=== PATIENT | female | born 1995 | race Caucasian/White ===

== ENCOUNTER 2022-06-01 14:53 | Outpatient (CLI) | payer MEDICAID, SELFPAY ==
--- OUTSIDE RECORDS SUMMARY | 2022-06-01 10:17 | XMS_ITS | Encounter Summary ---
:1995 Author Organization [facility] Address [address] [place] [address] Care Team Providers Name Role Phone Alina Morales M.D. Primary Care Provider [phone] Encounter Details Date Type Department Care Team Description 03/03/2020 Orders Only RST PCP [facility] MNT Alina Young M.D. [address] [place], [place] [phone] (Wo rk) Social History Tobacco Use Types Packs/Day Years Used Date Smoking Tobacco: Never Sex Assigned at Date Recorded Not on file documented as of this encounter Plan of Treatment Not on filedocumented as of this encounter Visit Diagnoses Not on filedocumented in this encounter Care Teams Pc Installation Engineer Relationship Specialty Start Date End Date Alina Morales M.D. PCP - General 03/31/17 11/26/20 [address] [place] [address] documented as of this encounter
--- OUTSIDE RECORDS SUMMARY | 2022-06-01 10:17 | XMS_ITS | Encounter Summary ---
:1995 Author Organization [facility] Address [address] [place] [address] Care Team Providers Name Role Phone Justin Taylor M.D. Primary Care Provider Encounter Details Date Type Department Care Team Description 06/02/2021 Orders Only [facility] Joan Bradford M.D. [address] [facility] [place] [phone] (Wo rk) Social History Tobacco Use Types Packs/Day Years Used Date Smoking Tobacco: Never Sex Assigned at Date Recorded Not on file documented as of this encounter Plan of Treatment Not on filedocumented as of this encounter Visit Diagnoses Not on filedocumented in this encounter Care Teams Asphalt Smoother Relationship Specialty Start Date End Date Justin Taylor M.D. PCP - General 11/27/20 [address] [facility] [place] [address] documented as of this encounter
--- OUTSIDE RECORDS SUMMARY | 2022-06-01 10:17 | XMS_ITS | Encounter Summary ---
:1995 Author Organization [facility] Address [address] [place] [address] Care Team Providers Name Role Phone Justin Taylor M.D. Primary Care Provider Encounter Details Date Type Department Care Team Description 02/03/2021 Orders Only [facility] Sa jenny James M.D. [address] [place], [place] [phone] (Wo rk) Social History Tobacco Use Types Packs/Day Years Used Date Smoking Tobacco: Never Sex Assigned at Date Recorded Not on file documented as of this encounter Plan of Treatment Not on filedocumented as of this encounter Visit Diagnoses Not on filedocumented in this encounter Care Teams Senior Business Consultant Relationship Specialty Start Date End Date Justin Taylor M.D. PCP - General 11/27/[address] [place], [place] [address] [phone] documented as of this encounter
--- OUTSIDE RECORDS SUMMARY | 2022-06-01 10:17 | XMS_ITS | Encounter Summary ---
:1995 Author Organization [facility] Address [address] [place] [address] Care Team Providers Name Role Phone Alina Morales M.D. Primary Care Provider [phone] Encounter Details Date Type Department Care Team Description 06/23/2017 Hospital Encounter HX [facility] Robert Medley, P.A.-CCat [address] [place], [place] [phone] (Wo rk) Social History Tobacco Use Types Packs/Day Years Used Date Smoking Tobacco: Never Sex Assigned at Date Recorded Not on file documented as of this encounter Last Filed Vital Signs Vital Sign Reading Time Taken Comments Blood Pressure 110/70 06/23/2017 10:24 AM CDT Pulse 68 06/23/2017 10:24 AM CDT Temperature - - Respiratory Rate 16 06/23/2017 10:24 AM CDT Oxygen Saturation - - Inhaled Oxygen Concentration - - Weight 76.1 kg (167 lb 12.3 oz) 06/23/2017 10:24 AM CDT Height 163 cm (5' 4.17) 06/23/2017 10:24 AM CDT Body Mass Index 28.64 06/23/2017 10:24 AM CDT documented in this encounter Progress Notes Andria Matias, P.A.-C. - 06/23/2017 10:11 AM CDT FM-LE CHEEIF COMPLAINT Rash, missed period HISTORY OF PRESENT ILLNESS Ishaan is a very pleasant 22-year-old female patient who presents to the clinic today for evaluationof patches of skin that have been present for approximately 2 months now. Patient states that the patches of skin are not bothersome to her. The first one actually started on her right trunk just underthe right axilla. That one is the biggest. It is slightly raised, red, and oblong with big borders. She then developed a couple more of the patches on the nape of her neck and just a couple scattered on the trunk. There may be 5 of them total today. Patient states she has pretty much tried everything on them. She has tried an antifungal cream, and she states that that just made them burn. She has tried an antibacterial. She has tried a certain salve that her grandfather gave her. She has not tried any steroids. She is not having any systemic symptoms. Patient does note that she has actually missed 2 periods now. However, she had her last period at the end of March or early April. And now it is a month later and she has just missed her second period. She states she and her boyfriend are living together and were not specifically trying to get but were not against getting , so this would be happy news if she did end up being . She is not having any vaginal bleeding or vaginal discharge. MEDICATIONS TriNessa oral tablet daily. ALLERGIES No known allergies. DIAGNOSTICS She has done 2 home tests, which have been negative. Physical exam Skin: approximately 1cm x2 cm slightly rasied erythematous patches over right axilla and left nape of neck IMPRESSION/REPORT/PLAN 1. Pityriasis rosea. I think patient's rash is most consistent with pityriasis rosea. I printed information for patient about this rash. Generally duration of rash is approximately 2 to 3 months. It has been about 2 months. I did prescribe triamcinolone cream for patient to use on the rash. 2. Amenorrhea. Beta HCG lab draw today as patient has had 2 negative tests. It could be her HCG was low positive as this could be early versus other, so we will repeat the beta HCG test in approximately 1 week. If it is elevated, we will send to OB. Andria Matias P.A.-C./ariella Electronically Signed By: ANDRIA MATIAS PA-C On: 07/06/2017 06:23 PM Modified by and Electronically Signed by: ANDRIA MATIAS PA-C On: 07/06/2017 06:23 PM Source: [facility] MHSDOLHERACLIOSYS Document Id: [id number] documented in this encounter Miscellaneous Notes Miscellaneous - Jaret Kyle L.P.N. - 06/27/2017 9:49 AM CDT set up OB appointments Document Contains Addenda Addendum by JENNIFER CAGE RN on June 27, 2017 10:40:06 CDT Spoke with Ishaan. States she is seeing a different provider for her . Addendum by JENNIFER CAGE RN on June 27, 2017 10:30:29 CDT Called Ishaan. No answer. Left message to call clinic back. From: JARET KYLE LPN ( Polly Nurse) To: FB Obstetrics/Gynecology Nurse; Sent: 06/27/2017 09:49:10 CDT Subject: set up OB appointments Patient was in to see Andria on 06/23. She had a blood drawn hCG that came back elevated. We need to set patient up for OB appointments. Source: [facility] POWERCHART Document Id: [id number] Miscellaneous - Andria Matias P.A.-C. - 06/23/2017 6:19 PM CDT Results Notification Document Contains Addenda Addendum by ANDRIA MATIAS PA-C on July 01, 2017 15:25:55 CDT noted. Addendum by JARET KYLE LPN on June 27, 2017 13:58:17 CDT Spoke with: ( X ) Patient ( _ ) Parent ( _ ) Spouse ( _ ) Child ( ) Other: _ Call back telephone number: [phone] Reason for Call: -lab results Chief Complaint: Patient informed of message below, transferred to schedule lab only appointment Patient/Caller response to Education/Information given: ( X ) Verbalizes understanding of instructions ( _ ) Provide intervention per provider instruction ( _ ) Reinforce information already given ( _ ) Reinforce Plan of Care ( _ ) Provide preprinted information by mail (if applicable) Source/Reference used (if applicable): Andria Matias OK to leave message on voice mail? DEWEY OK to send message via patient portal? _ Patient told to expect return call: ( _ ) today ( _ ) tomorrow ( _ ) next work day Callers preferred language for Healthcare discussion: czech Was an senior asic design engineer used for this call? no Other ( --_ ) Addendum by FREDDY VALLADARES on June 27, 2017 13:02:40 CDT Pt returning call to nurse, please call back [phone] Addendum by ANDRIA MATIAS PA-C on June 27, 2017 12:55:26 CDT From: ANDRIA MATIAS PA-C To: DARIO Matias Nurse; Sent: 06/27/2017 12:55:26 CDT Show up: 06/27/2017 12:34:00 CDT Subject: RE: Results Notification I tried to call her to explain to her that after looking further at her pregnany hormone result, it is a low positive so I have been informed that we should recheck the result in about a week to see ifit continues to rise before she sees OB. I am sorry to say that it is a possiblity that it is a false positive versus an early . So our first step is to recheck the blood test. then if the second blood test is elevated, we will send her to OB. left message asking her to call back. If she calls back looking for information you may let her known and help her schedule another blood test Addendum by JARET KYLE LPN on June 27, 2017 09:46:18 CDT From: JARET KYLE LPN ( Polly Nurse) To: ANDRIA MATIAS PA-C; Sent: 06/27/2017 09:46:18 CDT Show up: 06/27/2017 09:46:00 CDT Subject: RE: Results Notification In [place] we just need to send a message to the OB nurses and they will call the patient to set up her appointments. From: ANDRIA MATIAS PA-C To: DARIO Matias Nurse; Sent: 06/23/2017 18:19:00 CDT Show up: 06/23/2017 18:12:00 CDT Subject: Results Notification called patient to let her know that her hormone is elevated. Please find out the process for patient's for starting OB care here. I know regina acevedo, the patient's meet with Shanell Kaplan RN to get set up for OB cares and have appropriate testing. Is there an equivalent in [place] or do I just do an OB referral? Results: Date Result Name Ind Value Ref Range 06/23/2017 11:34 Beta hCG Qnt (H) 38.0 IU/L ( - <=4.9) Source: [facility] POWERCHART Document Id: [id number] Miscellaneous - Jaret Kyle L.P.NCat - 06/23/2017 10:28 AM CDT Health Assessment Health Assessment Entered On: 06/23/2017 10:29 CDT Performed On: 06/23/2017 10:28 CDT by JARET KYLE LPN Health Assessment Complete Health Assessment Complete or Modified : Annual Health Assessment Annual Health Assessment Completed : Yes JARET KYLE LPN - 06/23/2017 10:28 CDT Nutrition Nutrition Risk Factors by History Adult : None JARET KYLE LPN - 06/23/2017 10:28 CDT Functional Current Daily Living Assistance : None JARET KYLE LPN - 06/23/2017 10:28 CDT Dependent Habits Exposure to Tobacco Smoke : Lives with someone who smokes, Other: Never Smoking Status : Never smoker Tobacco 2A : No Tobacco Use/Currently Using : No Tobacco Use/Last 30 Days : No Tobacco Use/Last 12 months : No Alcohol Use : No JARET KYLE LPN - 06/23/2017 10:28 CDT Caffeine Use Grid Caffeine Use : Current Type : Chocolate, Coffee, Soft drinks Frequency : Daily Amount : 1 cup coffee JARET KYLE LPN - 06/23/2017 10:28 CDT Psychosocial Domestic Abuse Concerns : None Behavioral Health Screen/Safety Assmt : No Orthodox Preference : No qualifying data available. JARET KYLE LPN - 06/23/2017 10:28 CDT Advance Directive Advanced Directives : No Advance Directive Additional Information : No JARET KYLE LPN - 06/23/2017 10:28 CDT Educ Needs Learning Style Preference Adult Grid Patient : Demonstration Family : None JARET KYLE LPN - 06/23/2017 10:28 CDT [facility] Document Id: [id number] CDT!33 Miscellaneous - Jaret Kyle L.PCatNCat - 06/23/2017 10:24 AM CDT Adult Solutions Engineer Intake/History Adult Solutions Engineer Intake/History Entered On: 06/23/2017 10:28 CDT Performed On: 06/23/2017 10:24 CDT by JARET KYLE LPN Intake Chief Complaint : red patches on back of neck and under arms - 2 months, itches, trying to get - missed period last month, home tests negative Temperature Core : 37.2 DegC(Converted to: 99.0 DegF) Peripheral Pulse Rate : 68 /min Respiratory Rate : 16 /min Systolic Blood Pressure : 110 mmHg Diastolic Blood Pressure : 70 mmHg NIBP Mean : 83 mmHg BP Location : Left upper extremity Blood Pressure Cuff Size : Regular Height : 163 cm(Converted to: 5 ft 4 inch(es), 64 inch(es)) Actual Weight : 76.1 kg(Converted to: 167 lb 12 oz) Weight Source : Standing scale Dosing Weight Clinic : 76.1 kg Clinic BSA : 1.86 Body Mass Index : 28.64 kg/m2 JARET KYLE KATHIE - 06/23/2017 10:24 CDT General Info Information Given By : Patient Preferred Communication Mode : Verbal, Written Languages : Amharic Is Patient Female and 13-50 no hysterectomy : Yes Status : Patient denies Are you ? : No JARET KYLE KATHIE - 06/23/2017 10:24 CDT Subjective Pain Symptoms : No JARET KYLE KATHIE - 06/23/2017 10:24 CDT Dependent Habits Exposure to Tobacco Smoke : Lives with someone who smokes, Other: Never Smoking Status : Never smoker Tobacco 2A : No Tobacco Use/Currently Using : No Tobacco Use/Last 30 Days : No Tobacco Use/Last 12 months : No JARET KYLE KATHIE - 06/23/2017 10:24 CDT Caffeine Use Grid Caffeine Use : Current Type : Chocolate, Coffee, Soft drinks Frequency : Daily Amount : 1 cup coffee JARET KYLE Sharif SHEARER HELPER - 06/23/2017 10:24 CDT Source: [facility] PortafareCHART Document Id: [id number] CDT!39 documented in this encounter Plan of Treatment Not on filedocumented as of this encounter Procedures Procedure Name Priority Date/Time Associated Diagnosis Comme nts BHCG (BETA-HUMAN Routine 06/23/2017 11:34 AM Resu lts for this CHORIONIC CDT procedure are i n GONADOTROPIN), the results MILENA, S section. documented in this encounter Results (ABNORMAL) bHCG (Beta-Human Chorionic Gonadotropin), Quantitative (06/23/2017 11:34 AM CDT) P athologist Signature Beta-HCG, 38.0 (H) <=4.9 IUL POWERCHART Quantitative, S Comment: Tanisha- and postmenopausal females >40 yea rs of age may have detectable hCG concentrations (<14 IU/L) due to pituitary production of hCG. Biotin has been identified by the malka mcmillan as a potential interfering substance. Higher concentrations of biotin may be found in multivitamins, hair/nail supplements, and workout supplements. If the result does not match clinical observat ions, repeat testing after patient refrains from the use of supplements for at least 12 hours. Specimen (Source) Anatomical Collection Method Collection Time Re ceived Time Location / / Volume Laterality Blood 06/23/2017 11:34 AM CDT Andria Medley P.A.-C. LAB BLOOD ADD-ON Performing Organization Address City/State/ZIP Code Phon e Number POWERCHART POWERCHART NA documented in this encounter Visit Diagnoses Not on filedocumented in this encounter Care Teams Cobol Programmer Relationship Specialty Start Date End Date Alina Morales M.D. PCP - General 03/31/17 11/26/20 [address] [address] documented as of this encounter
--- OUTSIDE RECORDS SUMMARY | 2022-06-01 10:17 | XMS_ITS | Encounter Summary ---
:1995 Author Organization [facility] Address [address] [place] [address] Care Team Providers Name Role Phone Alina Morales M.D. Primary Care Provider [phone] Encounter Details Date Type Department Care Team Description 09/06/2018 Orders Only Department of [place], [address] [place] [address] [place] [address] [place] [address] Social History Tobacco Use Types Packs/Day Years Used Date Smoking Tobacco: Never Sex Assigned at Date Recorded Not on file documented as of this encounter Plan of Treatment Not on filedocumented as of this encounter Visit Diagnoses Not on filedocumented in this encounter Care Teams Slip Maker Relationship Specialty Start Date End Date Alina Morales M.D. PCP - General 03/31/17 11/26/20 [address] [place] [phone] documented as of this encounter
--- OUTSIDE RECORDS SUMMARY | 2022-06-01 10:17 | XMS_ITS | Clinical Summary ---
:1995 Author Organization [facility] Address [address] [place] [address] Care Team Providers Name Role Phone Justin Taylor M.D. Primary Care Provider Source Comments Patient records contain information from all sites at [facility]. For routine questions regarding patient records, call [phone] during business hours, M-F 8:00 AM - 5:00 PM Central Time. Record requests for emergency care only can be directed to [phone] at any time.[facility] Immunizations Name Administration Dates Next Due HepB, Unspecified 1995, 1995, 1995 MMR 01/28/2000 MMRV 08/16/1996 MPSV4 01/26/2007 Tdap 01/26/2007 Family History Medical History Relation Name Comments Hypothyroidism Mother Relation Name Status Comments Mother Social History Tobacco Use Types Packs/Day Years Used Date Smoking Tobacco: Never Sex Assigned at Date Recorded Not on file Last Filed Vital Signs Vital Sign Reading Time Taken Comments Blood Pressure 110/70 06/23/2017 10:24 AM CDT Pulse 68 06/23/2017 10:24 AM CDT Temperature - - Respiratory Rate 16 06/23/2017 10:24 AM CDT Oxygen Saturation - - Inhaled Oxygen Concentration - - Weight 76.1 kg (167 lb 12.3 oz) 06/23/2017 10:24 AM CDT Height 163 cm (5' 4.17) 06/28/2017 11:56 AM CDT Body Mass Index 28.64 06/23/2017 10:24 AM CDT Plan of Treatment Health Maintenance Due Date Last Done Comments HIV Screening 1995 Hepatitis C Screening 1995 COVID-19 Vaccine (#1) 1995 Depression Screening 10/17/2021 (Annual PHQ-2) Influenza Vaccine (#1) 2022 07/17/2019, 08/02/2011, 08/02/2011, Additional history exists Cervical Cancer Screening 02/28/2024 02/27/2021 DTaP,Tdap,and Td Vaccines 07/31/2031 07/31/2021, 01/06/2018 , (9 - Td or Tdap) 01/26/2007, Additional history exists Hepatitis B Vaccines Completed 1995, 1995, 1995, Additional history exists Pneumococcal vaccine (0-64 Aged Out No lo nger eligible years) based on patient 's age to complete this topic Insurance Payer Benefit Plan / Subscriber ID Effective Phone Address T ype Group Dates [facility] [id number] 2020-Pres [phone] [address] PPO OPEN ACCESS [facility] [place] [address] Care Teams Betting Agency Manager Relationship Specialty Start Date End Date Justin Taylor M.D. PCP - General 11/27/[address] [place] [address] [place] [phone]
--- OUTSIDE RECORDS SUMMARY | 2022-06-01 10:17 | XMS_ITS | Encounter Summary ---
:1995 Author Organization [facility] Address [address] [place] [address] Care Team Providers Name Role Phone Alina Morales M.D. Primary Care Provider [phone] Encounter Details Date Type Department Care Team Description 06/28/2017 Hospital Encounter HX [facility] Alina Wu M.D. [address] [place], [place] [phone] (Wo rk) Social History Tobacco Use Types Packs/Day Years Used Date Smoking Tobacco: Never Sex Assigned at Date Recorded Not on file documented as of this encounter Last Filed Vital Signs Vital Sign Reading Time Taken Comments Blood Pressure - - Pulse - - Temperature - - Respiratory Rate - - Oxygen Saturation - - Inhaled Oxygen Concentration - - Weight - - Height 163 cm (5' 4.17) 06/28/2017 11:56 AM CDT Body Mass Index - - documented in this encounter Miscellaneous Notes Miscellaneous - Andria Matias P.A.-C. - 06/29/2017 1:32 PM CDT Addendum by ANDRIA MATIAS PA-C on July 01, 2017 16:47:40 CDT noted. Addendum by JENNIFER CAGE RN on June 30, 2017 13:09:52 CDT From: JENNIFER CAGE RN (FB Obstetrics/Gynecology RN) To: ANDRIA MATIAS PA-C; ISHAAN SULLIVAN Sent: 06/30/2017 13:09:52 CDT Subject: RE: Spoke with this patient yesterday. She has chosen a different provider for her . From: ANDRIA MATIAS PA-C To: ISHAAN SULLIVAN Cc: FB Obstetrics/Gynecology RN; Sent: 06/29/2017 13:32:08 CDT Ishaan, Your Beta HCG is much higher than it was last week meaning that is much more probable. Last week the was at 38; now it is at 568. Congratulations! It seems that it is still very early pregnacny and would have been to early to see anything on the urine tests. You will have to make an appointment in the traffic clerk department so I will send a message to them and you should be able to schedule to get things started. Sincerely, Andria Matias PA-C OB nursing, will you please help this patient get set up for OB care? Results: Date Result Name Ind Value Ref Range 06/28/2017 12:01 Beta hCG Qnt (H) 568.8 IU/L ( - <=4.9) Source: [facility] POWERCHART Document Id: [id number] documented in this encounter Plan of Treatment Not on filedocumented as of this encounter Procedures Procedure Name Priority Date/Time Associated Diagnosis Comme nts BHCG (BETA-HUMAN Routine 06/28/2017 12:01 PM Resu lts for this CHORIONIC CDT procedure are i n GONADOTROPIN), the results MILENA, S section. documented in this encounter Results (ABNORMAL) bHCG (Beta-Human Chorionic Gonadotropin), Quantitative (06/28/2017 12:01 PM CDT) Analysis Performed At Patho logist Time Signature Beta-HCG, 568.8 (H) <=4.9 IUL POWERCHART Quantitative, S Comment: Tanisha- and postmenopausal females >40 yea rs of age may have detectable hCG concentrations (<14 IU/L) due to pituitary production of hCG. Biotin has been identified by the [facility] as a potential interfering substance. Higher concentrations of biotin may be found in multivitamins, hair/nail supplements, and workout supplements. If the result does not match clinical observat ions, repeat testing after patient refrains from the use of supplements for at least 12 hours. Specimen (Source) Anatomical Collection Method Collection Time Re ceived Time Location / / Volume Laterality Blood 06/28/2017 12:01 PM CDT Andria Medley P.A.-C. LAB BLOOD ADD-ON Performing Organization Address City/State/ZIP Code Phon e Number POWERCHART POWERCHART NA documented in this encounter Visit Diagnoses Not on filedocumented in this encounter Care Teams Recep Relationship Specialty Start Date End Date Alina Morales M.D. PCP - General 03/31/17 11/26/[address], [place] [address] documented as of this encounter
--- OUTSIDE RECORDS SUMMARY | 2022-06-01 10:17 | XMS_ITS | Encounter Summary ---
:1995 Author Organization [facility] Address [address] [place] [address] Care Team Providers Name Role Phone Unavailable Primary Care Provider Unavailable Encounter Details Date Type Department Care Team Description 04/02/2015 Hospital Encounter HX [facility] Bo Cameron, P.A. -C. [address] [place] [address] (Wo rk) Social History Tobacco Use Types Packs/Day Years Used Date Smoking Tobacco: Never Assessed Sex Assigned at Date Recorded Not on file documented as of this encounter Last Filed Vital Signs Vital Sign Reading Time Taken Comments Blood Pressure - - Pulse - - Temperature - - Respiratory Rate - - Oxygen Saturation - - Inhaled Oxygen Concentration - - Weight - - Height 163 cm (5' 4.17) 04/02/2015 8:22 AM CDT Body Mass Index - - documented in this encounter Miscellaneous Notes Miscellaneous - Migdalia Miller, R.N. - 04/02/2015 8:23 AM CDT PPD Screen PPD Screen Entered On: 04/02/2015 8:24 CDT Performed On: 04/02/2015 8:23 CDT by MIGDALIA MILLER PPD Screening Bloody Sputum : No Fatigue : No Fever : No Loss of Appetite : No Night Sweats : No Persistent Cough Greater Than 3 Weeks : No Weight Loss : No MIGDALIA MILLER - 04/02/2015 8:23 CDT TB Symptoms Grid Alcohol and Drug Use : No Employee of Institutional Living Environment : No Health Care Employee : Yes History of Exposure to TB : No History of Positive Chest X-Ray for TB : No History of Positive TB Skin Test : No Homeless : No Known Immunosuppression : No Recent Immigrant : No Resident of Institutional Living Environment : No MIGDALIA MILLER - 04/02/2015 8:23 CDT PPD Screening Grid Severe reaction to previous TST (necrosis, blistering, anaphylactic shock, or ulcerations) : No Smallpox vaccine within last 4 - 6 weeks : No Yellow Fever vaccine in last 4 - 6 weeks : No Varicella vaccine within last 4 - 6 weeks : No Measles vaccine within last 4 - 6 weeks : No Any live virus vaccine within last 4 - 6 weeks : No MIGDALIA MILLER - 04/02/2015 8:23 CDT Source: [employer] Document Id: [id number] CDT!28 documented in this encounter Plan of Treatment Not on filedocumented as of this encounter Visit Diagnoses Not on filedocumented in this encounter
--- OUTSIDE RECORDS SUMMARY | 2022-06-01 10:17 | XMS_ITS | Encounter Summary ---
:1995 Author Organization [facility] Address [address] [place] [address] Care Team Providers Name Role Phone Unavailable Primary Care Provider Unavailable Encounter Details Date Type Department Care Team Description 04/04/2015 Hospital Encounter HX [facility] Provider, Cody rodriguez Social History Tobacco Use Types Packs/Day Years [...] - - Height 163 cm (5' 4.17) 04/04/2015 8:33 AM CDT Body Mass Index - - documented in this encounter Procedure Notes Halima Malhotra, L.P.N. - 04/04/2015 8:41 AM CDT PPD Reading PPD Reading Entered On: 04/04/2015 8:41 CDT Performed On: 04/04/2015 8:41 CDT by HALIMA MALHOTRA PPD Reading MM of Induration : 0 mm PPD Interpretation : Negative PPD Placed On : Right inner forearm PPD Date/Time Administered : 04/02/2015 8:36 CDT HALIMA MALHOTRA - 04/04/2015 8:41 CDT Source: [facility] POWERCHART Document Id: [id number] CDT!6 documented in this encounter Plan of Treatment Not on filedocumented as of this encounter Procedures Procedure Name Priority Date/Time Associated Diagnosis Comme nts HX TB SKIN TEST-LAB Routine 04/04/2015 8:41 AM Re sults for this CDT procedure are i n the results section. documented in this encounter Results HX TB SKIN TEST-LAB (04/04/2015 8:41 AM CDT) P athologist Signature TB Skin Test 0 MM POWERCHART TB Skin Test Negative POWERCHART Specimen (Source) Anatomical Collection Method Collection Time Re ceived Time Location / / Volume Laterality 04/04/2015 8:41 AM CDT Alina Morales M.D. LAB HISTORICAL ORDERS Performing Organization Address City/State/ZIP Code Phon e Number POWERCHART documented in this encounter Visit Diagnoses Not on filedocumented in this encounter
--- OUTSIDE RECORDS SUMMARY | 2022-06-01 10:17 | XMS_ITS | Encounter Summary ---
:1995 Author Organization [facility] Address [address] [place] [address] Care Team Providers Name Role Phone Unavailable Primary Care Provider Unavailable Encounter Details Date Type Department Care Team Description 09/22/2015 Hospital Encounter HX [facility] FAMILYPRA Andra Jimenez APRN, C.N.P. [address] [place] [address] (Wo rk) Social History Tobacco Use Types Packs/Day Years Used Date Smoking Tobacco: Never Assessed Sex Assigned at Date Recorded Not on file documented as of this encounter Last Filed Vital Signs Vital Sign Reading Time Taken Comments Blood Pressure 110/64 09/22/2015 2:49 PM LABEL PINKER Pulse 72 09/22/2015 2:49 PM LABEL PINKER Temperature - - Respiratory Rate 20 09/22/2015 2:49 PM LABEL PINKER Oxygen Saturation - - Inhaled Oxygen Concentration - - Weight 74.5 kg (164 lb 3.9 oz) 09/22/2015 2:49 PM LABEL PINKER Height 163 cm (5' 4.17) 09/22/2015 2:49 PM LABEL PINKER Body Mass Index 28.04 09/22/2015 2:49 PM LABEL PINKER documented in this encounter Progress Notes Gilson Jimenez, TACO, C.N.P. - 09/22/2015 4:27 PM CST Clinic Full Note CHIEF COMPLAINT/REASON FOR VISIT Stomach pain that started 4 days ago. Pain is constant. Not sleeping well. Ears ringing. HISTORY OF PRESENT ILLNESS Ishaan states she has had LLQ discomfort and increased gas for the past 4 days. She has felt nauseated, no emesis. No fever. She has not had a bowel movement for 4 days. 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 Flu shot declined. SYSTEMS REVIEW Positive for that mentioned in the History of Present Illness and Past Medical History. All other systems were reviewed and were negative. VITAL SIGNS T: 36.8 ??C (Core) HR: 72 RR: 20 BP: 110 / 64 HT: 163 cm WT: 74.5 kg BMI: 28.04 PHYSICAL EXAMINATION GENERAL: Well-developed, well-nourished, in no acute distress. SKIN: Warm and dry. HEENT: TMs clear. Throat clear. NECK: Supple. No lymphadenopathy or thyromegaly. HEART: Regular rate and rhythm. S1, S2. No murmur. LUNGS: Clear to auscultation. No wheezes or rales. ABDOMEN: Soft, LLQ tenderness. No distention, no focal mass. No hepatosplenomegaly. EXTREMITIES: Warm, dry. No peripheral edema. LAB RESULTS Urine culture and chlamydia screen pending. UA Color Yellow 09/22/2015 15:21 LABEL PINKER UA Clarity Clear 09/22/2015 15:21 LABEL PINKER UA Spec Grav 1.025 09/22/2015 15:21 LABEL PINKER UA pH 5.0 09/22/2015 15:21 LABEL PINKER UA Protein Negativ 09/22/2015 15:21 LABEL PINKER UA Glucose Negativ 09/22/2015 15:21 LABEL PINKER UA Ketones Negativ 09/22/2015 15:21 LABEL PINKER UA Bili Negativ 09/22/2015 15:21 LABEL PINKER UA Urobilinogen 0.2 09/22/2015 15:21 LABEL PINKER UA Blood Trace. 09/22/2015 15:21 LABEL PINKER (Abnormal) UA Nitrite Negativ 09/22/2015 15:21 LABEL PINKER UA Leuk Est Smal 09/22/2015 15:21 LABEL PINKER (Abnormal) UR WBC 4-10 09/22/2015 15:21 LABEL PINKER UR RBC Occ-2 09/22/2015 15:21 LABEL PINKER UR Bacteria Present 09/22/2015 15:21 LABEL PINKER (Abnormal) DIAGNOSTIC RESULTS X-ray abdomen shows fecal retention. IMPRESSION/REPORT/PLAN Constipation NOS Miralax as directed. Increase fiber in the diet. Drink plenty of fluids. Total time spent with the patient 25 minutes. 20 minutes of it counseling and coordinating care including discussing treatment and prevention of constipation. Ordered: OV Est Pt Level 4 - 54957 - 25 min Nausea NOS Ordered: OV Est Pt Level 4 - 65089 - 25 min Pain L Lower Quadrant (LLQ) Ordered: Culture Urine OV Est Pt Level 4 - 09120 - 25 min Orders: Chlamydia by Nucleic Acid Amp Electronically Signed By: GILSON JIMENEZ CNP On: 09/22/2015 04:34 PM Source: [employer] POWERCHART Document Id: [id number] L PINKER documented in this encounter Nursing Notes Gilson Jimenez APRN, C.N.P. - 09/22/2015 4:10 PM CST Ambulatory Patient Education The following Patient Education Materials have been given to the patient: Patient Education Materials: ED/Trauma Treating Constipation ED/Trauma Treating Constipation Constipation is a common and often uncomfortable problem. Constipation means you have bowel movements fewer than three times per week, or strain to pass hard, dry stool. It can last a short time. Or itcan be a problem that never seems to go away. The good news is that it can often be treated and controlled. Eat More Fiber One of the best ways to help treat constipation is to increase your fiber intake. You can do this either through diet or by using fiber supplements. Fiber (in whole grains, fruits, and vegetables) addsbulk and absorbs water to soften the stool. This helps the stool pass through the colon more easily.When you increase your fiber intake, do it slowly to avoid side effects such as bloating. Also increa se the amount of water that you drink, too. Eating more of the following foods can add fiber to your diet. ?? High-fiber cereals ?? Whole grains, bran, and brown rice ?? Vegetables such as carrots, broccoli, and greens ?? Fresh fruits (especially apples, pears, and dried fruits like raisins and apricots) ?? Nuts and legumes (especially beans such as lentils, kidney beans, and garg beans) Get Physically Active Exercise helps improve the working of your colon. This helps ease constipation. Try to get some activity every day. If you havent been active for a while, talk to your health care provider before starting again. Avoid Overuse of Laxatives Some laxatives stimulate the colon to work more quickly. However, using laxatives too often can leadto dependency If you use laxatives often, talk to the doctor. He or she can help you ease off of them. And dont use stimulant laxatives without talking to your health care provider first. Note: Your health care provider may suggest an cynk-ywy-lnzjeiv product to help ease your constipation. If so, follow directions carefully when using it. ?? [id number] [facility], [address] [place] [address]. All rights reserved. This information is not intended as a substitute for professional medical care. Always follow your healthcare professional's instructions. This document has images extracted. Please consider using [employer]ok for all your patient education needs. Source: [facility] POWERCHART Document Id: [id number] L PINKER documented in this encounter Miscellaneous Notes Miscellaneous - Gilson Jimenez APRN, C.N.P. - 09/24/2015 11:54 AM LABEL PINKER Normal Results Letter 24 September 2015 ISHAAN SULLIVAN [address] [place] [id number] Dear ISHAAN SULLIVAN, I am pleased to report that your results from the following diagnostic test(s) are normal. Please follow up with us as we discussed during your visit or sooner if you have any concerns. If you have questions or concerns, please do not hesitate to call our office. Result Name Current Result Chlamydia DNA Probe Review 09/22/2015 Sincerely, GILSON JIMENEZ [address] [place] [address] Electronic Signature Electronically Signed By: GILSON JIMENEZ CNP On: 24 September 2015 This document has images extracted. Source: [facility] POWERCHART Document Id: [id number] Miscellaneous - Gilson Jimenez, TACO, C.N.P. - 09/22/2015 4:10 PM CST Ambulatory Patient Summary [place] [id number] [place] [id number] Visit Information Name: ISHAAN SULLIVAN [facility] Number: [id number] Current Date: 09/22/2015 16:10:12 Physicians Attending Provider: GILSON JIMENEZ CNP Primary Care Provider: SHERLYN SOLIS MD ISHAAN SULLIVAN has been given the following list of follow-up instructions, medication list, and patient education materials: Follow-up Instructions Your Medications Here is a list of your medications. It is important to take your medications as directed. Use a pillbox or chart to help remind you to take your medications. Please let your doctor or nurse know if you have problems taking your medications. Medication/Strength How to Take Indications/Special Instructions/Comments/Notes for Patient Medication Changes/Routing polyethylene glycol 3350 (MiraLax oral powder for reconstitution) 17 gm, Oral, once a day as needed for Constipation 17gm(about one heaping tablespoon) dissolved in 8oz of water or juice Stop Taking the Following Medications: Medication list as of 09-22-15 16:10 Attention: If you have any medications at home that are not on this list, DO NOT take them until youcontact your provider for clarification. Give a copy of your medication list to your primary care provider. Update your medication list any time medications or doses are changed and carry your medication list at all times in case of emergency. Electronically Signed By: GILSON JIMENEZ CNP Signed On:22-SEP-2015 16:09:48 Your Allergies & Intolerances Substance Reaction Symptoms Category Comments No Known Allergies Drug Your Problem List Problem Status Onset Comments No Chronic Problems Active Your Upcoming Appointments Date Time Location Provider No Appointments found Attention: Contact your local Clinic if further appointment detail needed. Treating Constipation Constipation is a common and often uncomfortable problem. Constipation means you have bowel movements fewer than three times per week, or strain to pass hard, dry stool. It can last a short time. Or itcan be a problem that never seems to go away. The good news is that it can often be treated and controlled. Eat More Fiber One of the best ways to help treat constipation is to increase your fiber intake. You can do this either through diet or by using fiber supplements. Fiber (in whole grains, fruits, and vegetables) addsbulk and absorbs water to soften the stool. This helps the stool pass through the colon more easily.When you increase your fiber intake, do it slowly to avoid side effects such as bloating. Also increase the amount of water that you drink, too. Eating more of the following foods can add fiber to yourdiet. ?? High-fiber cereals ?? Whole grains, bran, and brown rice ?? Vegetables such as carrots, broccoli, and greens ?? Fresh fruits (especially apples, pears, and dried fruits like raisins and apricots) ?? Nuts and legumes (especially beans such as lentils, kidney beans, and garg beans) Get Physically Active Exercise helps improve the working of your colon. This helps ease constipation. Try to get some activity every day. If you havent been active for a while, talk to your health care provider before starting again. Avoid Overuse of Laxatives Some laxatives stimulate the colon to work more quickly. However, using laxatives too often can leadto dependency If you use laxatives often, talk to the doctor. He or she can help you ease off of them. And dont use stimulant laxatives without talking to your health care provider first. Note: Your health care provider may suggest an rhbk-nyq-uzeldij product to help ease your constipation. If so, follow directions carefully when using it. ?? [phone] [facility], [address] [place] [address], [place] [address]. All rights reserved. This information is not intended as a substitute for professional medical care. Always follow your healthcare professional's instructions. Consider Using Patient Online Services Patient Online Services is a secure online and Mobile application that lets you: ?? View lab and test results ?? View portions of your medical record including clinical notes, immunizations and discharge summaries ?? Request an appointment or medication refill ?? Review your appointment schedule ?? Send secure messages to your care team Its easy to create an account if you dont have one. Go to [email or web address] and click on Create Your Account. Then, follow the directions to complete the online form. Youll be asked for your [facility] number which you can find at the top of this document. Your Goals/Additional instructions: This document has images extracted. Please consider using [employer]ok for all your patient education needs. Source: [facility] POWERCHART Document Id: [id number] L PINKER Miscellaneous - Gilson Jimenez APRN, C.N.P. - 09/22/2015 4:10 PM CST Ambulatory Discharge Medication List [address] [id number] Visit Information Name: ISHAAN SULLIVAN [facility] Number: [id number] Visit Date: 09/22/2015 16:10:12 Attending Provider: GILSON JIMENEZ CNP Primary Care Provider: SHERLYN SOLIS MD BABATUNDE ISHAAN has been given the following list of medications: Your Medications It is important to take your medications as directed. Use a pill box or chart to help remind you to take your medications. Please let your doctor or nurse know if you have problems taking your medications. Medication/Strength How to Take Indications/Special Instructions/Comments/Notes for Patient Medication Changes/Routing polyethylene glycol 3350 (MiraLax oral powder for reconstitution) 17 gm, Oral, once a day as needed for Constipation 17gm(about one heaping tablespoon) dissolved in 8oz of water or juice Stop Taking the Following Medications: Medication list as of 09-22-15 16:10 Attention: If you have any medications at home that are not on this list, DO NOT take them until youcontact your provider for clarification. Give a copy of your medication list to your primary care provider. Update your medication list any time medications or doses are changed and carry your medication list at all times in case of emergency. Electronically Signed By: GILSON JIMENEZ PAYMENT REP Signed On:22-SEP-2015 16:09:48 Additional Information: Source: [facility] POWERCHART Document Id: [id number] L PINKER Miscellaneous - Hoa Mir L.P.N. 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 Pain is constant. Not sleeping well. Ears ringing. Temperature Core : 36.8 DegC(Converted to: 98.2 DegF) Peripheral Pulse Rate : 72 /min Respiratory Rate : 20 /min Heart Rhythm : Regular Systolic Blood Pressure : 110 mmHg Diastolic Blood Pressure : 64 mmHg NIBP Mean : 79 mmHg BP Location : Right upper extremity Blood Pressure Cuff Size : Regular Height : 163 cm(Converted to: 5 ft 4 inch(es), 64 inch(es)) Actual Weight : 74.5 kg(Converted to: 164 lb 4 oz) Weight Source : Standing scale Dosing Weight Clinic : 74.5 kg Clinic BSA : 1.84 Body Mass Index : 28.04 kg/m2 HOA MIR LPN - 09/22/2015 14:49 LABEL PINKER General Info Information Given By : Patient Preferred Communication Mode : Verbal Languages : [place] Is Patient Female and 13-50 no hysterectomy : Yes Status : Patient denies Are you ? : No HOA MIR LPN - 09/22/2015 14:49 LABEL PINKER Subjective Pain Symptoms : Yes HOA MIR LPN - 09/22/2015 14:49 LABEL PINKER Pain Scale Pain Scale Verbal 0-10 : Open HOA MIR LPN - 09/22/2015 14:49 LABEL PINKER Pain Pain Assessment Grid Pain 1 Location : Abdomen Intensity : 5 Time Pattern : Constant HOA MIR KATHIE - 09/22/2015 14:49 LABEL PINKER Dependent Habits Exposure to Tobacco Smoke : Lives with someone who smokes, Other: Never Smoking Status : Never smoker Tobacco 2A : No HOA MIR KATHIE - 09/22/2015 14:49 LABEL PINKER Caffeine Use Grid Caffeine Use : Current Type : Chocolate, Coffee, Soft drinks Frequency : Daily Amount : 1 cup coffee HOA MIR KATHIE - 09/22/2015 14:49 LABEL PINKER Source: [facility] POWERCHART Document Id: [id number] LABEL PINKER!45 L PINKER documented in this encounter Plan of Treatment Not on filedocumented as of this encounter Procedures Procedure Name Priority Date/Time Associated Comments Diagnosis BACTERIAL CULTURE, Routine 09/22/2015 4:20 PM Res ults for this AEROBIC, URINE LABEL PINKER procedure are in the results section. CHLAMYDIA TRACHOMATIS Routine 09/22/2015 3:21 PM Results for this AMPLIFIED RNA LABEL PINKER procedure are in the results section. URINALYSIS, ROUTINE Routine 09/22/2015 3:21 PM Re sults for this LABEL PINKER procedure are i n the results section. URINE MICROSCOPIC Routine 09/22/2015 3:21 PM Resu lts for this LABEL PINKER procedure are i n the results section. DX ABDOMEN SUPINE Routine 09/22/2015 3:13 PM Resu lts for this WITH UPRIGHT OR LABEL PINKER procedure ar e in DECUBITUS 2 VIEWS the result s section. documented in this encounter Results Bacterial Culture, Aerobic, Urine (09/22/2015 4:20 PM LABEL PINKER) [facility] gist Method Time Signature Bacterial POWERCHART Culture, Aerobic, Urine [facility] Mixed sahra. No POWERCHART further studies unless notified. [facility] POWERCHART Microbiology laboratory [phone]. Specimen (Source) Anatomical Collection Method Collection Time Re ceived Time Location / / Volume Laterality Urine, First 09/22/2015 4:20 PM Voided LABEL PINKER Gilson Jimenez APRN, C.N.P. LAB MICROBIOLOGY - GENERAL ORDERABLES Performing Organization Address City/State/ZIP Code Phon e Number POWERCHART Chlamydia Trachomatis Amplified RNA (09/22/2015 3:21 PM LABEL PINKER) Component Value Ref Test Analysis Performed At [facility] Method Time Signature HXChlamydia by POWERCHART Nucleic Acid Amplification HXFinal Negative for POWERCHART Chlamydia trachomatis by RNA amplification. HXFinal Reference: POWERCHART Negative HXFinal If you POWERCHART submitted a female urine sample, please note it is a Laboratory Developed Test. Specimen (Source) Anatomical Collection Method Collection Time Re ceived Time Location / / Volume Laterality Urine 09/22/2015 3:21 PM LABEL PINKER Gilson Jimenez APRN, C.N.P. LAB MICROBIOLOGY - GENERAL ORDERABLES Performing Organization Address City/State/ZIP Code Phon e Number POWERCHART (ABNORMAL) Urine Microscopic (09/22/2015 3:21 PM LABEL PINKER) [facility] Method Time Signature HXUR WBC. 4-10 None Seen POWERCHART HPF HXUR RBC. Occ-2 None Seen POWERCHART HPF HXUR Bacteria, Present (A) None Seen POWERCHART Specimen Anatomical Collection Method Collection Time Receive d Time (Source) Location / / Volume Laterality Urine, First 09/22/2015 3:21 PM 5 3:21 Voided LABEL PINKER PM LABEL PINKER Gilson Jimenez APRN, C.N.P. LAB URINE ORDERABLES Performing Organization Address City/[facility]/ZIP Code Phon e Number POWERCHART (ABNORMAL) Urinalysis, Routine (09/22/2015 3:21 PM LABEL PINKER) [facility] Method Time Signature Clarity Clear Clear POWERCHART HXUr Color Yellow Colorless POWERCHART Specific 1.025 POWERCHART [place], POCT, U pH, POCT, Urine 5.0 <5.0 POWERCHART Protein, Ur, Dip Negative Negative POWERCHART MGDL Glucose Negative Negative POWERCHART MGDL Ketones, QL(U) Negative Negative POWERCHART MGDL HXBILIRUBIN Negative Negative POWERCHART HXBLOOD Trace (A) Negative POWERCHART Leukocyte Small (A) Negative POWERCHART Esterase HXNITRITE Negative Negative POWERCHART Urobilinogen 0.2 0.2 MGDL POWERCHART Specimen (Source) Anatomical Collection Method Collection Time Re ceived Time Location / / Volume Laterality Urine, First 09/22/2015 3:21 PM Voided LABEL PINKER Gilson Jimenez APRN, C.N.P. LAB URINE ORDERABLES Performing Organization Address City/State/ZIP Code Phon e Number POWERCHART DX Abdomen Supine with Upright or Decubitus 2 Views (09/22/2015 3:13 PM LABEL PINKER) Anatomical Region Laterality Modality Abdomen Right Radiographic Imaging Specimen (Source) Anatomical Collection Method Collection Time Re ceived Time Location / / Volume Laterality 09/22/2015 3:13 PM LABEL PINKER Addenda Addendum by Provider, Kaylene Macedo 09/22/2015 3:13 PM LABEL PINKER RAD^^^OW XR Abdomen 2 Views 09/22/2015 15:13:50 Impressions 09/22/2015 3:41 PM LABEL PINKER Fecal retention. Narrative 09/22/2015 3:41 PM LABEL PINKER EXAM: XR Abdomen 2 Views INDICATION: LLQ pain AGE: 20 years-old COMPARISON: None. FINDINGS: No obstruction or ileus. No fr ee air. There is large amount of diffuse colonic fecal retention. Procedure Note David Sharma M.D. / Provider, Kaylene Macedo - 02/24/2017 EXAM: XR Abdomen 2 Views INDICATION: LLQ pain AGE: 20 years-old COMPARISON: None. FINDINGS: No obstruction or ileus. No fr ee air. There is large amount of diffuse colonic fecal retention. IMPRESSION: Fecal retention. Lindsay Garcia(R)(CT), RNkiita(R) IMG DIAGNOSTIC IMAG ING PROCEDURES documented in this encounter Visit Diagnoses Not on filedocumented in this encounter
--- OUTSIDE RECORDS SUMMARY | 2022-06-01 10:17 | XMS_ITS | Encounter Summary ---
:1995 Author Organization [facility] Address [address] [place] [address] Care Team Providers Name Role Phone Alina Morales M.D. Primary Care Provider [phone] Encounter Details Date Type Department Care Team Description 02/27/2018 Orders Only Department of [place] [facility], [address] [place] [address] [place] [address] [place] [address] Social History Tobacco Use Types Packs/Day Years Used Date Smoking Tobacco: Never Sex Assigned at Date Recorded Not on file documented as of this encounter Plan of Treatment Not on filedocumented as of this encounter Visit Diagnoses Not on filedocumented in this encounter Care Teams Tire Service Supervisor Relationship Specialty Start Date End Date Alina Morales M.D. PCP - General 03/31/17 11/26/20 [address] [place] [phone] documented as of this encounter
--- OUTSIDE RECORDS SUMMARY | 2022-06-01 10:17 | XMS_ITS | Encounter Summary ---
:1995 Author Organization [facility] Address [address] [place] [address] Care Team Providers Name Role Phone Unavailable Primary Care Provider Unavailable Encounter Details Date Type Department Care Team Description 09/22/2015 Hospital Encounter HX NO MAPPING Mala Islas, WIGS SALESPERSON, C.N.P. [address] [place], [place] [address] (Wo rk) Social History Tobacco Use Types Packs/Day Years Used Date Smoking Tobacco: Never Assessed Sex Assigned at Date Recorded Not on file documented as of this encounter Miscellaneous Notes Miscellaneous - Conversion, Historical Provider Ser - 09/22/2015 11:59 PM ACCOUNTS RECEIVABLE ACCOUNTANT Coding Summary-Paper Based CODING DATE: 10/15/2015 FINAL [facility] STATUS: * Discharged to Home or Self Care PAYOR: [employer] ADMIT DX: REASON FOR VISIT DX: FINAL DX: PRINCIPAL: R10.32 Left lower quadrant pain SECONDARY: Z11.3 Encounter for screening for infections with a predominantly sexual mode of transmission PROCEDURES DOCTOR NAME DATE NOTE: The code number assigned matches the documented diagnosis and / or procedure in the patient's chart. However, the narrative phrase printed from the coding software may appear abbreviated, or result in slightly different terminology. Coded By: BERNABE CONNOLLY Date Saved: 10/15/2015 02:13 pm Source: [facility] [employer] Document Id: [id number] documented in this encounter Plan of Treatment Not on filedocumented as of this encounter Visit Diagnoses Not on filedocumented in this encounter
--- OUTSIDE RECORDS SUMMARY | 2022-06-01 10:17 | XMS_ITS | Encounter Summary ---
:1995 Author Organization [facility] Address [address] [place] [address] Care Team Providers Name Role Phone Alina Morales M.D. Primary Care Provider [phone] Reason for Visit Reason Onset Date Comments Outpatient COVID-19 Testing 08/24/2020 Encounter Details Date Type Department Care Team Description 08/24/2020 External Outreach Department of Price Rebolledo Infect ion Upper Internal Medicine in J, D.O. Respiratory (Primary [place], [place] [address] Dx) [address] [place] [phone] Social History Tobacco Use Types Packs/Day Years Used Date Smoking Tobacco: Never Sex Assigned at Date Recorded Not on file documented as of this encounter Progress Notes Paloma Marques R.N. - 08/24/2020 8:18 AM CST Encounter created for the drive-through COVID-19 testing. CH BREAKER documented in this encounter Plan of Treatment Not on filedocumented as of this encounter Procedures Procedure Name Priority Date/Time Associated Diagnosis Comme nts SARS CORONAVIRUS-2 Routine 08/24/2020 9:34 AM Infection Upper Results for this RNA, V CROTCH BREAKER Respiratory procedure are i n the results section. documented in this encounter Results SARS Coronavirus-2 RNA, V Symptomatic (08/24/2020 9:34 AM CROTCH BREAKER) [facility] Method Time Signature SARS-CoV-2 Swab, 08/25/2020 MKTO Specimen Nasopharynx 12:31 AM Source CROTCH BREAKER SARS CoV-2 Undetected Undetected 08/25/2020 MKTO RNA, TMA 12:31 AM CROTCH BREAKER Comment: SARS-CoV-2 RNA absent. This result does not rule out COVID-19 in the patient, as the sensitivity of the test depends o n the timing of the specimen collection and the quality of the specim en. Result should be correlated with patient's history and clinical presentat ion. ----ADDITIONAL INFORMATION---- This test is performed using the Aptima SARS-CoV-2 assay ([employer] which has received Emergency Use Authori zation (EUA) by the U.S. Food and Drug Administration. Fact sheets for this Emergency Use Autho rization (EUA) assay can be found at the following links: For Healthcare Providers: https://www.Luxoft a.gov/media/083411/download For Patients: https://www.fda.gov/media/ 312113/download Specimen Anatomical Collection Method Collection Time Receive d Time (Source) Location / / Volume Laterality Varies 08/24/2020 9:34 AM 0 5:05 (Nasopharynx) CROTCH BREAKER PM CROTCH BREAKER Pirce Rebolledo D.O. LAB MICROBIOLOGY - GENERAL O RDERABLES Performing Organization Address City/State/ZIP [facility] [place] Phon [place] Number [facility]- [address] [place] [phone] [place] [address] [place] [address] documented in this encounter Visit Diagnoses Diagnosis Infection Upper Respiratory - Primary documented in this encounter Additional Health Concerns Infection Onset Date Last Indicated Resolved Time COVID19 Pending 08/24/2020 08/24/2020 08/25/2020 12:31 AM CROTCH BREAKER documented as of this encounter Care Teams Accounts Payable Coordinator Relationship Specialty Start Date End Date Alina Morales M.D. PCP - General 03/31/17 11/26/[address] [place] [phone] documented as of this encounter
--- OUTSIDE RECORDS SUMMARY | 2022-06-01 10:17 | XMS_ITS | Encounter Summary ---
:1995 Author Organization [facility] Address [address] [place] [address] Care Team Providers Name Role Phone Alina Morales M.D. Primary Care Provider [phone] Encounter Details Date Type Department Care Team Description 08/16/2017 Orders Only Department of Family [facility] eening Examination Medicine in [place] Judy, Diabe misty [place] Kaylene [address] [place] [address] [place], [place] [phone] Social History Tobacco Use Types Packs/Day Years Used Date Smoking Tobacco: Never Sex Assigned at Date Recorded Not on file documented as of this encounter Plan of Treatment Not on filedocumented as of this encounter Visit Diagnoses Diagnosis Screening Examination Diabetes Mellitus documented in this encounter Care Teams Parts Product Analyst Relationship Specialty Start Date End Date Alina Morales M.D. PCP - General 03/31/17 [address] [place] [phone] documented as of this encounter
--- OUTSIDE RECORDS SUMMARY | 2022-06-01 10:17 | XMS_ITS | Encounter Summary ---
:1995 Author Organization [facility] Address [address] [place] [address] Care Team Providers Name Role Phone Alina Morales M.D. Primary Care Provider Encounter Details Date Type Department Care Team Description 08/24/2020 Admin Visit Department of Family Medicine, [address] [phone] [facility] [phone] Social History Tobacco Use Types Packs/Day Years Used Date Smoking Tobacco: Never Sex Assigned at Date Recorded Not on file documented as of this encounter Plan of Treatment Not on filedocumented as of this encounter Visit Diagnoses Not on filedocumented in this encounter Additional Health Concerns Infection Onset Date Last Indicated Resolved Time COVID19 Pending 08/24/2020 08/24/2020 08/25/2020 12:31 AM SBA BUSINESS DEVELOPMENT OFFICER documented as of this encounter Care Teams Director Sanitation Bureau Relationship Specialty Start Date End Date Alina Morales M.D. PCP - General 03/31/17 11/26/[address], [place] [phone] documented as of this encounter
--- OUTSIDE RECORDS SUMMARY | 2022-06-01 10:18 | XMS_ITS | Encounter Summary ---
:1995 Author Organization [facility] Address [address] [place] [address] Care Team Providers Name Role Phone Unavailable Primary Care Provider Unavailable Encounter Details Date Type Department Care Team Description 06/12/2010 Hospital Encounter HX [facility] FB FAMILYPRA Sherlyn Eaton i, M.D. [address] [place] [phone] (Wo rk) Social History Tobacco Use Types Packs/Day Years Used Date Smoking Tobacco: Never Assessed Sex Assigned at Date Recorded Not on file documented as of this encounter Progress Notes Sherlyn Martinez M.D. - 06/12/2010 12:00 AM CDT [id number] IMPRESSION/REPORT/PLAN She has underlying eczema. This will be treated with betamethasone cream. This may be used until clear and then b.i.d. p.r.n. Some of these areas have become impetiginized. She will use Bactroban cream to the crusty, drainy areas b.i.d. until clear. CHIEF COMPLAINT/REASON FOR VISIT Skin rash. HISTORY OF PRESENT ILLNESS Over the past week, Ishaan has developed some patchy areas of itching and crusting on her right leg and face. She doesn't recall having had these difficulties in the past. They are not painful, but are mildly itchy. CURRENT MEDICATIONS Post-visit Medication Reconciliation 1. Bactroban topical cream twice daily. 2. Diprolene cream twice daily. VITAL SIGNS DATE/TIME 06/12/2010 HEIGHT 163 cm WEIGHT 65 kg TEMPERATURE 36.2 degreesC PULSE 68 SYSTOLIC 110 DIASTOLIC 70 PHYSICAL EXAM AREA EXAM TEXT GENERAL She appears well. SKIN She has a somewhat flakey macular area on the right upper leg without crusting or excoriations. She has a couple of smaller areas scattered on her face with some crusting and yellowish discharge. JLF/glt Signed Sherlyn Gonzalez M.D. Family Medicine Electronically Signed By:SHERLYN GONZALEZ MD On 07/09/2010 05:49 PM Source: [facility] MHSDOLBEYNONRADSYS Document Id: [id number] documented in this encounter Miscellaneous Notes Miscellaneous - Conversion, Historical Provider Ser - 06/12/2010 12:30 PM CDT Adult Collection Card Clerk Intake/History Adult Collection Card Clerk Intake/History Entered On: 06/12/2010 12:31 CDT Performed On: 06/12/2010 12:30 CDT by ANDERSON GARDUNO LPN Intake Chief Complaint: spots on right leg and face x 1 week Temperature Core: 36.2DegC(Converted to: 97.2DegF) (LOW) Peripheral Pulse Rate: 68bpm Systolic Blood Pressure: 110mmHg Diastolic Blood Pressure: 70mmHg NIBP Mean: 83mmHg BP Location: Left upper extremity Height: 163.00cm(Converted to: 5ft 4in, 5.35ft, 64.17in) Clinic BSA: 1.72 Actual Weight: 65.500kg(Converted to: 144.403lb) Body Mass Index: 25kg/m2 Dosing Weight Clinic: 65.50kg ANDERSON GARDUNO LPN - 06/12/2010 12:30 CDT Subjective Pain Symptoms: No ANDERSON GARDUNO LPN - 06/12/2010 12:30 CDT Dependent Habits Tobacco Use/Currently Using: No ANDERSON GARDUNO LPN - 06/12/2010 12:30 CDT Allergies Source: [facility] POWERCHART Document Id: [id number] documented in this encounter Plan of Treatment Not on filedocumented as of this encounter Visit Diagnoses Not on filedocumented in this encounter
--- OUTSIDE RECORDS SUMMARY | 2022-06-01 10:18 | XMS_ITS | Encounter Summary ---
:1995 Author Organization [facility] Address [address] [place] [address] Care Team Providers Name Role Phone Unavailable Primary Care Provider Unavailable Encounter Details Date Type Department Care Team Description 05/10/2012 Hospital Encounter HX [facility] FB FAMILYPRA Alina Eaton i, M.D. [address] [place] [phone] (Wo rk) Social History Tobacco Use Types Packs/Day Years Used Date Smoking Tobacco: Never Assessed Sex Assigned at Date Recorded Not on file documented as of this encounter Last Filed Vital Signs Vital Sign Reading Time Taken Comments Blood Pressure 100/60 05/10/2012 9:55 AM CDT Pulse 72 05/10/2012 9:55 AM CDT Temperature - - Respiratory Rate 16 05/10/2012 9:55 AM CDT Oxygen Saturation - - Inhaled Oxygen Concentration - - Weight 61 kg (134 lb 7.7 oz) 05/10/2012 9:55 AM CDT Height 163 cm (5' 4.17) 05/10/2012 9:55 AM CDT Body Mass Index 22.96 05/10/2012 9:55 AM CDT Body Mass Index Percentile 71.54 % 05/10/2012 9:55 AM CD T Growth Chart: CDC (Girls, 2-20 Years) documented in this encounter Progress Notes Alina Martinez M.D. - 05/10/2012 9:30 AM CDT [id number] CHIEF COMPLAINT/REASON FOR VISIT Ear pain. HISTORY OF PRESENT ILLNESS Ishaan is 17 years old. Over the past couple of days she has had pain in both of her ears, especially the left. About 2 weeks ago she had cold-like symptoms with a sore throat and stuffy nose. She has developed ear pain, especially the left which has worsened over the past couple of days. Her ear hurts when she swallows. She has not noticed any drainage. It is unclear whether her hearing is muffled. CURRENT MEDICATIONS Medications are reviewed and are as outlined in the EMR, including the addition of Augmentin and Cipro HC. VITAL SIGNS HEIGHT: 163 cm WEIGHT: 61 kg TEMPERATURE: 36.5 RESPIRATIONS: 16 PULSE: 72 BLOOD PRESSURE: 100/60 PHYSICAL EXAM ENT: The right tympanic membrane appears normal. The left is obscured by some debris in the ear canal. She has quite a bit of tenderness upon insertion of the ear speculum and does have some tragal tenderness. There is no preauricular adenopathy. LYMPH NODES: No cervical adenopathy. LUNGS: Lungs are clear. HEART: Heart is regular rate and rhythm. IMPRESSION/REPORT/PLAN 1. Left ear pain. It is unclear whether she has otitis media or simply otitis externa, but I will treat for both with Augmentin orally and Cipro HC Otic as outlined in the EMR. 2. She wishes refill of her oral contraceptive and this is provided for her. She has not been sexually active. Alina Gonzalez M.D./nav Electronically Signed By: ALINA GONZALEZ MD On: 06/06/2012 09:28 AM Source: [facility] MHSDOLBEYNONRADSYS Document Id: [id number] documented in this encounter Miscellaneous Notes Miscellaneous - Nitin Avendano RCatNCat - 09/05/2015 4:18 PM CST Med Management Document Contains Addenda Addendum by ALINA MARTINEZ MD on 05 September 2015 16:22:57 FERRIS WHEEL ATTENDANT From: ALINA MARTINEZ MD To: DARIO [place] Medication Refill; Sent: 09/05/2015 16:22:57 FERRIS WHEEL ATTENDANT Subject: RE: Med Management done From: NITIN AVENDANO RN ( [place] Medication Refill) To: ALINA MARTINEZ MD; Sent: 09/05/2015 16:18:06 FERRIS WHEEL ATTENDANT Subject: Med Management On hold pending signature Order:norgestimate-ethinyl estradiol (TriNessa oral tablet) 1 tab(s) PO Daily Qty: 28 tab(s) Refills: 1 Route To [facility] [place] Caller is: ( ) Patient ( ) Mother ( ) Father ( ) Spouse ( ) Daughter ( ) Son ( ) Pharmacy ( ) Other: Provider: Pharmacy: Name of Medications Needing Refill: Last Refill Date: Additional Information: Last / Future Appointment:last saw patient 11-08-14 for left sided facial and left hand numbness Disposition: ( ) Send to Pharmacy ( ) Call to Pharmacy ( ) 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 Script ( ) Mail Rx to Patient Source: [facility] POWERCHART Document Id: [id number] Electronically signed by Gonzalo, [facility] Freight Dispatcher [id number] at 03/19/2017 8:28 PM CDT Telephone Encounter - Conversion, Historical Provider Ser - 09/14/2013 11:06 AM CST Phone Message Document Contains Addenda Addendum by ANDERSON GARDUNO LPN on 14 September 2013 11:46:05 FERRIS WHEEL ATTENDANT notified Addendum by ALINA GONZALEZ MD on 14 September 2013 11:15:09 FERRIS WHEEL ATTENDANT From: ALINA GONZALEZ MD To: ANDERSON GARDUNO LPN; Sent: 09/14/2013 11:15:09 FERRIS WHEEL ATTENDANT Subject: RE: Phone Message needs appt. Have her come in this afternoon. From: ANDERSON GARDUNO LPN To: ALINA GONZALEZ MD; ANDERSON GARDUNO LPN; Sent: 09/14/2013 11:06:59 FERRIS WHEEL ATTENDANT Subject: Phone Message Caller is: ( ) Patient ( ) Mother ( ) Father ( ) Spouse ( ) Daughter ( ) Son ( ) Pharmacy ( ) Other: Physician: Patient MRN #: Reason for Call: phone call from pt having vaginal irritation and whitish vaginal discharge. does not really have any vaginal itching. would like to be teated for vaginitis, rx to [facility] Message: Advice/Action: Source used: ( ) Verbalizes understanding of instructions ( ) Instructed to call back if symptoms worsen or do not resolve ( ) Refused to see provider ( ) Appointment Scheduled ( ) OK to leave message on voice mail ( ) Patient told to expect return call: ( ) today ( ) tomorrow ( ) next work day ( ) Patient's email ( ) Patient told physician out of office, will call upon return call on ( ) ( ) Patient told physician out of office, routed to other physician ( ) Other ( ) Call back telephone number ( ) Call back cell phone number ( ) Source: [facility] POWERCHART Document Id: [id number] Miscellaneous - Conversion, Historical Provider Ser - 05/21/2013 8:39 AM CDT Medication Refill Msg Document Contains Addenda Addendum by ANDERSON GARDUNO LPN on 21 May 2013 09:39:30 CDT notified Addendum by ALINA GONZALEZ MD on 21 May 2013 08:52:16 CDT From: ALINA GONZALEZ MD To: ANDERSON GARDUNO LPN; Sent: 05/21/2013 08:52:16 CDT Subject: RE: Medication Refill Msg done From: ANDERSON GARDUNO LPN To: ALINA GONZALEZ MD; ANDERSON GARDUNO LPN; Sent: 05/21/2013 08:39:06 CDT Subject: Medication Refill Msg Caller is: ( ) Patient ( ) Mother ( ) Father ( ) Spouse ( ) Daughter ( ) Son ( ) Pharmacy ( ) Other: Provider: Pharmacy: [facility] Name of Medications Needing Refill: needs refill of trinesssa Last Refill Date: Additional Information: is out Last / Future Appointment: Disposition: ( ) Send to Pharmacy ( ) Call to Pharmacy ( ) 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 - 05/10/2012 5:57 PM CDT Ambulatory Depart Summary [address] [address] Visit Information Name: ISHAAN SULLIVAN Visit Date: 05/10/2012 17:57:58 Attending Provider: ALINA GONZALEZ MD Primary Care Provider: ALINA GONZALEZ MD ISHAAN SULLIVAN has been given the following list of medications: Your Medications It is important to take your medications as directed. Use a pill box or chart to help remind you to take your medications. Please let your doctor or nurse know if you have problems taking your medications. Medication/Strength Dose Route Frequency Indications/Special Instructions/Comments amoxicillin-clavulanate (Augmentin 500 mg oral tablet) 1 tab(s) Oral three times a day for 7 Days ciprofloxacin-hydrocortisone otic (Cipro HC 0.2%-1% otic suspension) 3 drop(s) Ears (Both) two timesa day for 7 Days norgestimate-ethinyl estradiol (TriNessa oral tablet) 1 tab(s) Oral once a day Attention: If you have any medications at home that are not on this list, DO NOT take them until youcontact your provider for clarification. Additional Information: Source: [facility] elastic.[email or web address] Document Id: [id number] Miscellaneous - Alina Martinez M.D. - 05/10/2012 5:57 PM CDT Ambulatory Patient Summary [address] [address] Visit Information Name: ISHAAN SULLIVAN Current Date: 05/10/2012 17:57:58 Physicians Attending Provider: ALINA GONZALEZ MD Primary Care Provider: ALINA GONZALEZ MD Your Medications Here is a list of your medications. It is important to take your medications as directed. Use a pillbox or chart to help remind you to take your medications. Please let your doctor or nurse know if you have problems taking your medications. Medication/Strength Dose Route Frequency Indications/Special Instructions/Comments amoxicillin-clavulanate (Augmentin 500 mg oral tablet) 1 tab(s) Oral three times a day for 7 Days ciprofloxacin-hydrocortisone otic (Cipro HC 0.2%-1% otic suspension) 3 drop(s) Ears (Both) two timesa day for 7 Days norgestimate-ethinyl estradiol (TriNessa oral tablet) 1 tab(s) Oral once a day Attention: If you have any medications at home that are not on this list, DO NOT take them until youcontact your provider for clarification. Your Allergies & Intolerances Substance Reaction Symptoms Category Comments No Known Allergies Drug Your Problem List Problem Status Onset Comments No current problems or disability Active Your Upcoming Appointments Date Time Location Reason Provider No Appointments found Your Goals/Additional instructions: Source: [facility] POWERCHART Document Id: [id number] Miscellaneous - Conversion, Historical Provider Ser - 05/10/2012 9:55 AM CDT Pediatric Bleach Supervisor Intake/History Pediatric Bleach Supervisor Intake/History Entered On: 05/10/2012 9:59 CDT Performed On: 05/10/2012 9:55 CDT by ANDERSON GARDUNO LPN Intake Chief Complaint : bilateral ear ache Temperature Core : 36.5C(Converted to: 97.7DegF) Peripheral Pulse Rate : 72/min Respiratory Rate : 16/min Systolic Blood Pressure : 100mmHg Diastolic Blood Pressure : 60mmHg NIBP Mean : 73mmHg BP Location : Left upper extremity Blood Pressure Cuff Size : Regular Height : 163cm(Converted to: 5ft 4inch(es), 64.17inch(es)) Actual Weight : 61kg(Converted to: 134lb 8oz) Dosing Weight Clinic : 61.00kg Clinic BSA : 1.66 Body Mass Index : 22.96kg/m2 ANDERSON GARDUNO LPN - 05/10/2012 9:55 CDT Subjective Pain Symptoms : Yes ANDERSON GARDUNO LPN - 05/10/2012 9:55 CDT Pain Pain Assessment Grid Pain 1 Location : Ear Laterality : Bilateral ANDERSON GARDUNO LPN - 05/10/2012 9:55 CDT Dependent Habits Tobacco Use/Currently Using : No Exposure to Tobacco Smoke : Lives with someone who smokes Smoking Status : Never smoker ANDERSON GARDUNO LPN - 05/10/2012 9:55 CDT Tobacco Use Grid Other Tobacco Frequency : non ANDERSON GARDUNO LPN - 05/10/2012 9:55 CDT Caffeine Use Grid Caffeine Use : Current Type : Chocolate, Coffee, Soft drinks Frequency : Daily Amount : 1 cup coffee ANDERSON GARDUNO LPN - 05/10/2012 9:55 CDT Allergy Allergies (Active) NKA Estimated Onset Date: Unspecified ; Created By: ANDERSON GARDUNO LPN; Reaction Status: Active ; Category: Drug ; Substance: NKA ; Type: Allergy ; Updated By: ANDERSON GARDUNO LPN;Reviewed Date: 05/10/2012 9:53 CDT [facility] Document Id: [id number] documented in this encounter Plan of Treatment Not on filedocumented as of this encounter Visit Diagnoses Not on filedocumented in this encounter
--- OUTSIDE RECORDS SUMMARY | 2022-06-01 10:18 | XMS_ITS | Encounter Summary ---
:1995 [address] Organization [facility] Address [address] [place] [address] Care Team Providers Name Role Phone Unavailable Primary Care Provider Unavailable Encounter Details Date Type Department Care Team Description 01/18/2012 Hospital Encounter HX [facility] FAMILYPRA Sherlyn Eaton i, M.D. [address] [place] [address] (Wo rk) Social History Tobacco Use Types Packs/Day Years Used Date Smoking Tobacco: Never Assessed Sex Assigned at Date Recorded Not on file documented as of this encounter Last Filed Vital Signs Vital Sign Reading Time Taken Comments Blood Pressure 108/68 01/18/2012 9:11 AM CDT Pulse 78 01/18/2012 9:11 AM CDT Temperature - - Respiratory Rate 16 01/18/2012 9:11 AM CDT Oxygen Saturation - - Inhaled Oxygen Concentration - - Weight 60.5 kg (133 lb 6.1 oz) 01/18/2012 9:11 AM CDT Height 163 cm (5' 4.17) 01/18/2012 9:11 AM CDT Body Mass Index 22.77 01/18/2012 9:11 AM CDT Body Mass Index Percentile 71.14 % 01/18/2012 9:11 AM CD T Growth Chart: CDC (Girls, 2-20 Years) documented in this encounter Progress Notes Sherlyn Martinez M.D. - 01/18/2012 12:00 AM CDT Addendum Document Contains Addenda REVISION HISTORY 02/22/2012 at 11:04 a.m. - Modification to Physical Exam, SKIN, by Teresa Nicholas. CHIEF COMPLAINT/ REASON FOR VISIT Moles HISTORY OF PRESENT ILLNESS Ishaan is 16 years old. She is seen today with her mother. They are both concerned about two raised moles on her back and flank which have been enlarging. They are irritated by clothing and sometimes become sore. She would like to have them removed to aid in her comfort and make sure there is nothing worrisome about them. CURRENT MEDICATIONS Medications are reviewed and are as outlined in the EMR. VITAL SIGNS HEIGHT: 163 cm WEIGHT: 60.5 kg TEMPERATURE: 36.6 RESPIRATIONS: 16 PULSE: 78 BLOOD PRESSURE: 108/68 PHYSICAL EXAM GENERAL: She is a well-appearing young woman. SKIN: Just above the bra line and immediately to the right of the midline in the mid back is a raised, brown colored nevus approximately 4 mm in diameter. There is a similar appearing nevus approximately 4 millimeters in diameter on the right flank. PROCEDURE After reviewing risks and benefits with patient and mother and obtaining informed consent, the areas are anesthetized with 2% lidocaine with epinephrine. A shave biopsy is performed and Drysol is used for hemostasis at the base. The areas are covered with antibiotic ointment and gauze. IMPRESSION/REPORT/PLAN Two enlarging and irritating skin lesions. These have been removed via shave biopsy and are submitted for pathologic examination. We will follow up per pathology results. Wound instructions are given. She will follow up with any new or worsening difficulties. Jose Signed Sherlyn Gonzalez M.D. Family Medicine Electronically Signed By: SHERLYN GONZALEZ MD On: 02/02/2012 09:16 AM Jose Signed Sherlyn Gonzalez M.D. Family Medicine Electronically Signed By: SHERLYN GONZALEZ MD On: 02/02/2012 09:16 AM Co-Signed By: SHERLYN GONZALEZ MD On: 03/10/2012 01:33 PM Source: [facility] MHSDOLBEYNONRADSYS Document Id: [id number] documented in this encounter Miscellaneous Notes Telephone Encounter - Conversion, Historical Provider Ser - 09/27/2012 1:15 PM CST Phone Message Document Contains Addenda Addendum by LILIANA ESTRADA on 27 September 2012 15:18:53 ETCHER ENAMELING Left message for mom. Addendum by SHERLYN GONZALEZ MD on 27 September 2012 13:59:07 ETCHER ENAMELING From: SHERLYN GONZALEZ MD To: LILIANA ESTRADA; Sent: 09/27/2012 13:59:07 ETCHER ENAMELING Subject: RE: Phone Message It's not unusual to have some spotting ( of dark blood ) the week or so before the period is due. Stress is a possible contributor. I would not be concerned but if it happens again over the nexr coupleof months, I''l see her and we can figure out another plan. From: LILIANA ESTRADA To: SHERLYN GONZALEZ MD; ANDERSON GARDUNO LPN; Sent: 09/27/2012 13:15:02 ETCHER ENAMELING Subject: Phone Message Caller is: ( ) Patient ( Francine ) Mother ( ) Father ( ) Spouse ( ) Daughter ( ) Son ( ) Pharmacy ( ) Other: Physician: Patient MRN #: Reason for Call: Message: Mom called th say that Ishaan is on control and last week she has had some dark blackdischarge. She said it hurts a little bit. Her period is n't supposed to be till next week. What do you recommend, what could it be and should we be worried? Advice/Action: Source used: ( ) Verbalizes understanding [...] back cell phone number ( ) Source: [facility] [employer]oMetabolic SolutionsCHART Document Id: [id number] Nancycellamy - Sherlyn Martinez M.D. - 01/23/2012 4:58 PM CDT Results Notification Document Contains Addenda Addendum by BOB BISWAS on 24 January 2012 09:01:59 CDT Pt. notified. RHONA From: SHERLNY GONZALEZ MD To: ANDERSON GARDUNO LPN Sent: 01/23/2012 16:58:52 CDT ! Show up: 01/23/2012 21:58:52 [facility] Subject: Results Notification Actions: Notify patient of results Source: [facility] [employer]end Document Id: [id number] Andrey - Sherlyn Martinez M.D. - 01/18/2012 9:24 PM CDT Ambulatory Patient Summary [address] [address] Visit Information Name: ISHAAN SULLIVAN Current Date: 01/18/2012 21:24:13 Physicians Attending Provider: SHERLYN GONZALEZ MD Primary Care Provider: SHERLYN GONZALEZ MD Your Medications Here is a list of your medications. It is important to take your medications as directed. Use a pillbox or chart to help remind you to take your medications. Please let your doctor or nurse know if you have problems taking your medications. Medication/Strength Dose Route Frequency Indications/Special Instructions/Comments norgestimate-ethinyl estradiol (TriNessa oral tablet) 1 tab(s) [...] No Appointments found Your Goals/Additional instructions: Source: Lynk Document Id: [id number] Miscellaneous - Sherlyn Martinez M.D. - 01/18/2012 9:24 PM CDT Ambulatory Depart Summary [address] [address] Visit Information Name: ISHAAN SULLIVAN Visit Date: 01/18/2012 21:24:12 Attending Provider: SHERLYN GONZALEZ MD Primary Care Provider: SHERLYN GONZALEZ MD ISHAAN SULLIVAN has been given the following list of medications: Your Medications It is important to take your medications as directed. Use a pill box or chart to help remind you to take your medications. Please let your doctor or nurse know if you have problems taking your medications. Medication/Strength Dose Route Frequency Indications/Special Instructions/Comments norgestimate-ethinyl estradiol (TriNessa oral tablet) 1 tab(s) Oral once a day Attention: If you have any medications at home that are not on this list, DO NOT take them until youcontact your provider for clarification. Additional Information: Source: [facility] Document Id: [id number] Miscellaneous - Neymar Beebe, L.P.N. - 01/18/2012 9:11 AM CDT Pediatric Adult Education Teacher Intake/History Pediatric Adult Education Teacher Intake/History Entered On: 01/18/2012 9:16 CDT Performed On: 01/18/2012 9:11 CDT by NEYMAR BEEBE Intake Chief Complaint : mole removal- 2 Temperature Core : 36.6C(Converted to: 97.9DegF) Peripheral Pulse Rate : 78/min Respiratory Rate : 16/min Heart Rhythm : Regular Systolic Blood Pressure : 108mmHg Diastolic Blood Pressure : 68mmHg NIBP Mean : 81mmHg BP Location : Right upper extremity Blood Pressure Cuff Size : Regular Height : 163cm(Converted to: 5ft 4inch(es), 64.17inch(es)) Actual Weight : 60.5kg(Converted to: 133lb 6oz) Weight Source : Standing scale Dosing Weight Clinic : 60.50kg Clinic BSA : 1.66 Body Mass Index : 22.77kg/m2 NEYMAR BEEBE - 01/18/2012 9:11 CDT Subjective Pain Symptoms : No NEYMAR BEEBE - 01/18/2012 9:11 CDT Dependent Habits Tobacco Use/Currently Using : No Exposure to Tobacco Smoke : Lives with someone who smokes Smoking Status : Never smoker NEYMAR BEEBE - 01/18/2012 9:11 CDT Tobacco Use Grid Other Tobacco Frequency : non NEYMAR BEEBE - 01/18/2012 9:11 CDT Caffeine Use Grid Caffeine Use : Current Type : Chocolate, Coffee, Soft drinks Frequency : Daily Amount : 1 cup coffee NEYMAR BEEBE - 01/18/2012 9:11 CDT Allergy Allergies (Active) NKA Estimated Onset Date: Unspecified ; Created By: ANDERSON GARDUNO LPN; Reaction Status: Active ; Category: Drug ; Substance: NKA ; Type: Allergy ; Updated By: ANDERSON GARDUNO LPN;Reviewed Date: 01/18/2012 9:10 CDT Source: [email or web address] POWERCHART Document Id: [id number] CDT!33 documented in this encounter Plan of Treatment Not on filedocumented as of this encounter Procedures Procedure Name Priority Date/Time Associated Comments Diagnosis DERMATOPATHOLOGY CONSULT Routine 01/18/2012 1:20 Results for this PM CDT procedure are i n the results section. LAB SURG PATH,LEVEL IV Routine 01/18/2012 1:20 Re sults for this PRO AND TECH PM CDT procedure are i n the results section. documented in this encounter Results LAB SURG PATH,LEVEL IV PRO AND TECH (01/18/2012 1:20 PM CDT) Analysis Performed At Patho logist Time Signature HXLvl IV Surg Performed POWERCHART [facility] Comment: Test Performed by: [facility] Dpt of Lab Med and Pathology [address] [place] [address] Roentgenology Teacher: Josemanuel foote III, M.D. Specimen Anatomical Collection Method Collection Time Receive d Time (Source) Location / / Volume Laterality Tissue 01/18/2012 1:20 PM 2 6:42 CDT AM CDT Historical Provider CHG LABORATORY Performing Organization Address City/State/ZIP Code Phon e Number POWERCHART PATHOLOGY DERMPATH CONSULT, WET TISSUE (01/18/2012 1:20 PM CDT) [facility] Time Signature HXDrm Exam [id number] POWERCHART [facility] HXDrm Exam See Comment POWERCHART [facility] Comment: RESULT: Sherlyn Gonzalez M.D. HXDrm Exam Addr-[place] See Comment POWERCH ART Comment: [facility] [place] [address] [place] [address] Fax HXDrm Exam Site-[place] See Comment POWERCH ART Comment: A. ?? Received in formalin, labeled with the patient's name and and lab eled as right flank is a 0.4 x 0.4 x 0.2 cm skin shave biopsy. ?? There is a brown raised verrucoid lesion encompassing the entire skin surface. ??The specimen is bisected and submitted entirely in ca ssette A1. B. ?? Received in formalin, labeled with the patient's name and and lab eled as mid back is a 0.6 x 0.4 x 0.3 cm skin shave biopsy. ??Invo lving the entire skin surface is a raised pale smith-brown polypoid lesi on. ??The specimen is bisected and submitted entirely in casse tte B1. HXDrm Exam [facility] See Comment POWERCH ART Comment: A. ??Right flank mole, Skin: ??Compound nevus with congenital features B. ??Mid back, Skin: ??Compound nevus HXDrm Exam Sign-[place] See Comment POWERCH ART Comment: RESULT: 01/21/2012 12:35 ??Interpreted by: Shantel Rose M.D Report electronically signed by Shantel Rose M.D. Transcribed by: [email or web address] 01/21/2012 11:23:08 Test Performed by: [facility] Dpt of Lab Med and Pathology [address] [place] [address] Roentgenology Teacher: Josemanuel foote III, M.D. Specimen (Source) Anatomical Collection Method Collection Time Re ceived Time Location / / Volume Laterality Tissue 01/18/2012 1:20 PM CDT Sherlyn Morales M.D. LAB PATH DERM ORDERABL ES Performing Organization Address City/State/ZIP Code Phon e Number POWERCHART documented in this encounter Visit Diagnoses Not on filedocumented in this encounter
--- OUTSIDE RECORDS SUMMARY | 2022-06-01 10:18 | XMS_ITS | Encounter Summary ---
:1995 Author Organization [facility] Address [address] [place] [address] Care Team Providers Name Role Phone Unavailable Primary Care Provider Unavailable Encounter Details Date Type Department Care Team Description 11/08/[address] [facility] FB FAMILYPRA Alina Eaton i, M.D. [address] [place] [address] (Wo rk) Social History Tobacco Use Types Packs/Day Years Used Date Smoking Tobacco: Never Assessed Sex Assigned at Date Recorded Not on file documented as of this encounter Last Filed Vital Signs Vital Sign Reading Time Taken Comments Blood Pressure 120/70 11/08/2014 2:24 PM MOBILE APPLICATION ENGINEER Pulse 84 11/08/2014 2:24 PM MOBILE APPLICATION ENGINEER Temperature - - Respiratory Rate 16 11/08/2014 2:24 PM MOBILE APPLICATION ENGINEER Oxygen Saturation - - Inhaled Oxygen Concentration - - Weight 72 kg (158 lb 11.7 oz) 11/08/2014 2:24 PM MOBILE APPLICATION ENGINEER Height 163 cm (5' 4.17) 11/08/2014 2:24 PM MOBILE APPLICATION ENGINEER Body Mass Index 27.1 11/08/2014 2:24 PM MOBILE APPLICATION ENGINEER documented in this encounter Progress Notes Alina Martinez M.D. - 11/08/2014 2:01 PM CST [id number] CHIEF COMPLAINT/ REASON FOR VISIT Left-sided facial and left hand numbness. HISTORY OF PRESENT ILLNESS Ishaan is a 19 year old female who presents to the clinic today for numbness on the left side of herface and left hand. Ishaan has been having infrequent episodes of numbness in her left hand and the left side of her face over the past month. During these episodes she is able to move her hand but cannot feel her hand. While experiencing the numbness, a migraine sets in with a pounding sensation. As the numbness fades the migraine fades with it. After the numbness and headache Ishaan reports having a hot flash. She has been waking up with headaches. She denies a history of migraines and head injury. Her father has a history of having problems with his thyroid so she would like to have her thyroid checked today. Ishaan mother has a history of migraines. The patient denies any additional questions or concerns at this time. MEDICATIONS Post-visit Medication Reconciliation Reviewed and are as outlined in the EMR dated 11/10/2014. ALLERGIES No known drug allergies. SYSTEMS REVIEW See HPI. PAST MEDICAL/SURGICAL HISTORY 1. None. PREVENTIVE SERVICES Tobacco use: none. VITAL SIGNS HEIGHT: 163 cm. WEIGHT: 72 kg. BMI: 27.1 kg/m2. TEMP: 36.8 Deg C. PULSE: 84 /min. RESP: 16 /min. SYSTOLIC: 120 mmHg. DIASTOLIC: 70 mmHg. PHYSICAL EXAMINATION GENERAL: Patient is alert and oriented times three, in no acute distress, good hygiene and is dressed appropriately. ENT: Tympanic membranes are normal bilaterally. Oropharynx is without erythema or exudate. Nasal mucosa is without injection. Neck is without adenopathy. EYES: LYMPH NODES: Not palpably enlarged and no nodules are palpated. HEART: Regular rate and rhythm without murmur. LUNGS: Clear to auscultation. ABDOMEN: Soft and nontender with no masses. EXTREMITIES: Within normal limits. IMPRESSION/REPORT/PLAN 1. Episode of paraesthesia associated with headache likely migraine with aura. A CBC with diff, thyroid screening, and a BMP were ordered today. Patient will be notified of the results. 2. Follow up: The patient will contact the clinic with any new or worsening symptoms. This document serves as a record of services personally performed by Alina Becker MD. It was created on their behalf by Meghana Mtz, a trained biomedical equipment specialist. The creation of this record is based on the scribe's personal observations and the provider's statements to them. This document has been eze cked and approved by the attending provider. Alina Gautam M.D./shahid Electronically Signed By: ALINA MRATINEZ MD On: 12/01/2014 08:29 PM Source: [facility] MHSDOLBEYNONRADSYS Document Id: [id number] LE APPLICATION ENGINEER documented in this encounter Miscellaneous Notes Miscellaneous - Nitin Avendano, RCatN. - 10/25/2016 11:15 AM CST jesus manuel alejandros From: NITIN AVENDANO RN To: ALINA MARTINEZ MD; Sent: 10/25/2016 11:15:47 MOBILE APPLICATION ENGINEER Subject: trinessa tabs Caller is: ( ) Patient ( ) Mother ( ) Father ( ) Spouse ( ) Daughter ( ) Son ( ) Pharmacy ( ) Other: [facility] Name of Medications Needing Refill: trinessa 0.18/0.215/0.25 tabs- one tab po every day Last Refill Date: 08-08-16 #84 Additional Information: Last / Future Appointment: you last saw 11-08-14, did see moed on 09-22-15 Disposition: ( ) Send to Pharmacy ( ) Call to Pharmacy ( ) Patient will pickle processor Script ( ) Mail Rx to Patient Source: [facility] POWERCHART Document Id: [id number] Miscellaneous - Alina Martinez M.D. - 11/13/2014 10:10 PM MOBILE APPLICATION ENGINEER Normal Results Letter 13 November 2014 ISHAAN SULLIVAN [address] [id number] Dear ISHAAN SULLIVAN, I am pleased to report that your results from the following diagnostic test(s) are normal. Please follow up with us as we discussed during your visit or sooner if you have any concerns. If you have questions or concerns, please do not hesitate to call our office. Result Name Current Result Normal Range Sodium Lvl (mmol/L) 141 11/08/2014 135 - 145 Potassium Lvl (mmol/L) 4.2 11/08/2014 3.5 - 4.8 Chloride (mmol/L) 101 11/08/2014 100 - 108 CO2 (mmol/L) 29 11/08/2014 22 - 30 Glucose Lvl 92 11/08/2014 Creatinine (mg/dL) 0.8 11/08/2014 0.7 - 1.2 EGFR (MDRD) (mL/min) >60 11/08/2014 EGFR (MDRD) (mL/min/1.73m2) >60 11/08/2014 >=60 - BUN (mg/dL) 10 11/08/2014 6 - 20 Calcium Lvl (mg/dL) 9.9 11/08/2014 8.5 - 10.5 TSH (mIU/L) 1.08 11/08/2014 0.27 - 4.20 Hgb (g/dL) 12.7 11/08/2014 12.0 - 15.5 Hct (%) 37.5 11/08/2014 34.9 - 44.5 WBC (x10(9)/L) 5.7 11/08/2014 3.4 - 10.5 RBC (x10(12)/L) 4.41 11/08/2014 3.90 - 5.03 MCV (fL) 85.0 11/08/2014 82.0 - 98.0 RDW (%) 12.6 11/08/2014 11.9 - 15.5 Platelet (x10(9)/L) 283 11/08/2014 150 - 450 Neutro Absolute (10(9)/L) 3.92 11/08/2014 1.70 - 7.00 Lymph Absolute (x10(9)/L) 1.35 11/08/2014 0.90 - 2.90 [place] Absolute (x10(9)/L) 0.36 11/08/2014 0.30 - 0.90 Eos Absolute (x10(9)/L) 320(L) 0.02 11/08/2014 0.05 - 0.50 Baso Absolute (x10(9)/L) 0.03 11/08/2014 0.00 - 0.30 Differential? Auto 11/08/2014 Sincerely, ALINA GAUTAM [address] [place] [address] Electronic Signature Electronically Signed By: ALINA MARTINEZ MD On: 13 November 2014 This document has images extracted. Source: [facility] POWERCHART Document Id: [id number] Electronically signed by Conversion, [facility] Enchilada Maker [id number] at 03/13/2017 2:04 PM CDT Miscellaneous - Conversion, Historical Provider Ser - 11/08/2014 2:24 PM MOBILE APPLICATION ENGINEER Adult Story Teller Intake/History Adult Story Teller Intake/History Entered On: 11/08/2014 14:28 MOBILE APPLICATION ENGINEER Performed On: 11/08/2014 14:24 MOBILE APPLICATION ENGINEER by ANDERSON GARDUNO LPN Intake Chief Complaint : left sided numbness face and hand Temperature Core : 36.8 DegC(Converted to: 98.2 DegF) Peripheral Pulse Rate : 84 /min Respiratory Rate : 16 /min Systolic Blood Pressure : 120 mmHg Diastolic Blood Pressure : 70 mmHg NIBP Mean : 87 mmHg BP Location : Left upper extremity Blood Pressure Cuff Size : Regular Height : 163 cm(Converted to: 5 ft 4 inch(es), 64 inch(es)) Actual Weight : 72 kg(Converted to: 158 lb 12 oz) Dosing Weight Clinic : 72 kg Clinic BSA : 1.81 Body Mass Index : 27.1 kg/m2 ANDERSON GARDUNO LPN - 11/08/2014 14:24 MOBILE APPLICATION ENGINEER General Info Information Given By : Patient Languages : Icelandic Is Patient Female and 13-50 no hysterectomy : Yes Status : Patient denies Are you ? : No ANDERSON GARDUNO LPN - 11/08/2014 14:24 MOBILE APPLICATION ENGINEER Subjective Pain Symptoms : Yes ANDERSON GARDUNO LPN - 11/08/2014 14:24 MOBILE APPLICATION ENGINEER Pain Scale Pain Scale Verbal 0-10 : Open ANDERSON GARDUNO LPN - 11/08/2014 14:24 MOBILE APPLICATION ENGINEER Pain Pain Assessment Grid Pain 1 Location : Head ANDERSON GARDUNO LPN - 11/08/2014 14:24 MOBILE APPLICATION ENGINEER Dependent Habits Tobacco Use/Currently Using : No Exposure to Tobacco Smoke : Lives with someone who smokes Smoking Status : Never smoker ANDERSON GARDUNO [facility] - 11/08/2014 14:24 MOBILE APPLICATION ENGINEER Tobacco Use Grid Other Tobacco Frequency : non ANDERSON GARDUNO [facility] - 11/08/2014 14:24 MOBILE APPLICATION ENGINEER Caffeine Use Grid Caffeine Use : Current Type : Chocolate, Coffee, Soft drinks Frequency : Daily Amount : 1 cup coffee ANDERSON GARDUNO [facility] - 11/08/2014 14:24 MOBILE APPLICATION ENGINEER ID Screen Travel Within Last 21 Days : No ANDERSON GARDUNO [facility] - 11/08/2014 14:24 MOBILE APPLICATION ENGINEER [facility] Document Id: [id number] MOBILE APPLICATION ENGINEER!45 documented in this encounter Plan of Treatment Not on filedocumented as of this encounter Procedures Procedure Name Priority Date/Time Associated Diagnosis Comme nts AUTOMATED Routine 11/08/2014 3:21 PM Results f or this DIFFERENTIAL, B MOBILE APPLICATION ENGINEER procedure ar e in the results section. CBC WITH Routine 11/08/2014 3:21 PM Results f or this DIFFERENTIAL, B MOBILE APPLICATION ENGINEER procedure ar e in the results section. THYROID-STIMULATING Routine 11/08/2014 3:21 PM Re sults for this HORMONE-SENSITIVE MOBILE APPLICATION ENGINEER procedure are in (S-TSH) the results section. BASIC METABOLIC Routine 11/08/2014 3:21 PM Result s for this PANEL, S/P MOBILE APPLICATION ENGINEER procedure are i n the results section. documented in this encounter Results (ABNORMAL) Automated Differential (11/08/2014 3:21 PM MOBILE APPLICATION ENGINEER) [facility] gist Method Time Signature Absolute 3.92 1.70 - POWERCHART Neutrophils 7.00 109L Lymphocytes 1.35 0.90 - POWERCHART 2.90 X109L Monocytes 0.36 0.30 - POWERCHART 0.90 X109L Eosinophils 0.02 (L) 0.05 - POWERCHART 0.50 X109L Absolute 0.03 0.00 - POWERCHART Basophil 0.30 X109L Specimen Anatomical Collection Method Collection Time Receive d Time (Source) Location / / Volume Laterality Blood 11/08/2014 3:21 PM 5 3:21 MOBILE APPLICATION ENGINEER PM MOBILE APPLICATION ENGINEER Alina Morales M.D. LAB BLOOD ADD-ON Performing Organization Address City/State/ZIP Code Phon e Number POWERCHART CBC with Differential (11/08/2014 3:21 PM MOBILE APPLICATION ENGINEER) P athologist Signature Leukocytes 5.7 3.4 - 10.5 POWERCHART X109L Erythrocytes 4.41 3.90 - POWERCHART 5.03 [id number] Hemoglobin 12.7 12.0 - POWERCHART 15.5 GDL Hematocrit 37.5 34.9 - POWERCHART 44.5 MCV 85.0 82.0 - POWERCHART 98.0 FL Platelet Count 283 150 - 450 POWERCHART X109L HX RDW 12.6 11.9 - POWERCHART 15.5 HXDifferential? Auto POWERCHART Specimen (Source) Anatomical Collection Method Collection Time Re ceived Time Location / / Volume Laterality Blood 11/08/2014 3:21 PM MOBILE APPLICATION ENGINEER Alina Morales M.D. LAB BLOOD ADD-ON Performing Organization Address City/State/ZIP Code Phon e Number POWERCHART Thyroid-Stimulating Hormone-Sensitive (s-TSH) (11/08/2014 3:21 PM MOBILE APPLICATION ENGINEER) athologist Signature TSH 1.08 0.27 - 4.20 POWERCHART (Thyrotropin) MIUL Specimen (Source) Anatomical Collection Method Collection Time Re ceived Time Location / / Volume Laterality Blood 11/08/2014 3:21 PM MOBILE APPLICATION ENGINEER Alina Morales M.D. LAB BLOOD ADD-ON Performing Organization Address City/State/ZIP Code Phon e Number POWERCHART BMP (Basic Metabolic Panel) (11/08/2014 3:21 PM MOBILE APPLICATION ENGINEER) P athologist Signature BUN (Blood Urea 10 6 - 20 MGDL POWERCHART Nitrogen), S Creatinine, S 0.8 0.7 - 1.2 POWERCHART MGDL Glucose 92 POWERCHART Potassium, S 4.2 3.5 - 4.8 POWERCHART MMOLL Sodium, S 141 135 - 145 POWERCHART MMOLL Chloride, S 101 100 - 108 POWERCHART MMOLL CO2 Total 29 22 - 30 POWERCHART MMOLL Calcium, Total, 9.9 8.5 - 10.5 POWERCHART S MGDL HXeGFR (MDRD) >60 MLMIN POWERCHART eGFR >60 >=60 POWERCHART Black/ [id number] [place] Specimen (Source) Anatomical Collection Method Collection Time Re ceived Time Location / / Volume Laterality Blood 11/08/2014 3:21 PM MOBILE APPLICATION ENGINEER Alina Morales M.D. LAB BLOOD ADD-ON Performing Organization Address City/State/ZIP Code Phon e Number POWERCHART documented in this encounter Visit Diagnoses Not on filedocumented in this encounter
--- OUTSIDE RECORDS SUMMARY | 2022-06-01 10:18 | XMS_ITS | Encounter Summary ---
:1995 Author Organization [facility] Address [address] [place] [address] Care Team Providers Name Role Phone Unavailable Primary Care Provider Unavailable Encounter Details Date Type Department Care Team Description 11/03/2010 Hospital Encounter HX [facility] Sherlyn Eaton i, M.D. [address] [place] [address] (Wo rk) Social History Tobacco Use Types Packs/Day Years Used Date Smoking Tobacco: Never Assessed Sex Assigned at Date Recorded Not on file documented as of this encounter Progress Notes Sherlyn Martinez M.D. - 11/03/2010 12:00 AM CST [id number] IMPRESSION/REPORT/PLAN Irregular menstrual flow. We will check her CBC and TSH today to search for reversible causes. She would like to be started on the control pill and a prescription for TriNessa is given. She will update me in one month. CHIEF COMPLAINT/REASON FOR VISIT Irregular menstrual flow HISTORY OF PRESENT ILLNESS Ishaan is 15 years old. She recalls having her first period while in the 8th grade. She has actually been quite regular since that time, having periods that generally come once a month. This was the case until March 2010 when she started having more irregularity. She had a regular period in March, but skipped the whole month of April and of May. In June she had two periods that were mostly brown discharge. In July she had a period that lasted 11 days that was light brown and crampy. In August she had cramps but no flow. In September and now October she has had no flow. She finds the absence of menstrual flow uncomfortable and unnerving, although she absolutely denies having any sexual activity. CURRENT MEDICATIONS Post-visit Medication Reconciliation Medications are reviewed with the patient and are as outlined in the EMR including the addition of TriNessa oral contraceptive. VITAL SIGNS DATE/TIME 11/03/2010 HEIGHT 163 cm WEIGHT 62.5 kg TEMPERATURE 36.6 degreesC PULSE 80 SYSTOLIC 120 DIASTOLIC 68 PHYSICAL EXAM AREA EXAM TEXT GENERAL She does not appear ill or uncomfortable. LYMPH NODES Her neck is without adenopathy. HEART Heart is regular rate and rhythm. LUNGS Lungs are clear to auscultation. ABDOMEN Abdomen is soft with no tenderness or masses. JLF/glt Signed Sherlyn Gonzalez M.D. Family Medicine Electronically Signed By:SHERLYN GONZALEZ MD On 11/16/2010 09:46 AM Source: [facility] MHSDOLBEYNONRADSYS Document Id: [id number] CY CHANGE CLERK documented in this encounter Miscellaneous Notes Miscellaneous - Sherlyn Martinez M.D. - 11/04/2010 6:18 PM POLICY CHANGE CLERK Reminder Msg Document Contains Addenda Addendum by LILIANA ESTRADA on 05 November 2010 14:58:38 POLICY CHANGE CLERK mailed to patient. From: SHERLYN GONZALEZ MD To: ANDERSON GARDUNO LPN Sent: 11/04/2010 18:18:06 POLICY CHANGE CLERK ! Show up: 11/04/2010 18:17:00 POLICY CHANGE CLERK Subject: Reminder Msg Actions: Notify patient of results Due Date/Time: 11/04/2010 18:17:00 POLICY CHANGE CLERK Source: [facility] POWERCHART Document Id: [id number] Electronically signed by Gonzalo [facility] [employer] [employer] Entertainer [id number] at 03/20/2017 9:34 AM CDT Miscellaneous - Conversion, Historical Provider Ser - 11/03/2010 10:25 AM POLICY CHANGE CLERK Pediatric Truck Loader And Unloader Intake/History Pediatric Truck Loader And Unloader Intake/History Entered On: 11/03/2010 10:28 POLICY CHANGE CLERK Performed On: 11/03/2010 10:25 POLICY CHANGE CLERK by ANDERSON GARDUNO LPN Intake Chief Complaint: amenorrhea LMP Date: 08/05/10 Temperature Core: 36.6C(Converted to: 97.9DegF) Peripheral Pulse Rate: 80/min Systolic Blood Pressure: 120mmHg Diastolic Blood Pressure: 68mmHg NIBP Mean: 85mmHg BP Location: Right upper extremity Height: 163.00cm(Converted to: 5ft 4in, 64.17in) Actual Weight: 62.500kg(Converted to: 137lb 13oz) Dosing Weight Clinic: 62.50kg Clinic BSA: 1.68 Body Mass Index: 24kg/m2 ANDERSON GARDUNO LPN - 11/03/2010 10:25 POLICY CHANGE CLERK Subjective Pain Symptoms: No ANDERSON GARDUNO LPN - 11/03/2010 10:25 POLICY CHANGE CLERK Dependent Habits Tobacco Use/Currently Using: No ANDERSON GARDUNO LPN - 11/03/2010 10:25 POLICY CHANGE CLERK Tobacco Use Grid Other Tobacco Frequency: non ANDERSON GARDUNO LPN - 11/03/2010 10:25 POLICY CHANGE CLERK Allergy Allergies (Active) NKA Estimated Onset Date: Unspecified ; Created By: ANDERSON GARDUNO LPN; Reaction Status: Active ; Category: Drug ; Substance: NKA ; Type: Allergy ; Updated By: ANDERSON GARDUNO LPN;Reviewed Date: 06/12/2010 12:31 CDT Source: [facility] POWERCHART Document Id: [id number] POLICY CHANGE CLERK!22 documented in this encounter Plan of Treatment Not on filedocumented as of this encounter Visit Diagnoses Not on filedocumented in this encounter
--- OUTSIDE RECORDS SUMMARY | 2022-06-01 10:18 | XMS_ITS | Encounter Summary ---
:[address] [facility] Address [address] [place] [address] Care Team Providers Name Role Phone Unavailable Primary Care Provider Unavailable Encounter Details Date Type Department Care Team Description 09/14/2013 Hospital Encounter HX [facility] FAMILYPR[facility] Sherlyn Eaton i, M.D. [address] [place] [address] (Wo rk) Social History Tobacco Use Types Packs/Day Years Used Date Smoking Tobacco: Never Assessed Sex Assigned at Date Recorded Not on file documented as of this encounter Last Filed Vital Signs Vital Sign Reading Time Taken Comments Blood Pressure 118/72 09/14/2013 1:35 PM WATER ANALYST Pulse 64 09/14/2013 1:35 PM WATER ANALYST Temperature - - Respiratory Rate 16 09/14/2013 1:35 PM WATER ANALYST Oxygen Saturation - - Inhaled Oxygen Concentration - - Weight 67 kg (147 lb 11.3 oz) 09/14/2013 1:35 PM WATER ANALYST Height 162 cm (5' 3.78) 09/14/2013 1:35 PM WATER ANALYST Body Mass Index 25.53 09/14/2013 1:35 PM WATER ANALYST Body Mass Index Percentile 83.71 % 09/14/2013 1:35 PM CS T Growth Chart: CDC (Girls, 2-20 Years) documented in this encounter Progress Notes Sherlyn Solsi M.D. - 09/14/2013 1:23 PM CST [id number] CHIEF COMPLAINT/ REASON FOR VISIT Vaginal irritation. HISTORY OF PRESENT ILLNESS Ishaan is an 18 year old female who presents to the clinic today with vaginal irritation. She has had perineal and vaginal discomfort for the past week. No unusual vaginal discharge, although the discharge she does have may be somewhat more odorous than usual. She hasn't noticed any sores. She is sexually active and uses condoms as well as oral contraceptives for control. The patient denies anyadditional questions or concerns at this time. MEDICATIONS Post-visit Medication Reconciliation Reviewed and are as outlined in the EMR including 1. Metronidazole 500mg twice daily for 7 days, prescribed today. ALLERGIES No known allergies. SYSTEMS REVIEW See HPI. PAST MEDICAL/SURGICAL HISTORY None. PREVENTIVE SERVICES: Tobacco use: None. VITAL SIGNS HEIGHT: 162 cm WEIGHT: 67 kg BMI: 25.53 kg/m2 TEMPERATURE: 36.9 DegC PULSE: 64 /min RESPIRATORY RATE: 16 /min BLOOD PRESSURE: 118 mmHg/72 mmHg PHYSICAL EXAMINATION GENERAL: Patient is alert and oriented times three, in no acute distress, good hygiene and is dressed appropriately. GENITALIA: External genitalia without lesions. There is increased erythema at the introitus. There is a creamy white discharge, slightly bubbly. Cervix is normal in appearance. DIAGNOSTICS Wet prep shows positive clue cells. IMPRESSION/REPORT/PLAN 1. Bacterial vaginosis: Metronidazole 500mg twice daily is prescribed. LCR and herpes PCR are pending. 2. Follow up: The patient will contact the clinic with any new or worsening symptoms. This document serves as a record of services personally performed by Sherlyn Becker MD. It was created on their behalf by Gin Sweet, a trained center medical and lab director. The creation of this record is based on the scribe's personal observations and the provider's statements to them. This document has been eze cked and approved by the attending provider. Sherlyn Becker M.D./bambi Electronically Signed By: SHERLYN BECKER MD On: 10/14/2013 11:29 AM Source: [facility] MHSDOLBEYNONRADSYS Document Id: [id number] R ANALYST documented in this encounter Miscellaneous Notes Miscellaneous - Gwen Avina R.N. - 10/27/2016 9:54 AM CST trinessa Document Contains Addenda Addendum by SHERLYN SOLIS MD on October 27, 2016 21:34:00 WATER ANALYST From: SHERLYN SOLIS MD To: GWEN AVINA RN; Sent: 10/27/2016 21:34:00 WATER ANALYST Subject: RE: trinessa sent From: GWEN AVINA RN To: SHERLYN SOLIS MD; Sent: 10/27/2016 09:54:37 WATER ANALYST Subject: trinessa Caller is: ( ) Patient ( ) Mother ( ) Father ( ) Spouse ( ) Daughter ( ) Son ( ) Pharmacy ( ) Other: Provider: Pharmacy: [facility] Name of Medications Needing Refill: trinessa 0.18/0.215/0.25 tabs- one tab po every day Last Refill Date:08-08-16 #84 Additional Information: Last / Future Appointment: Disposition: ( ) Send to Pharmacy ( ) Call to Pharmacy ( ) Patient will supervisor opening and picking Script ( ) Mail Rx to Patient Source: [facility] POWERCHART Document Id: [id number] Electronically signed by Conversion, [facility] Stitcher Tape Controlled Machine [id number] at 03/16/2017 4:56 PM CDT Miscellaneous - Conversion, Historical Provider Ser - 05/20/2014 12:45 PM CDT *Medication Refill Msg Document Contains Addenda Addendum by ANDERSON GARDUNO LPN on 23 May 2014 09:06:06 CDT pt notified Addendum by SHERLYN BECKER MD on 22 May 2014 15:01:27 CDT From: SHERLYN BECKER MD To: ANDERSON GARDUNO LPN; Sent: 05/22/2014 15:01:27 CDT Subject: RE: *Medication Refill Msg I fixed it th anks. Addendum by ANDERSON GARDUNO LPN on 21 May 2014 13:44:35 CDT From: ANDERSON GARDUNO LPN To: SHERLYN BECKER MD; Sent: 05/21/2014 13:44:35 CDT Subject: FW: *Medication Refill Msg im not sure but it looks like you did one month with 3 refills? Addendum by SHERLYN BECKER MD on 20 May 2014 21:18:53 CDT From: SHERLYN BECKER MD To: ANDERSON GARDUNO LPN; Sent: 05/20/2014 21:18:53 CDT Subject: RE: *Medication Refill Msg ok Addendum by ANDERSON GARDUNO LPN on 20 May 2014 12:46:09 CDT said last refill was for only 2 months From: ANDERSON GARDUNO LPN To: SHERLYN BECKER MD; ANDERSON GARDUNO LPN; Sent: 05/20/2014 12:45:35 CDT Subject: *Medication Refill Msg Caller is: ( ) Patient ( ) Mother ( ) Father ( ) Spouse ( ) Daughter ( ) Son ( ) Pharmacy ( ) Other: Provider: Pharmacy: [facility] Name of Medications Needing Refill: trinessa Last Refill Date: Additional Information: pt wants 3 month supply with refills for a year Last / Future Appointment: Disposition: ( ) Send to Pharmacy ( ) Call to Pharmacy ( ) Patient will supervisor opening and picking Script ( ) Mail Rx to Patient Source: [facility] POWERCHART Document Id: [id number] Telephone Encounter - Conversion, Historical Provider Ser - 10/03/2013 9:10 AM CST Phone Message Document Contains Addenda Addendum by ANDERSON GARDUNO LPN on 04 October 2013 08:40:49 WATER ANALYST notified Addendum by ALEXANDER SALAMANCA LPN on 03 October 2013 16:57:02 WATER ANALYST From: ALEXANDER SALAMANCA LPN To: SHERLYN BECKER MD; Sent: 10/03/2013 16:57:02 WATER ANALYST Subject: RE: Phone Message I left a message for Ishaan to call back to let you know what her symptoms are, is it pain vaginally, a UTI, or cramping. I left the message that a script had been called in and she would need to be seen if things did not get better. Addendum by SHERLYN BECKER MD on 03 October 2013 16:34:06 WATER ANALYST From: SHERLYN BECKER MD To: ANDERSON GARDUNO LPN; ALEXANDER SALAMANCA LPN; Sent: 10/03/2013 16:34:06 WATER ANALYST Subject: RE: Phone Message I sent another rx for flagyl. If she is having symptoms other than last time, she may need further evaluation. Addendum by ANDERSON GARDUNO LPN on 03 October 2013 12:08:49 WATER ANALYST From: ANDERSON GARDUNO LPN To: SHERLYN BECKER MD; Sent: 10/03/2013 12:08:49 WATER ANALYST Subject: FW: Phone Message pt responded not really . and not right now. and that she has been wearing pads. Addendum by SHERLYN BECKER MD on 03 October 2013 09:12:36 WATER ANALYST From: SHERLYN BECKER MD To: ANDERSON GARDUNO LPN; Sent: 10/03/2013 09:12:36 WATER ANALYST Subject: RE: Phone Message Vaginal irritation or cramping or...? Did the flagyl help last time? From: ANDERSON GARDUNO LPN To: SHERLYN BECKER MD; ANDERSON GARDUNO LPN; Sent: 10/03/2013 09:10:20 WATER ANALYST Subject: Phone Message Caller is: ( ) Patient ( ) Mother ( ) Father ( ) Spouse ( ) Daughter ( ) Son ( ) Pharmacy ( ) Other: Physician: Patient MRN #: Reason for Call: phone call from pt stating that she got her period and is getting sx it is hurtingagain, not as bad but starting and wondering what to do again? Message: Advice/Action: Source used: ( ) Verbalizes [...] back cell phone number ( ) [facility] Document Id: [id number] Miscellaneous - Sherlyn Solis M.D. - 09/23/2013 11:53 PM WATER ANALYST Custom Result Letter 23 September 2013 ISHAAN SULLIVAN [facility] [id number] Dear ISHAAN SULLIVAN, Testing for herpes and chlamydia is negative Result Name Current Result Normal Range HSV PCR [facility] cervical 09/14/2013 HSV 1 PCR-[place] Negative 09/14/2013 Negative - HSV 2 PCR-[place] Negative 09/14/2013 Negative - C trach Amp [facility] endocervical 09/14/2013 C trach Amp RNA-[place] Negative 09/14/2013 Negative - Sincerely, SHERLYN BECKER [address] [place], [place] [id number] Electronic Signature Electronically Signed By: SHERLYN BECKER MD On: 23 September 2013 This document has images extracted. Source: [facility] POWERCHART Document Id: [id number] Electronically signed by Gonzalo, [facility] Stitcher Tape Controlled Machine [id number] at 03/16/2017 4:56 PM CDT Miscellaneous - Sherlyn Solis M.D. - 09/14/2013 2:23 PM WATER ANALYST Ambulatory Patient Summary [address] [place] [address] Visit Information Name: ISHAAN SULLIVAN [facility] Number: [id number] Current Date: 09/14/2013 14:23:16 Physicians Attending Provider: SHERLYN BECKER MD Primary Care Provider: SHERLYN BECKER MD ISHAAN SULLIVAN has been given the [...] Take Indications/Special Instructions/Comments/Notes for Patient Medication Changes/Routing metroNIDAZOLE (metroNIDAZOLE 500 mg oral tablet) 1 Tablet(s), Oral, two times a day x 7 day(s) New Routed to [facility] [place] [address] norgestimate-ethinyl estradiol (TriNessa oral tablet) 1 Tablet(s), Oral, once a day Stop Taking the Following Medications: Medication list as of 09-14-13 14:23 Attention: If you have any medications at home that are not on this list, DO NOT take them until youcontact your provider for clarification. Give a copy of your medication list to your primary care provider. Update your medication list any time medications or doses are changed and carry your medication list at all times in case of emergency. Your Allergies & Intolerances Substance Reaction Symptoms Category Comments No Known Allergies Drug Your Problem List Problem Status Onset Comments No Chronic Problems Active Your Upcoming Appointments Date Time Location Reason Provider No Appointments found Attention: Contact your local Clinic if further appointment detail needed. Your Goals/Additional instructions: Source: [facility] Document Id: [id number] R ANALYST Miscellaneous - Sherlyn Solis M.D. - 09/14/2013 2:23 PM WATER ANALYST Ambulatory Depart Summary [address] [address] Visit Information Name: ISHAAN SULLIVAN [facility] Number: [id number] Visit Date: 09/14/2013 14:23:15 Attending Provider: SHERLYN BECKER MD Primary Care Provider: SHERLYN BECKER MD ISHAAN SULLIVAN has been given the following list of medications: Your Medications It is important to take your medications as directed. Use a pill box or chart to help remind you to take your medications. Please let your doctor or nurse know if you have problems taking your medications. Medication/Strength How to Take Indications/Special Instructions/Comments/Notes for Patient Medication Changes/Routing metroNIDAZOLE (metroNIDAZOLE 500 mg oral tablet) 1 Tablet(s), Oral, two times a day x 7 day(s) New Routed to [facility] [address] [place] [address] norgestimate-ethinyl estradiol (TriNessa oral tablet) 1 Tablet(s), Oral, once a day Stop Taking the Following Medications: Medication list as of 09-14-13 14:23 Attention: If you have any medications at home that are not on this list, DO NOT take them until youcontact your provider for clarification. Give a copy of your medication list to your primary care provider. Update your medication list any time medications or doses are changed and carry your medication list at all times in case of emergency. Additional Information: Source: [facility] ELIKECHART Document Id: [id number] R ANALYST Miscellaneous - Conversion, Historical Provider Ser - 09/14/2013 1:35 PM WATER ANALYST Adult Occupational Medicine Officer Intake/History Adult Occupational Medicine Officer Intake/History Entered On: 09/14/2013 13:40 WATER ANALYST Performed On: 09/14/2013 13:35 WATER ANALYST by ANDERSON GARDUNO LPN Intake Chief Complaint : vaginal irritation Temperature Core : 36.9 DegC(Converted to: 98.4 DegF) Peripheral Pulse Rate : 64 /min Respiratory Rate : 16 /min Systolic Blood Pressure : 118 mmHg Diastolic Blood Pressure : 72 mmHg NIBP Mean : 87 mmHg BP Location : Left upper extremity Blood Pressure Cuff Size : Regular Height : 162 cm(Converted to: 5 ft 4 inch(es), 63.78 inch(es)) Actual Weight : 67 kg(Converted to: 147 lb 11 oz) Dosing Weight Clinic : 67 kg Clinic BSA : 1.74 Body Mass Index : 25.53 kg/m2 LALITO JENNIFER, ANDERSONSUMAN NGUYEN RUBBER MIXER - 09/14/2013 13:35 WATER ANALYST General Info Information Given By : Patient Languages : Montserratian LALITO LEDEZMADEWEY ANDERSON WENDY RUBBER MIXER - 09/14/2013 13:35 WATER ANALYST Subjective Pain Symptoms : No LALITO JENNIFER, ANDERSONSUMAN NGUYEN LPN - 09/14/2013 13:35 WATER ANALYST Dependent Habits Tobacco Use/Currently Using : No Exposure to Tobacco Smoke : Lives with someone who smokes Smoking Status : Never smoker ANDERSON GARDUNO LPN - 09/14/2013 13:35 WATER ANALYST Tobacco Use Grid Other Tobacco Frequency : non ANDERSON GARDUNO LPN - 09/14/2013 13:35 WATER ANALYST Caffeine Use Grid Caffeine Use : Current Type : Chocolate, Coffee, Soft drinks Frequency : Daily Amount : 1 cup coffee ANDERSON GARDUNO LPN - 09/14/2013 13:35 WATER ANALYST Source: [facility] POWERCHART Document Id: [id number] WATER ANALYST!34 documented in this encounter Plan of Treatment Not on filedocumented as of this encounter Procedures Procedure Name Priority Date/Time Associated Comments Diagnosis C TRACH AMP SRC Routine 09/14/2013 2:06 PM Result s for this WATER ANALYST procedure are i n the results section. C TRACH AMP RNA Routine 09/14/2013 2:06 PM Result s for this WATER ANALYST procedure are i n the results section. HERPES SIMPLEX VIRUS Routine 09/14/2013 2:06 PM R esults for this PCR WATER ANALYST procedure are i n the results section. WET PREP EXAM, Routine 09/14/2013 2:06 PM Results for this UROGENITAL WATER ANALYST procedure are i n the results section. documented in this encounter Results HX-C trach Amp RNA (09/14/2013 2:06 PM WATER ANALYST) [facility] Method Time Signature Chlamydia Negative POWERCHART trachomatis amplified RNA Specimen (Source) Anatomical Collection Method Collection Time Re ceived Time Location / / Volume Laterality 09/14/2013 2:06 PM WATER ANALYST Narrative POWERCHART - 09/15/2013 7:30 PM WATER ANALYST Test Performed by: [place] [address] Licensed Final Expense Agents: Josemanuel foote III, M.D. Sherlyn Morales M.D. LAB HISTORICAL ORDERS Performing Organization Address City/[facility] Code Phon e Number POWERCHART HX-C trach Amp Src (09/14/2013 2:06 PM WATER ANALYST) [facility] Method Time Signature HXC trach Amp endocervical POWERCHART [facility] Specimen (Source) Anatomical Collection Method Collection Time Re ceived Time Location / / Volume Laterality 09/14/2013 2:06 PM WATER ANALYST Sherlyn Morales M.D. LAB HISTORICAL ORDERS Performing Organization Address [facility] Code Phon e Number POWERCHART Herpes Simplex Virus PCR (09/14/2013 2:06 PM WATER ANALYST) P athologist Signature HXHSV PCR cervical POWERCHART [facility] HSV 1 PCR, B Negative Negative POWERCHART HSV 2 PCR, B Negative Negative POWERCHART Comment: Analyte Specific Reagent: This test was developed and its performance characteristics determined b y [facility]. It has not been cleared or approved by the U.S. Food and Drug Administration. Test Performed by: [place] [address] Licensed Final Expense Agents: Josemanuel foote III, M.D. Specimen (Source) Anatomical Collection Method Collection Time Re ceived Time Location / / Volume Laterality Kim Review 09/14/2013 2:06 PM WATER ANALYST Sherlyn Morales M.D. LAB MICROBIOLOGY - GEN ERAL ORDERABLES Performing Organization Address City/[facility] Phon e Number POWERCHART (ABNORMAL) Wet Prep Exam, Urogenital (09/14/2013 2:06 PM WATER ANALYST) Analysis Performed At Patho logist Time Signature HXWet Prep (POSITIVE) POWERCHART HXFinal Trichomonas: POWERCHART Negative HXFinal Clue Cells: POWERCHART Positive HXFinal Yeast: POWERCHART Negative HXFinal Sperm: POWERCHART Negative Specimen (Source) Anatomical Collection Method Collection Time Re ceived Time Location / / Volume Laterality Vagina 09/14/2013 2:06 PM WATER ANALYST Sherlyn Morales M.D. LAB MICROBIOLOGY - GEN ERAL ORDERABLES Performing Organization Address City/[facility] Phon e Number POWERCHART documented in this encounter Visit Diagnoses Not on filedocumented in this encounter
[2022-06-01 12:51] LABS: Free T4 Free Thyroxine* 0.71 ng/dL (0.70-1.85)
== END 2022-06-01 14:54 | disposition home or self-care (01) ==
PROVIDERS: PCP Family Medicine; Visit Provider Family Medicine
DX: E03.9 Hypothyroidism, unspecified (principal)
CPT/HCPCS: 84439; 84443

== ENCOUNTER 2022-07-05 07:07 | Outpatient (CLI) | payer MEDICAID, SELFPAY ==
--- OUTSIDE RECORDS SUMMARY | 2022-07-05 09:33 | XMS_ITS | Encounter Summary ---
:1995 Author Organization [facility] Address [address] [place] [address] Care Team Providers Name Role Phone Alina Morales M.D. Primary Care Provider [phone] Encounter Details Date Type Department Care Team Description 03/03/2020 Orders Only RST PCP [facility] Alina Young M.D. [address] [place], [place] [address] (Wo rk) Social History Tobacco Use Types Packs/Day Years Used Date Smoking Tobacco: Never Sex Assigned at Date Recorded Not on file documented as of this encounter Plan of Treatment Not on filedocumented as of this encounter Visit Diagnoses Not on filedocumented in this encounter Care Teams Second Worker Relationship Specialty Start Date End Date Alina Morales M.D. PCP - General 03/31/17 11/26/20 [address] [place] [address] documented as of this encounter
--- OUTSIDE RECORDS SUMMARY | 2022-07-05 09:33 | XMS_ITS | Encounter Summary ---
:1995 Author Organization [facility] Address [address] [place] [address] Care Team Providers Name Role Phone Unavailable Primary Care Provider Unavailable Encounter Details Date Type Department Care Team Description 04/04/2015 Hospital Encounter HX [facility] Provider, Cody rodriguez Social [...] HALIMA MALHOTRA - 04/04/2015 8:41 CDT Source: [facility] POWERCHART Document Id: [id number] CDT!6 documented in this encounter Plan of [...]
--- OUTSIDE RECORDS SUMMARY | 2022-07-05 09:33 | XMS_ITS | Encounter Summary ---
:1995 Author Organization [facility] Address [address] [place] [address] Care Team Providers Name Role Phone Unavailable Primary Care Provider Unavailable Encounter Details Date Type Department Care Team Description 09/22/2015 Hospital Encounter HX NO MAPPING Mala Islas, SEAT COVER INSTALLER, C.N.P. [address] [place], [place] [phone] (Wo rk) Social History Tobacco Use Types Packs/Day Years Used Date Smoking Tobacco: Never Assessed Sex Assigned at Date Recorded Not on file documented as of this encounter Miscellaneous Notes Miscellaneous - Conversion, Historical Provider Ser - 09/22/2015 11:59 PM THIN FILM TECHNICIAN Coding Summary-Paper Based CODING DATE: 10/15/2015 FINAL [facility] STATUS: * Discharged to Home [...] CONNOLLY Date Saved: 10/15/2015 02:13 pm [facility] Document Id: [id number] documented in this encounter Plan of Treatment Not on filedocumented as of this encounter Visit Diagnoses Not on filedocumented in this encounter
--- OUTSIDE RECORDS SUMMARY | 2022-07-05 09:33 | XMS_ITS | Encounter Summary ---
:[address] [facility] Address [address] [place] [address] Care Team Providers Name Role Phone Justin Taylor M.D. Primary Care Provider Encounter Details Date Type Department Care Team Description 06/02/2021 Orders Only [facility] Joan Bradford M.D. [address] [facility] [place] [place] [phone] (Wo rk) Social History Tobacco Use Types Packs/Day Years Used Date Smoking Tobacco: Never Sex Assigned at Date Recorded Not on file documented as of this encounter Plan of Treatment Not on filedocumented as of this encounter Visit Diagnoses Not on filedocumented in this encounter Care Teams Crystal Grower Relationship Specialty Start Date End Date Justin Taylor M.D. PCP - General 11/27/20 [address] [facility] [place] [address] documented as of this encounter
--- OUTSIDE RECORDS SUMMARY | 2022-07-05 09:33 | XMS_ITS | Encounter Summary ---
:1995 Author Organization [facility] Address [address] [place] [address] Care Team Providers Name Role Phone Alina Morales M.D. Primary Care Provider [phone] Reason for Visit Reason Onset Date Comments Outpatient COVID-19 Testing 08/24/2020 Encounter Details Date Type Department Care Team Description 08/24/2020 External Outreach Department of [facility] Rebolledo Infect ion Upper Internal Medicine in J, D.O. Respiratory (Primary Medicine [place], [place] [address] Dx) [address] [place] [phone] Social History Tobacco Use Types Packs/Day Years Used Date Smoking Tobacco: Never Sex Assigned at Date Recorded Not on file documented as of this encounter Progress Notes Paloma Marques R.N. - 08/24/2020 8:18 AM CST Encounter created for the drive-through COVID-19 testing. NSING ENGINEER documented in this encounter Plan of Treatment Not on filedocumented as of this encounter Procedures Procedure Name Priority Date/Time Associated Diagnosis Comme nts SARS CORONAVIRUS-2 Routine 08/24/2020 9:34 AM Infection Upper Results for this RNA, V LICENSING ENGINEER Respiratory procedure are i n the results section. documented in this encounter Results SARS Coronavirus-2 RNA, V Symptomatic (08/24/2020 9:34 AM LICENSING ENGINEER) [facility] Method Time Signature SARS-CoV-2 Swab, 08/25/2020 [facility] Specimen Nasopharynx 12:31 AM Source LICENSING ENGINEER SARS CoV-2 Undetected Undetected 08/25/2020 [facility] RNA, TMA 12:31 AM LICENSING ENGINEER Comment: SARS-CoV-2 RNA absent. This result does not rule out COVID-19 in the patient, as the sensitivity of the test depends o n the timing of the specimen collection and the quality of the specim en. Result should be correlated with patient's history and clinical presentat ion. ----ADDITIONAL INFORMATION---- This test is performed using the Aptima SARS-CoV-2 assay ([employer] which has received Emergency Use Authori zation (EUA) by the U.S. Food and Drug Administration. Fact sheets for this Emergency Use Autho rization (EUA) assay can be found at the following links: For Healthcare Providers: https://www.Pulsant a.gov/media/431269/download For Patients: https://www.fda.gov/media/ 133615/download Specimen Anatomical Collection Method Collection Time Receive d Time (Source) Location / / Volume Laterality Varies 08/24/2020 9:34 AM 0 5:05 (Nasopharynx) LICENSING ENGINEER PM LICENSING ENGINEER [facility] Rebolledo D.O. LAB MICROBIOLOGY - GENERAL O RDERABLES Performing Organization Address City/State/ZIP [facility] Phon e Number [facility] [address] [place] [phone] [place] [address] [place] [address] [address] documented in this encounter Visit Diagnoses Diagnosis Infection Upper Respiratory - Primary documented in this encounter Additional Health Concerns Infection Onset Date Last Indicated Resolved Time COVID19 Pending 08/24/2020 08/24/2020 08/25/2020 12:31 AM LICENSING ENGINEER documented as of this encounter Care Teams Tile Decorator Relationship Specialty Start Date End Date Alina Morales M.D. PCP - General 03/31/17 11/26/[address] [place] [phone] documented as of this encounter
--- OUTSIDE RECORDS SUMMARY | 2022-07-05 09:33 | XMS_ITS | Encounter Summary ---
:1995 Author Organization [facility] Address [address] [place] [address] Care Team Providers Name Role Phone Justin Taylor M.D. Primary Care Provider Encounter Details Date Type Department Care Team Description 02/03/2021 Orders Only [facility] Sa jenny James M.D. [address] [place], [place] [phone] (Wo rk) Social History Tobacco Use Types Packs/Day Years Used Date Smoking Tobacco: Never Sex Assigned at Date Recorded Not on file documented as of this encounter Plan of Treatment Not on filedocumented as of this encounter Visit Diagnoses Not on filedocumented in this encounter Care Teams Billing Control Clerk Relationship Specialty Start Date End Date Justin Taylor M.D. PCP - General 11/27/[address] [place], [place] [address] [phone] documented as of this encounter
--- OUTSIDE RECORDS SUMMARY | 2022-07-05 09:33 | XMS_ITS | Encounter Summary ---
:1995 Author Organization [facility] Address [address] [place] [address] Care Team Providers Name Role Phone Unavailable Primary Care Provider Unavailable Encounter Details Date Type Department Care Team Description 11/08/2014 Hospital Encounter HX [facility] FAMILYPRA Alina Eaton i, M.D. [address] [place] [address] (Wo rk) Social History Tobacco Use Types Packs/Day Years Used Date Smoking Tobacco: Never Assessed Sex Assigned at Date Recorded Not on file documented as of this encounter Last Filed Vital Signs Vital Sign Reading Time Taken Comments Blood Pressure 120/70 11/08/2014 2:24 PM HUB ASSOCIATE Pulse 84 11/08/2014 2:24 PM HUB ASSOCIATE Temperature - - Respiratory Rate 16 11/08/2014 2:24 PM HUB ASSOCIATE Oxygen Saturation - - Inhaled Oxygen Concentration - - Weight 72 kg (158 lb 11.7 oz) 11/08/2014 2:24 PM HUB ASSOCIATE Height 163 cm (5' 4.17) 11/08/2014 2:24 PM HUB ASSOCIATE Body Mass Index 27.1 11/08/2014 2:24 PM HUB ASSOCIATE documented in this encounter Progress Notes Alina Martinez M.D. - 11/08/2014 2:01 PM CST [id number] CHIEF COMPLAINT/ REASON FOR VISIT Left-sided facial [...] their behalf by Meghana Mtz, a trained clinical specialist medical device. The creation of this record is based on the scribe's personal observations and the provider's statements to them. This document has been eze cked and approved by the attending provider. Alina Gautam M.D./shahid Electronically Signed By: ALINA MARTINEZ MD On: 12/01/2014 08:29 PM Source: [facility] MHSDOLBEYNONRADSYS Document Id: [id number] ASSOCIATE documented in this encounter Miscellaneous Notes Miscellaneous - Nitin Avendano, RCatN. - 10/25/2016 11:15 AM CST jesus manuel alejandros From: NITIN AVENDANO RN To: ALINA MARTINEZ MD; Sent: 10/25/2016 11:15:47 HUB ASSOCIATE Subject: trinessa tabs Caller is: ( ) Patient ( ) Mother ( ) Father ( ) Spouse ( ) Daughter ( ) Son ( ) Pharmacy ( ) Other: [facility] Name of Medications Needing Refill: trinessa 0.18/0.215/0.25 tabs- one tab po every day Last Refill Date: 08-08-16 #84 Additional Information: Last / Future Appointment: you last saw 11-08-14, did see mode on 09-22-15 Disposition: ( ) Send to Pharmacy ( ) Call to Pharmacy ( ) Patient will supervisor opening and picking Script ( ) Mail Rx to Patient Source: [facility] POWERCHART Document Id: [id number] Miscellaneous - Alina Martinez M.D. - 11/13/2014 10:10 PM HUB ASSOCIATE Normal Results Letter 13 November 2014 ISHAAN SULLIVAN [address] [id number] Dear ISHAAN SULLIVAN, I am pleased to [...] Absolute (x10(9)/L) 1.35 11/08/2014 0.90 - 2.90 Shelby Absolute (x10(9)/L) 0.36 11/08/2014 0.30 - 0.90 Eos Absolute (x10(9)/L) 320(L) 0.02 11/08/2014 0.05 - 0.50 Baso Absolute (x10(9)/L) 0.03 11/08/2014 0.00 - 0.30 Differential? Auto 11/08/2014 Sincerely, ALINA GAUTAM [address] [place] [address] Electronic Signature Electronically Signed By: ALINA MARTINEZ MD On: 13 November 2014 This document has images extracted. Source: [facility] POWERCHART Document Id: [id number] Electronically signed by Conversion, [facility] Parquet Floor Layer [id number] at 03/13/2017 2:04 PM CDT Miscellaneous - Conversion, Historical Provider Ser - 11/08/2014 2:24 PM HUB ASSOCIATE Adult Laminating Machine Feeder Intake/History Adult Laminating Machine Feeder Intake/History Entered On: 11/08/2014 14:28 HUB ASSOCIATE Performed On: 11/08/2014 14:24 HUB ASSOCIATE by ANDERSON GARDUNO LPN Intake Chief Complaint [...] kg/m2 ANDERSON GARDUNO LPN - 11/08/2014 14:24 HUB ASSOCIATE General Info Information Given By : Patient Languages : Turkmen Is Patient Female and 13-50 no hysterectomy : Yes Status : Patient denies Are you ? : No ANDERSON GARDUNO LPN - 11/08/2014 14:24 HUB ASSOCIATE Subjective Pain Symptoms : Yes ANDERSON GARDUNO LPN - 11/08/2014 14:24 HUB ASSOCIATE Pain Scale Pain Scale Verbal 0-10 : Open ANDERSON GARDUNO LPN - 11/08/2014 14:24 HUB ASSOCIATE Pain Pain Assessment Grid Pain 1 Location : Head ANDERSON GARDUNO LPN - 11/08/2014 14:24 HUB ASSOCIATE Dependent Habits Tobacco Use/Currently Using : No Exposure to Tobacco Smoke : Lives with someone who smokes Smoking Status : Never smoker ANDERSON GARDUNO [facility] - 11/08/2014 14:24 HUB ASSOCIATE Tobacco Use Grid Other Tobacco Frequency : non ANDERSON GARDUNO [facility] - 11/08/2014 14:24 HUB ASSOCIATE Caffeine Use Grid Caffeine Use : Current Type : Chocolate, Coffee, Soft drinks Frequency : Daily Amount : 1 cup coffee ANDERSON GARDUNO [facility] - 11/08/2014 14:24 HUB ASSOCIATE ID Screen Travel Within Last 21 Days : No ANDERSON GARDUNO [facility] - 11/08/2014 14:24 HUB ASSOCIATE [facility] Document Id: [id number] [id number] documented in this encounter Plan of Treatment Not on filedocumented as of this encounter Procedures Procedure Name Priority Date/Time Associated Diagnosis Comme nts AUTOMATED Routine 11/08/2014 3:21 PM Results f or this DIFFERENTIAL, B HUB ASSOCIATE procedure ar e in the results section. CBC WITH Routine 11/08/2014 3:21 PM Results f or this DIFFERENTIAL, B HUB ASSOCIATE procedure ar e in the results section. THYROID-STIMULATING Routine 11/08/2014 3:21 PM Re sults for this HORMONE-SENSITIVE HUB ASSOCIATE procedure are in (S-TSH) the results section. BASIC METABOLIC Routine 11/08/2014 3:21 PM Result s for this PANEL, S/P HUB ASSOCIATE procedure are i n the results section. documented in this encounter Results (ABNORMAL) Automated Differential (11/08/2014 3:21 PM HUB ASSOCIATE) [facility] gist Method Time Signature Absolute 3.92 [...] Laterality Blood 11/08/2014 3:21 PM 5 3:21 HUB ASSOCIATE PM HUB ASSOCIATE Alina Morales M.D. LAB BLOOD ADD-ON Performing Organization Address City/State/ZIP Code Phon e Number POWERCHART CBC with Differential (11/08/2014 3:21 PM HUB ASSOCIATE) P athologist Signature Leukocytes 5.7 3.4 - 10.5 POWERCHART X109L Erythrocytes 4.41 3.90 - POWERCHART 5.03 [id number] Hemoglobin 12.7 12.0 - POWERCHART 15.5 GDL Hematocrit 37.5 34.9 - POWERCHART 44.5 MCV 85.0 82.0 - POWERCHART 98.0 FL Platelet Count 283 150 - 450 POWERCHART X109L HX RDW 12.6 11.9 - POWERCHART 15.5 HXDifferential? Auto POWERCHART Specimen (Source) Anatomical Collection Method Collection Time Re ceived Time Location / / Volume Laterality Blood 11/08/2014 3:21 PM HUB ASSOCIATE Alina Morales M.D. LAB BLOOD ADD-ON Performing Organization Address City/State/ZIP Code Phon e Number POWERCHART Thyroid-Stimulating Hormone-Sensitive (s-TSH) (11/08/2014 3:21 PM HUB ASSOCIATE) athologist Signature TSH 1.08 0.27 - 4.20 POWERCHART (Thyrotropin) MIUL Specimen (Source) Anatomical Collection Method Collection Time Re ceived Time Location / / Volume Laterality Blood 11/08/2014 3:21 PM HUB ASSOCIATE Alina Morales M.D. LAB BLOOD ADD-ON Performing Organization Address City/State/ZIP Code Phon e Number POWERCHART BMP (Basic Metabolic Panel) (11/08/2014 3:21 PM HUB ASSOCIATE) P athologist Signature BUN (Blood Urea 10 6 - 20 POWERCHART Nitrogen), S MGDL Creatinine 0.8 0.7 - 1.2 POWERCHART MGDL Glucose 92 POWERCHART Potassium, S 4.2 3.5 - 4.8 POWERCHART MMOLL Sodium, S 141 135 - 145 POWERCHART MMOLL Chloride, S 101 100 - 108 POWERCHART MMOLL CO2 Total 29 22 - 30 POWERCHART MMOLL Calcium, Total, 9.9 8.5 - 10.5 POWERCHART S MGDL HXeGFR (MDRD) >60 MLMIN POWERCHART eGFR >60 >=60 POWERCHART Black/ [id number] Peruvian Specimen (Source) Anatomical Collection Method Collection Time Re ceived Time Location / / Volume Laterality Blood 11/08/2014 3:21 PM HUB ASSOCIATE Alina Morales M.D. LAB BLOOD ADD-ON Performing Organization Address City/State/ZIP Code Phon e Number POWERCHART documented in this encounter Visit Diagnoses Not on filedocumented in this encounter
--- OUTSIDE RECORDS SUMMARY | 2022-07-05 09:33 | XMS_ITS | Encounter Summary ---
:1995 Author Organization [facility] Address [address] [place] [address] Care Team Providers Name Role Phone Alina Morales M.D. Primary Care Provider Encounter Details Date Type Department Care Team Description 08/16/2017 Orders Only Department of Family [facility] eening Examination Medicine [place], Diabe misty [place] Kaylene [address] [place] [address] [place], [place] [phone] Social History Tobacco Use Types Packs/Day Years Used Date Smoking Tobacco: Never Sex Assigned at Date Recorded Not on file documented as of this encounter Plan of Treatment Not on filedocumented as of this encounter Visit Diagnoses Diagnosis Screening Examination Diabetes Mellitus documented in this encounter Care Teams Registered Nurse Relationship Specialty Start Date End Date Alina Morales M.D. PCP - General 03/31/17 2 [address] [place] [phone] documented as of this encounter
--- OUTSIDE RECORDS SUMMARY | 2022-07-05 09:33 | XMS_ITS | Encounter Summary ---
:1995 Author Organization [facility] Address [address] [place] [address] Care Team Providers Name Role Phone Alina Morales M.D. Primary Care Provider Encounter Details Date Type Department Care Team Description 08/24/2020 Admin Visit Department of Family Medicine, [address] [address] [facility] [phone] Social History Tobacco Use Types Packs/Day Years Used Date Smoking Tobacco: Never Sex Assigned at Date Recorded Not on file documented as of this encounter Plan of Treatment Not on filedocumented as of this encounter Visit Diagnoses Not on filedocumented in this encounter Additional Health Concerns Infection Onset Date Last Indicated Resolved Time COVID19 Pending 08/24/2020 08/24/2020 08/25/2020 12:31 AM SENIOR 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 PCP - General 03/31/17 11/26/20 [address] [phone] documented as of this encounter
--- OUTSIDE RECORDS SUMMARY | 2022-07-05 09:33 | XMS_ITS | Encounter Summary ---
:1995 Author Organization [facility] Address [address] [place] [address] Care Team Providers Name Role Phone Alina Morales M.D. Primary Care Provider [phone] Encounter Details Date Type Department Care Team Description 06/28/2017 Hospital Encounter HX [facility] Alina Wu M.D. [address] [place], [place] [phone] (Wo rk) Social History [...] have to make an appointment in the director dietetics department department so I will send a message to them and you should be able to schedule to get things started. Sincerely, Andria Matias PA-C OB nursing, will you please help this patient get set up for OB care? Results: Date Result Name Ind Value Ref Range 06/28/2017 12:01 Beta hCG Qnt (H) 568.8 IU/L ( - <=4.9) Source: [facility] POWERCHART Document Id: [id number] documented in this encounter Plan of Treatment [...] hCG. Biotin [facility] a potential interfering substance. Higher [...] on filedocumented in this encounter Care Teams Deaf/Hard Of Hearing Specialist Relationship Specialty Start Date End Date Alina Morales M.D. PCP - General 03/31/17 11/26/20 [address], [place] [phone] documented as of this encounter
--- OUTSIDE RECORDS SUMMARY | 2022-07-05 09:33 | XMS_ITS | Encounter Summary ---
:1995 Author Organization [facility] Address [address] [place] [address] Care Team Providers Name Role Phone Unavailable Primary Care Provider Unavailable Encounter Details Date Type Department Care Team Description 04/02/2015 Hospital Encounter HX [facility] OWOC Bo Cameron, P.A. -C. [address] [place] [phone] (Wo rk) Social History Tobacco [...] MIGDALIA MILLER - 04/02/2015 8:23 CDT Source: [employer] Document Id: [id number] [id number] documented in this encounter Plan of Treatment Not on filedocumented as of this encounter Visit Diagnoses Not on filedocumented in this encounter
--- OUTSIDE RECORDS SUMMARY | 2022-07-05 09:33 | XMS_ITS | Encounter Summary ---
:1995 Author Organization [facility] Address [address] [place] [address] Care Team Providers Name Role Phone Alina Morales M.D. Primary Care Provider Encounter Details Date Type Department Care Team Description 02/27/2018 Orders Only Department of [place] [facility] [facility], [address] [place] [phone] [place] [address] [place] [phone] Social History Tobacco Use Types Packs/Day Years Used Date Smoking Tobacco: Never Sex Assigned at Date Recorded Not on file documented as of this encounter Plan of Treatment Not on filedocumented as of this encounter Visit Diagnoses Not on filedocumented in this encounter Care Teams 3Rd Mate Relationship Specialty Start Date End Date Alina Morales M.D. PCP - General 03/31/17 11/26/20 [address] [place] [phone] documented as of this encounter
--- OUTSIDE RECORDS SUMMARY | 2022-07-05 09:33 | XMS_ITS | Encounter Summary ---
:1995 Author Organization [facility] Address [address] [place] [address] Care Team Providers Name Role Phone Unavailable Primary Care Provider Unavailable Encounter Details Date Type Department Care Team Description 09/22/2015 Hospital Encounter HX [facility] FAMILYPRA Andra Jimenez APRN, C.N.P. [address] [place] [address] (Wo rk) Social History Tobacco Use Types Packs/Day Years Used Date Smoking Tobacco: Never Assessed Sex Assigned at Date Recorded Not on file documented as of this encounter Last Filed Vital Signs Vital Sign Reading Time Taken Comments Blood Pressure 110/64 09/22/2015 2:49 PM MEDICAL EDUCATOR Pulse 72 09/22/2015 2:49 PM MEDICAL EDUCATOR Temperature - - Respiratory Rate 20 09/22/2015 2:49 PM MEDICAL EDUCATOR Oxygen Saturation - - Inhaled Oxygen Concentration - - Weight 74.5 kg (164 lb 3.9 oz) 09/22/2015 2:49 PM MEDICAL EDUCATOR Height 163 cm (5' 4.17) 09/22/2015 2:49 PM MEDICAL EDUCATOR Body Mass Index 28.04 09/22/2015 2:49 PM MEDICAL EDUCATOR documented in this encounter Progress Notes Gilson [...] screen pending. UA Color Yellow 09/22/2015 15:21 MEDICAL EDUCATOR UA Clarity Clear 09/22/2015 15:21 MEDICAL EDUCATOR UA Spec Grav 1.025 09/22/2015 15:21 MEDICAL EDUCATOR UA pH 5.0 09/22/2015 15:21 MEDICAL EDUCATOR UA Protein Negativ 09/22/2015 15:21 MEDICAL EDUCATOR UA Glucose Negativ 09/22/2015 15:21 MEDICAL EDUCATOR UA Ketones Negativ 09/22/2015 15:21 MEDICAL EDUCATOR UA Bili Negativ 09/22/2015 15:21 MEDICAL EDUCATOR UA Urobilinogen 0.2 09/22/2015 15:21 MEDICAL EDUCATOR UA Blood Trace. 09/22/2015 15:21 MEDICAL EDUCATOR (Abnormal) UA Nitrite Negativ 09/22/2015 15:21 MEDICAL EDUCATOR UA Leuk Est Smal 09/22/2015 15:21 MEDICAL EDUCATOR (Abnormal) UR WBC 4-10 09/22/2015 15:21 MEDICAL EDUCATOR UR RBC Occ-2 09/22/2015 15:21 MEDICAL EDUCATOR UR Bacteria Present 09/22/2015 15:21 MEDICAL EDUCATOR (Abnormal) DIAGNOSTIC RESULTS X-ray abdomen shows fecal retention. IMPRESSION/REPORT/PLAN Constipation NOS Miralax as directed. Increase fiber in the diet. Drink plenty of fluids. Total time spent with the patient 25 minutes. 20 minutes of it counseling and coordinating care including discussing treatment and prevention of constipation. Ordered: OV Est Pt Level 4 - 92287 - 25 min Nausea NOS Ordered: OV Est Pt Level 4 - 58911 - 25 min Pain L Lower Quadrant (LLQ) Ordered: Culture Urine OV Est Pt Level 4 - 97245 - 25 min Orders: Chlamydia by Nucleic Acid Amp Electronically Signed By: GILSON JIMENEZ CNP On: 09/22/2015 04:34 PM Source: [employer] POWERCHART Document Id: [id number] CAL EDUCATOR documented in this encounter Nursing Notes Gilson [...] Your health care provider may suggest an ndqg-gfa-zgbyzbh product to help ease your constipation. If so, follow directions carefully when using it. ?? [id number] [facility], [address] [place] [address]. All rights reserved. This information is not intended as a substitute for professional medical care. Always follow your healthcare professional's instructions. This document has images extracted. Please consider using [employer] for all your patient education needs. Source: [facility] POWERCHART Document Id: [id number] CAL EDUCATOR documented in this encounter Miscellaneous Notes Miscellaneous - Gilson Jimenez APRN, C.N.P. - 09/24/2015 11:54 AM MEDICAL EDUCATOR Normal Results Letter 24 September 2015 ISHAAN SULLIVAN [address] [place] [id number] Dear ISHAAN SULLIVAN, I am pleased to [...] Review 09/22/2015 Sincerely, GILSON JIMENEZ [address] [place] [address] Electronic Signature Electronically Signed By: GILSON JIMENEZ CNP On: 24 September 2015 This document has images extracted. Source: [facility] POWERCHART Document Id: [id number] Miscellaneous - Gilson Jimenez, TACO, C.N.P. - 09/22/2015 4:10 PM CST Ambulatory Patient Summary [place] [id number] [place] [id number] Visit Information Name: ISHAAN SULLIVAN [facility] Number: [id number] Current Date: 09/22/2015 16:10:12 Physicians [...] Your health care provider may suggest an foan-qpn-gwwiijj product to help ease your constipation. If so, follow directions carefully when using it. ?? [id number] [facility], [address] [place] [address], [place] [address]. All rights reserved. This information is not [...] if you dont have one. Go to [email or web address] and click on Create Your Account. Then, follow the directions to complete the online form. Youll be asked for your [facility] number which you can find at the top of this document. Your Goals/Additional instructions: This document has images extracted. Please consider using [employer] for all your patient education needs. Source: [facility] POWERCHART Document Id: [id number] CAL EDUCATOR Miscellaneous - Gilson Jimenez APRN, C.N.P. - 09/22/2015 4:10 PM CST Ambulatory Discharge Medication List [address] [id number] Visit Information Name: ISHAAN SULLIVAN [facility] Number: [id number] Visit Date: 09/22/2015 16:10:12 Attending [...] of emergency. Electronically Signed By: GILSON JIMENEZ PSYCH RN Signed On:22-SEP-2015 16:09:48 Additional Information: Source: [facility] POWERCHART Document Id: [id number] CAL EDUCATOR Miscellaneous - Hoa Mir L.P.N. 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 : No HOA MIR LPN - 09/22/2015 14:49 MEDICAL EDUCATOR Subjective Pain Symptoms : Yes HOA MIR LPN - 09/22/2015 14:49 MEDICAL EDUCATOR Pain Scale Pain Scale Verbal 0-10 : Open HOA MIR LPN - 09/22/2015 14:49 MEDICAL EDUCATOR Pain Pain Assessment Grid Pain 1 Location : Abdomen Intensity : 5 Time Pattern : Constant HOA MIR KATHIE - 09/22/2015 14:49 MEDICAL EDUCATOR Dependent Habits Exposure to Tobacco Smoke : Lives with someone who smokes, Other: Never Smoking Status : Never smoker Tobacco 2A : No HOA MIR KATHIE - 09/22/2015 14:49 MEDICAL EDUCATOR Caffeine Use Grid Caffeine Use : Current Type : Chocolate, Coffee, Soft drinks Frequency : Daily Amount : 1 cup coffee HOA MIR KATHIE - 09/22/2015 14:49 MEDICAL EDUCATOR Source: [facility] POWERCHART Document Id: [id number] MEDICAL EDUCATOR!45 CAL EDUCATOR documented in this encounter Plan of Treatment Not on filedocumented as of this encounter Procedures Procedure Name Priority Date/Time Associated Comments Diagnosis BACTERIAL CULTURE, Routine 09/22/2015 4:20 PM Res ults for this AEROBIC, URINE MEDICAL EDUCATOR procedure are in the results section. CHLAMYDIA TRACHOMATIS Routine 09/22/2015 3:21 PM Results for this AMPLIFIED RNA MEDICAL EDUCATOR procedure are in the results section. URINALYSIS, ROUTINE Routine 09/22/2015 3:21 PM Re sults for this MEDICAL EDUCATOR procedure are i n the results section. URINE MICROSCOPIC Routine 09/22/2015 3:21 PM Resu lts for this MEDICAL EDUCATOR procedure are i n the results section. DX ABDOMEN SUPINE Routine 09/22/2015 3:13 PM Resu lts for this WITH UPRIGHT OR MEDICAL EDUCATOR procedure ar e in DECUBITUS 2 VIEWS the result s section. documented in this encounter Results Bacterial Culture, Aerobic, Urine (09/22/2015 4:20 PM MEDICAL EDUCATOR) [facility] [place] gist Method Time Signature Bacterial POWERCHART Culture, Aerobic, Urine [facility] Mixed sahra. No POWERCHART further studies unless notified. [facility] POWERCHART Microbiology laboratory [phone]. Specimen (Source) Anatomical Collection Method Collection Time Re ceived Time Location / / Volume Laterality Urine, First 09/22/2015 4:20 PM Voided MEDICAL EDUCATOR Gilson Jimenez APRN, C.N.P. LAB MICROBIOLOGY - GENERAL ORDERABLES Performing Organization Address City/State/ZIP Code Phon e Number POWERCHART Chlamydia Trachomatis Amplified RNA (09/22/2015 3:21 PM MEDICAL EDUCATOR) Component Value Ref Test Analysis Performed At [...] / Volume Laterality Urine 09/22/2015 3:21 PM MEDICAL EDUCATOR Gilson Jimenez APRN, C.N.P. LAB MICROBIOLOGY - GENERAL ORDERABLES Performing Organization Address City/State/ZIP Code Phon e Number POWERCHART (ABNORMAL) Urine Microscopic (09/22/2015 3:21 PM MEDICAL EDUCATOR) [facility] Method Time Signature HXUR WBC. 4-10 None Seen POWERCHART HPF HXUR RBC. Occ-2 None Seen POWERCHART HPF HXUR Bacteria, Present (A) None Seen POWERCHART Specimen Anatomical Collection Method Collection Time Receive d Time (Source) Location / / Volume Laterality Urine, First 09/22/2015 3:21 PM 5 3:21 Voided MEDICAL EDUCATOR PM MEDICAL EDUCATOR Gilson Jimenez APRN, C.N.P. LAB URINE ORDERABLES Performing Organization Address City/[facility]/ZIP Code Phon e Number POWERCHART (ABNORMAL) Urinalysis, Routine (09/22/2015 3:21 PM MEDICAL EDUCATOR) [facility] Method Time Signature Clarity Clear Clear POWERCHART HXUr Color Yellow Colorless POWERCHART Specific 1.025 POWERCHART [place], POCT, U pH, POCT, Urine 5.0 <5.0 [...] Laterality Urine, First 09/22/2015 3:21 PM Voided MEDICAL EDUCATOR Gilson Jimenez APRN, C.N.P. LAB URINE ORDERABLES Performing Organization Address City/State/ZIP Code Phon e Number POWERCHART DX Abdomen Supine with Upright or Decubitus 2 Views (09/22/2015 3:13 PM MEDICAL EDUCATOR) Anatomical Region Laterality Modality Abdomen Right Radiographic Imaging Specimen (Source) Anatomical Collection Method Collection Time Re ceived Time Location / / Volume Laterality 09/22/2015 3:13 PM MEDICAL EDUCATOR Addenda Addendum by Provider, Kaylene Macedo 09/22/2015 3:13 PM MEDICAL EDUCATOR RAD^^^OW XR Abdomen 2 Views 09/22/2015 15:13:50 Impressions 09/22/2015 3:41 PM MEDICAL EDUCATOR Fecal retention. Narrative 09/22/2015 3:41 PM MEDICAL EDUCATOR EXAM: XR Abdomen 2 Views INDICATION: LLQ [...] fecal retention. IMPRESSION: Fecal retention. Lindsay Garcia(R)(CT), RNikita(R) IMG DIAGNOSTIC IMAG ING PROCEDURES documented in this encounter Visit Diagnoses Not on filedocumented in this encounter
--- OUTSIDE RECORDS SUMMARY | 2022-07-05 09:33 | XMS_ITS | Clinical Summary ---
:1995 Author Organization [facility] Address [address] [place] [id number] Care Team Providers Name Role Phone Justin Taylor M.D. Primary Care Provider Source Comments Patient records contain information from all sites at [facility]. For routine questions regarding patient records, call [phone] during business hours, M-F 8:00 AM - 5:00 PM Central Time. Record requests for emergency care only can be directed to [phone] at any time.[facility] Immunizations Name Administration Dates Next Due [...] Effective Phone Address T ype Group Dates [facility] [id number] 2020-Pres [phone] [address] PPO OPEN ACCESS [facility] [place] [address] Care Teams Commercial Lawn Specialist Relationship Specialty Start Date End Date Justin Taylor M.D. PCP - General 11/27/[address] [place] [address] RICH Harris [phone]
--- OUTSIDE RECORDS SUMMARY | 2022-07-05 09:33 | XMS_ITS | Encounter Summary ---
:1995 Author Organization [facility] Address [address] [place] [address] Care Team Providers Name Role Phone Alina Morales M.D. Primary Care Provider [phone] Encounter Details Date Type Department Care Team Description 06/23/2017 Hospital Encounter HX [facility] FAMILYPRA Robert Medley, P.A.-CCat [address] [place], [place] [phone] (Wo rk) Social History [...] MATIAS PA-C On: 07/06/2017 06:23 PM Source: [facility] MHSDOLHERACLIOSYS Document Id: [id number] documented in this encounter Miscellaneous Notes Miscellaneous [...] set patient up for OB appointments. Source: [facility] POWERCHART Document Id: [id number] Miscellaneous - Anrdia Matias P.A.-C. - 06/23/2017 6:19 PM CDT Results Notification Document Contains Addenda Addendum by ANDRIA MATIAS PA-C on July 01, 2017 15:25:55 CDT noted. Addendum by JARET KYLE LPN on June 27, 2017 13:58:17 CDT Spoke with: ( X ) Patient ( _ ) Parent ( _ ) Spouse ( _ ) Child ( ) Other: _ Call back telephone number: [phone] Reason for Call: -lab results Chief Complaint: [...] day Callers preferred language for Healthcare discussion: wallisian Was an automotive parts interpreter used for this call? no Other ( --_ ) Addendum by FREDDY VALLADARES on June 27, 2017 13:02:40 CDT Pt returning call to nurse, please call back [phone] Addendum by ANDRIA MATIAS PA-C on June [...] 09:46:00 CDT Subject: RE: Results Notification In [place] we just need to send a message [...] appropriate testing. Is there an equivalent in [place] or do I just do an OB referral? Results: Date Result Name Ind Value Ref Range 06/23/2017 11:34 Beta hCG Qnt (H) 38.0 IU/L ( - <=4.9) Source: [facility] POWERCHART Document Id: [id number] Miscellaneous - Jaret Kyle L.P.NCat - 06/23/2017 [...] None Behavioral Health Screen/Safety Assmt : No Tenriism Preference : No qualifying data available. JARET KYLE LPN - 06/23/2017 10:28 CDT Advance Directive Advanced Directives : No Advance Directive Additional Information : No JARET KYLE LPN - 06/23/2017 10:28 CDT Educ Needs Learning Style Preference Adult Grid Patient : Demonstration Family : None JARET KYLE LPN - 06/23/2017 10:28 CDT Source: [facility] Document Id: [id number] CDT!33 Miscellaneous - Jaret Kyle L.PCatNCat - 06/23/2017 10:24 AM CDT Adult Training Manager Intake/History Adult Training Manager Intake/History Entered On: 06/23/2017 10:28 CDT Performed [...] Communication Mode : Verbal, Written Languages : Sinhala Is Patient Female and 13-50 no hysterectomy [...] : 1 cup coffee JARET KYLE Sharif PULVERIZER TENDER - 06/23/2017 10:24 CDT Source: [facility] [employer] Document Id: [id number] CDT!39 documented in this encounter Plan of [...] on filedocumented in this encounter Care Teams Fish Processing Supervisor Relationship Specialty Start Date End Date Alina Morales M.D. PCP - General 03/31/17 11/26/[address] [address] documented as of this encounter
--- OUTSIDE RECORDS SUMMARY | 2022-07-05 09:33 | XMS_ITS | Encounter Summary ---
:1995 Author Organization [facility] Address [address] [place] [address] Care Team Providers Name Role Phone Alina Morales M.D. Primary Care Provider Encounter Details Date Type Department Care Team Description 09/06/2018 Orders Only Department of [place] [facility], [address] [place] [address] [place] [address] [place] [address] Social History Tobacco Use Types Packs/Day Years Used Date Smoking Tobacco: Never Sex Assigned at Date Recorded Not on file documented as of this encounter Plan of Treatment Not on filedocumented as of this encounter Visit Diagnoses Not on filedocumented in this encounter Care Teams Tobacco Roller Relationship Specialty Start Date End Date Alina Morales M.D. PCP - General 03/31/17 11/26/20 [address] [place] [phone] documented as of this encounter
--- OUTSIDE RECORDS SUMMARY | 2022-07-05 09:34 | XMS_ITS | Encounter Summary ---
:1995 Author Organization [facility] Address [address] [place] [address] Care Team Providers Name Role Phone Unavailable Primary Care Provider Unavailable Encounter Details Date Type Department Care Team Description 09/14/2013 Hospital Encounter HX [facility] FB FAMILYPRA Sherlyn Eaton i, M.D. [address] [place] [address] (Wo rk) Social History Tobacco Use Types Packs/Day Years Used Date Smoking Tobacco: Never Assessed Sex Assigned at Date Recorded Not on file documented as of this encounter Last Filed Vital Signs Vital Sign Reading Time Taken Comments Blood Pressure 118/72 09/14/2013 1:35 PM MOLD SHIFTER Pulse 64 09/14/2013 1:35 PM MOLD SHIFTER Temperature - - Respiratory Rate 16 09/14/2013 1:35 PM MOLD SHIFTER Oxygen Saturation - - Inhaled Oxygen Concentration - - Weight 67 kg (147 lb 11.3 oz) 09/14/2013 1:35 PM MOLD SHIFTER Height 162 cm (5' 3.78) 09/14/2013 1:35 PM MOLD SHIFTER Body Mass Index 25.53 09/14/2013 1:35 PM MOLD SHIFTER Body Mass Index Percentile 83.71 % 09/14/2013 1:35 PM CS T Growth Chart: CDC (Girls, 2-20 Years) documented in this encounter Progress Notes Sherlyn Solis M.D. - 09/14/2013 1:23 PM CST [id number] CHIEF COMPLAINT/ REASON FOR VISIT Vaginal irritation. [...] their behalf by Gin Sweet, a trained senior medical technologist. The creation of this record is based on the scribe's personal observations and the provider's statements to them. This document has been eze cked and approved by the attending provider. Sherlyn Becker M.D./bambi Electronically Signed By: SHERLYN BECKER MD On: 10/14/2013 11:29 AM Source: [facility] MHSDOLBEYNONRADSYS Document Id: [id number] SHIFTER documented in this encounter Miscellaneous Notes Miscellaneous - Gwen Avina R.N. - 10/27/2016 9:54 AM CST trinessa Document Contains Addenda Addendum by SHERLYN SOLIS MD on October 27, 2016 21:34:00 MOLD SHIFTER From: SHERLYN SOLIS MD To: GWEN AVINA RN; Sent: 10/27/2016 21:34:00 MOLD SHIFTER Subject: RE: trinessa sent From: GWEN AVINA RN To: SHERLYN SOLIS MD; Sent: 10/27/2016 09:54:37 MOLD SHIFTER Subject: trinessa Caller is: ( ) Patient [...] Call to Pharmacy ( ) Patient will pepper picker Script ( ) Mail Rx to Patient Source: [facility] POWERCHART Document Id: [id number] Electronically signed by Conversion, [facility] Pellet Machine Operator [id number] at 03/16/2017 4:56 PM CDT Miscellaneous - [...] Call to Pharmacy ( ) Patient will pepper picker Script ( ) Mail Rx to Patient Source: [facility] POWERCHART Document Id: [id number] Telephone Encounter - Conversion, Historical Provider Ser - 10/03/2013 9:10 AM CST Phone Message Document Contains Addenda Addendum by ANDERSON GARDUNO LPN on 04 October 2013 08:40:49 MOLD SHIFTER notified Addendum by ALEXANDER SALAMANCA LPN on 03 October 2013 16:57:02 MOLD SHIFTER From: ALEXANDER SALAMANCA LPN To: SHERLYN BECKER MD; Sent: 10/03/2013 16:57:02 MOLD SHIFTER Subject: RE: Phone Message I left a message for Ishaan to call back to let you know what her symptoms are, is it pain vaginally, a UTI, or cramping. I left the message that a script had been called in and she would need to be seen if things did not get better. Addendum by SHERLYN BECKER MD on 03 October 2013 16:34:06 MOLD SHIFTER From: SHERLYN BECKER MD To: ANDERSON GARDUNO LPN; ALEXANDER SALAMANCA LPN; Sent: 10/03/2013 16:34:06 MOLD SHIFTER Subject: RE: Phone Message I sent another rx for flagyl. If she is having symptoms other than last time, she may need further evaluation. Addendum by ANDERSON GARDUNO LPN on 03 October 2013 12:08:49 MOLD SHIFTER From: ANDERSON GARDUNO LPN To: SHERLYN BECKER MD; Sent: 10/03/2013 12:08:49 MOLD SHIFTER Subject: FW: Phone Message pt responded not really . and not right now. and that she has been wearing pads. Addendum by SHERLYN BECKER MD on 03 October 2013 09:12:36 MOLD SHIFTER From: SHERLYN BECKER MD To: ANDERSON GARDUNO LPN; Sent: 10/03/2013 09:12:36 MOLD SHIFTER Subject: RE: Phone Message Vaginal irritation or cramping or...? Did the flagyl help last time? From: ANDERSON GARDUNO LPN To: SHERLYN BECKER MD; ANDERSON GARDUNO LPN; Sent: 10/03/2013 09:10:20 MOLD SHIFTER Subject: Phone Message Caller is: ( ) [...] back cell phone number ( ) [facility] Document Id: [id number] Miscellaneous - Sherlyn Solis M.D. - 09/23/2013 11:53 PM MOLD SHIFTER Custom Result Letter 23 September 2013 ISHAAN SULLIVAN [facility] [id number] Dear ISHAAN SULLIVAN, Testing for herpes and chlamydia is negative Result Name Current Result Normal Range HSV PCR [facility] cervical 09/14/2013 HSV 1 [facility]-[place] Negative 09/14/2013 Negative - HSV 2 PCR-[place] Negative 09/14/2013 Negative - C trach Amp [facility] endocervical 09/14/2013 C trach Amp RNA-[place] Negative 09/14/2013 Negative - Sincerely, SHERLYN BECKER [address] [place], [place] [id number] Electronic Signature Electronically Signed By: SHERLYN BECKER MD On: 23 September 2013 This document has images extracted. Source: [facility] POWERCHART Document Id: [id number] Electronically signed by Gonzalo, [facility] Pellet Machine Operator [id number] at 03/16/2017 4:56 PM CDT Miscellaneous - Sherlyn Solis M.D. - 09/14/2013 2:23 PM MOLD SHIFTER Ambulatory Patient Summary [address] [place] [address] Visit Information Name: ISHAAN SULLIVAN [facility] Number: [id number] Current Date: 09/14/2013 14:23:16 Physicians [...] day x 7 day(s) New Routed to [place] [address] [place] [address] norgestimate-ethinyl estradiol (TriNessa oral tablet) 1 Tablet(s), [...] appointment detail needed. Your Goals/Additional instructions: Source: [facility] Trudev Document Id: [id number] SHIFTER Miscellaneous - Sherlyn Solis M.D. - 09/14/2013 2:23 PM MOLD SHIFTER Ambulatory Depart Summary [address] [address] Visit Information Name: ISHAAN SULLIVAN [facility] Number: [id number] Visit Date: 09/14/2013 14:23:15 Attending [...] day x 7 day(s) New Routed to [facility] [address] [place] [address] norgestimate-ethinyl estradiol (TriNessa oral tablet) 1 Tablet(s), [...] in case of emergency. Additional Information: Source: [facility] [employer]CHART Document Id: [id number] SHIFTER Miscellaneous - Conversion, Historical Provider Ser - 09/14/2013 1:35 PM MOLD SHIFTER Adult Disk Operator Intake/History Adult Disk Operator Intake/History Entered On: 09/14/2013 13:40 MOLD SHIFTER Performed On: 09/14/2013 13:35 MOLD SHIFTER by ANDERSON GARDUNO LPN Intake Chief Complaint [...] : 25.53 kg/m2 LALITO JENNIFER, ANDERSONSUMAN NGUYEN SECURITY AND COMPLIANCE PROJECT MANAGER - 09/14/2013 13:35 MOLD SHIFTER General Info Information Given By : Patient Languages : Prydeinig LALITO LEDEZMADEWEY ANDERSON WENDY SECURITY AND COMPLIANCE PROJECT MANAGER - 09/14/2013 13:35 MOLD SHIFTER Subjective Pain Symptoms : No LALITO JENNIFER, ANDERSONSUMAN NGUYEN LPN - 09/14/2013 13:35 MOLD SHIFTER Dependent Habits Tobacco Use/Currently Using : No Exposure to Tobacco Smoke : Lives with someone who smokes Smoking Status : Never smoker ANDERSON GARDUNO LPN - 09/14/2013 13:35 MOLD SHIFTER Tobacco Use Grid Other Tobacco Frequency : non ANDERSON GARDUNO LPN - 09/14/2013 13:35 MOLD SHIFTER Caffeine Use Grid Caffeine Use : Current Type : Chocolate, Coffee, Soft drinks Frequency : Daily Amount : 1 cup coffee ANDERSON GARDUNO LPN - 09/14/2013 13:35 MOLD SHIFTER Source: [facility] POWERCHART Document Id: [id number] MOLD SHIFTER!34 documented in this encounter Plan of Treatment Not on filedocumented as of this encounter Procedures Procedure Name Priority Date/Time Associated Comments Diagnosis C TRACH AMP SRC Routine 09/14/2013 2:06 PM Result s for this MOLD SHIFTER procedure are i n the results section. C TRACH AMP RNA Routine 09/14/2013 2:06 PM Result s for this MOLD SHIFTER procedure are i n the results section. HERPES SIMPLEX VIRUS Routine 09/14/2013 2:06 PM R esults for this PCR MOLD SHIFTER procedure are i n the results section. WET PREP EXAM, Routine 09/14/2013 2:06 PM Results for this UROGENITAL MOLD SHIFTER procedure are i n the results section. documented in this encounter Results HX-C trach Amp RNA (09/14/2013 2:06 PM MOLD SHIFTER) [facility] Method Time Signature Chlamydia Negative POWERCHART trachomatis amplified RNA Specimen (Source) Anatomical Collection Method Collection Time Re ceived Time Location / / Volume Laterality 09/14/2013 2:06 PM MOLD SHIFTER Narrative POWERCHART - 09/15/2013 7:30 PM MOLD SHIFTER Test Performed by: [place] [address] Underwater Trapper: Josemanuel foote III, M.D. Sherlyn Morales M.D. LAB HISTORICAL ORDERS Performing Organization Address City/[facility] Code Phon e Number POWERCHART HX-C trach Amp Src (09/14/2013 2:06 PM MOLD SHIFTER) [facility] Method Time Signature HXC trach Amp endocervical POWERCHART [facility] Specimen (Source) Anatomical Collection Method Collection Time Re ceived Time Location / / Volume Laterality 09/14/2013 2:06 PM MOLD SHIFTER Sherlyn Morales M.D. LAB HISTORICAL ORDERS Performing Organization Address [facility] [place]/[facility] Code Phon e Number POWERCHART Herpes Simplex Virus PCR (09/14/2013 2:06 PM MOLD SHIFTER) P athologist Signature HXHSV PCR cervical POWERCHART [facility] HSV 1 PCR, B Negative Negative POWERCHART HSV 2 PCR, B Negative Negative POWERCHART Comment: Analyte Specific Reagent: This test was developed and its performance characteristics determined b y [facility]. It has not been cleared or approved by the U.S. Food and Drug Administration. Test Performed by: [place] [address] Underwater Trapper: Josemanuel foote III, M.D. Specimen (Source) Anatomical Collection Method Collection Time Re ceived Time Location / / Volume Laterality Kim Review 09/14/2013 2:06 PM MOLD SHIFTER Sherlyn Morales M.D. LAB MICROBIOLOGY - GEN ERAL ORDERABLES Performing Organization Address City/[facility] Phon e Number POWERCHART (ABNORMAL) Wet Prep Exam, Urogenital (09/14/2013 2:06 PM MOLD SHIFTER) Analysis Performed At Patho logist Time Signature HXWet Prep (POSITIVE) POWERCHART HXFinal Trichomonas: POWERCHART Negative HXFinal Clue Cells: POWERCHART Positive HXFinal Yeast: POWERCHART Negative HXFinal Sperm: POWERCHART Negative Specimen (Source) Anatomical Collection Method Collection Time Re ceived Time Location / / Volume Laterality Vagina 09/14/2013 2:06 PM MOLD SHIFTER Sherlyn Morales M.D. LAB MICROBIOLOGY - GEN ERAL ORDERABLES Performing Organization Address City/[facility] Phon e Number POWERCHART documented in this encounter Visit Diagnoses Not on filedocumented in this encounter
--- OUTSIDE RECORDS SUMMARY | 2022-07-05 09:34 | XMS_ITS | Encounter Summary ---
:1995 Author Organization [facility] Address [address] [place] [address] Care Team Providers Name Role Phone Unavailable Primary Care Provider Unavailable Encounter Details Date Type Department Care Team Description 05/10/2012 Hospital Encounter HX [facility] FB FAMILYPRA Alina Eaton i, M.D. [address] [place] [address] (Wo rk) Social History Tobacco [...] Martinez M.D. - 05/10/2012 9:30 AM CDT [id number] CHIEF COMPLAINT/REASON FOR VISIT Ear pain. HISTORY [...] GONZALEZ MD On: 06/06/2012 09:28 AM Source: [facility] MHSDOLBEYNONRADSYS Document Id: [id number] documented in this encounter Miscellaneous Notes Miscellaneous - Nitin Avendano RCatNCat - 09/05/2015 4:18 PM CST Med Management Document Contains Addenda Addendum by ALINA MARTINEZ MD on 05 September 2015 16:22:57 GUN FITTER From: ALINA MARTINEZ MD To: DARIO [place] Medication Refill; Sent: 09/05/2015 16:22:57 GUN FITTER Subject: RE: Med Management done From: NITIN AVENDANO RN ( [place] Medication Refill) To: ALINA MARTINEZ MD; Sent: 09/05/2015 16:18:06 GUN FITTER Subject: Med Management On hold pending signature Order:norgestimate-ethinyl estradiol (TriNessa oral tablet) 1 tab(s) PO Daily Qty: 28 tab(s) Refills: 1 [facility] [place] Caller is: ( ) Patient [...] Call to Pharmacy ( ) Patient will fern picker Script ( ) Mail Rx to Patient Source: [facility] POWERCHART Document Id: [id number] Electronically signed by Gonzalo, [facility] Retirement Benefits Specialist [id number] at 03/19/2017 8:28 PM CDT Telephone Encounter - Conversion, Historical Provider Ser - 09/14/2013 11:06 AM CST Phone Message Document Contains Addenda Addendum by ANDERSON GARDUNO LPN on 14 September 2013 11:46:05 GUN FITTER notified Addendum by ALINA GONZALEZ MD on 14 September 2013 11:15:09 GUN FITTER From: ALINA GONZALEZ MD To: ANDERSON GARDUNO LPN; Sent: 09/14/2013 11:15:09 GUN FITTER Subject: RE: Phone Message needs appt. Have her come in this afternoon. From: ANDERSON GARDUNO LPN To: ALINA GONZALEZ MD; ANDERSON GARDUNO LPN; Sent: 09/14/2013 11:06:59 GUN FITTER Subject: Phone Message Caller is: ( ) [...] back cell phone number ( ) Source: [facility] POWERCHART Document Id: [id number] Miscellaneous - Conversion, Historical Provider Ser - [...] Call to Pharmacy ( ) Patient will fern picker Script ( ) Mail Rx to Patient Source: [facility] 556 [employer]itnessCHART Document Id: [id number] Miscellaneous - Alina Martinez M.D. - 05/10/2012 5:57 PM CDT Ambulatory Depart Summary [address] [address] Visit Information Name: ISHAAN SULLIVAN Visit Date: [...] your provider for clarification. Additional Information: Source: [facility] 556 FitnessCHART Document Id: [id number] Miscellaneous - Alina Martinez M.D. - 05/10/2012 5:57 PM CDT Ambulatory Patient Summary [address] [address] Visit Information Name: ISHAAN SULLIVAN Current Date: [...] No Appointments found Your Goals/Additional instructions: Source: [facility] POWERCHART Document Id: [id number] Miscellaneous - Conversion, Historical Provider Ser - 05/10/2012 9:55 AM CDT Pediatric Bulk Filler Intake/History Pediatric Bulk Filler Intake/History Entered On: 05/10/2012 9:59 CDT Performed [...] GARDUNO LPN;Reviewed Date: 05/10/2012 9:53 CDT [facility] POWER[facility] Document Id: [id number] documented in this encounter Plan of Treatment Not on filedocumented as of this encounter Visit Diagnoses Not on filedocumented in this encounter
--- OUTSIDE RECORDS SUMMARY | 2022-07-05 09:34 | XMS_ITS | Encounter Summary ---
:1995 Author Organization [facility] Address [address] [place] [address] Care Team Providers Name Role Phone Unavailable Primary Care Provider Unavailable Encounter Details Date Type Department Care Team Description 01/18/2012 Hospital Encounter HX [facility] FB FAMILYPRA Sherlyn Eaton i, M.D. [address] [place] [address] (Wo rk) Social History Tobacco [...] GONZALEZ MD On: 03/10/2012 01:33 PM Source: [facility] MHSDOLBEYNONRADSYS Document Id: [id number] documented in this encounter Miscellaneous Notes Telephone Encounter - Conversion, Historical Provider Ser - 09/27/2012 1:15 PM CST Phone Message Document Contains Addenda Addendum by LILIANA ESTRADA on 27 September 2012 15:18:53 COMMISSIONER OF INTERNAL REVENUE Left message for mom. Addendum by SHERLYN GONZALEZ MD on 27 September 2012 13:59:07 COMMISSIONER OF INTERNAL REVENUE From: SHERLYN GONZALEZ MD To: LILIANA ESTRADA; Sent: 09/27/2012 13:59:07 COMMISSIONER OF INTERNAL REVENUE Subject: RE: Phone Message It's not unusual [...] MD; ANDERSON GARDUNO LPN; Sent: 09/27/2012 13:15:02 COMMISSIONER OF INTERNAL REVENUE Subject: Phone Message Caller is: ( ) [...] back cell phone number ( ) Source: [facility] [employer] TechnologyCHART Document Id: [id number] Nancycellamy - Sherlyn Martinez M.D. - 01/23/2012 4:58 PM CDT Results Notification Document Contains Addenda Addendum by BOB BISWAS on 24 January 2012 09:01:59 CDT Pt. notified. RHONA From: SHERLYN GONZALEZ MD To: ANDERSON GARDUNO LPN Sent: 01/23/2012 16:58:52 CDT ! Show up: 01/23/2012 21:58:52 [facility] Subject: Results Notification Actions: Notify patient of results Source: [facility] [employer] Document Id: [id number] Electronically signed by Gonzalo [facility] Marine Chronometer Assembler [id number] at 03/20/2017 6:28 AM CDT Andrey - Sherlyn Martinez M.D. - 01/18/2012 9:24 PM CDT Ambulatory Patient Summary [address] [address] Visit Information Name: ISHAAN SULLIVAN Current Date: [...] No Appointments found Your Goals/Additional instructions: Source: [employer] Document Id: [id number] Miscellaneous - Sherlyn Martinez M.D. - 01/18/2012 9:24 PM CDT Ambulatory Depart Summary [address] [address] Visit Information Name: ISHAAN SULLIVAN Visit Date: [...] your provider for clarification. Additional Information: Source: [employer] Document Id: [id number] Miscellaneous - Neymar Beebe, L.P.N. - 01/18/2012 9:11 AM CDT Pediatric Change Director Intake/History Pediatric Change Director Intake/History Entered On: 01/18/2012 9:16 CDT Performed [...] GARDUNO LPN;Reviewed Date: 01/18/2012 9:10 CDT [facility] POWERCHART Document Id: [id number] CDT!33 documented in this encounter Plan of [...] Time Signature HXLvl IV Surg Performed POWERCHART [facility] Comment: Test Performed by: [facility] Dpt of Lab Med and Pathology [address] [place] [address] Sports Teacher: Josemanuel foote III, M.D. Specimen Anatomical Collection Method Collection Time Receive d Time (Source) Location / / Volume Laterality Tissue 01/18/2012 1:20 PM 2 6:42 CDT AM CDT Historical Provider [facility] Performing Organization Address City/State/ZIP Code Phon e Number POWERCHART PATHOLOGY DERMPATH CONSULT, WET TISSUE (01/18/2012 1:20 PM CDT) [facility] Method Time Signature HXDrm Exam [id number] POWERCHART [facility] HXDrm Exam See Comment POWERCHART [facility] Comment: RESULT: Sherlyn Gonzalez M.D. HXDrm Exam Addr-[place] See Comment POWERCH ART Comment: [facility] [place] [address] [place] [address] Fax HXDrm Exam Site-[place] See Comment POWERCH ART Comment: A. ?? [...] entirely in casse tte B1. HXDrm Exam [facility] See Comment POWERCH ART Comment: A. ??Right flank mole, Skin: ??Compound nevus with congenital features B. ??Mid back, Skin: ??Compound nevus HXDrm Exam Sign-[place] See Comment POWERCH ART Comment: RESULT: 01/21/2012 12:35 ??Interpreted by: Shantel Rose M.D Report electronically signed by Shantel Rose M.D. Transcribed by: [email or web address] 01/21/2012 11:23:08 Test Performed by: [facility] Dpt of Lab Med and Pathology [address] [place] [address] Sports Teacher: Josemanuel ofote III, M.D. Specimen (Source) Anatomical Collection Method Collection Time Re ceived Time Location / / Volume Laterality Tissue 01/18/2012 1:20 PM CDT Sherlyn Morales M.D. LAB PATH DERM ORDERABL ES Performing Organization Address City/State/ZIP Code Phon e Number POWERCHART documented in this encounter Visit Diagnoses Not on filedocumented in this encounter
--- OUTSIDE RECORDS SUMMARY | 2022-07-05 09:34 | XMS_ITS | Encounter Summary ---
:1995 Author Organization [facility] Address [address] [place] [address] Care Team Providers Name Role Phone Unavailable Primary Care Provider Unavailable Encounter Details Date Type Department Care Team Description 11/03/2010 Hospital Encounter HX [facility] FBHB FAMILYPRA Sherlyn Eaton i, M.D. [address] [place] [address] (Wo rk) Social History Tobacco Use Types Packs/Day Years Used Date Smoking Tobacco: Never Assessed Sex Assigned at Date Recorded Not on file documented as of this encounter Progress Notes Sherlyn Martinez M.D. - 11/03/2010 12:00 AM CST [id number] IMPRESSION/REPORT/PLAN Irregular menstrual flow. We will check [...] GONZALEZ MD On 11/16/2010 09:46 AM Source: [facility] MHSDOLBEYNONRADSYS Document Id: [id number] H SALES SPECIALIST documented in this encounter Miscellaneous Notes Miscellaneous - Sherlyn Martinez M.D. - 11/04/2010 6:18 PM PSYCH SALES SPECIALIST Reminder Msg Document Contains Addenda Addendum by LILIANA ESTRADA on 05 November 2010 14:58:38 PSYCH SALES SPECIALIST mailed to patient. From: SHERLYN GONZALEZ MD To: ANDERSON GARDUNO LPN Sent: 11/04/2010 18:18:06 PSYCH SALES SPECIALIST ! Show up: 11/04/2010 18:17:00 PSYCH SALES SPECIALIST Subject: Reminder Msg Actions: Notify patient of results Due Date/Time: 11/04/2010 18:17:00 PSYCH SALES SPECIALIST Source: [facility] POWERCHART Document Id: [id number] Electronically signed by Gonzalo [facility] Firmware Engineer [id number] at 03/20/2017 9:34 AM CDT Miscellaneous - Conversion, Historical Provider Ser - 11/03/2010 10:25 AM PSYCH SALES SPECIALIST Pediatric Senior Ios Software Engineer Intake/History Pediatric Senior Ios Software Engineer Intake/History Entered On: 11/03/2010 10:28 PSYCH SALES SPECIALIST Performed On: 11/03/2010 10:25 PSYCH SALES SPECIALIST by ANDERSON GARDUNO LPN Intake Chief Complaint: amenorrhea LMP Date: 08/05/10 Temperature Core: 36.6C(Converted to: 97.9DegF) Peripheral Pulse Rate: 80/min Systolic Blood Pressure: 120mmHg Diastolic Blood Pressure: 68mmHg NIBP Mean: 85mmHg BP Location: Right upper extremity Height: 163.00cm(Converted to: 5ft 4in, 64.17in) Actual Weight: 62.500kg(Converted to: 137lb 13oz) Dosing Weight Clinic: 62.50kg Clinic BSA: 1.68 Body Mass Index: 24kg/m2 ADNERSON GARDUNO LPN - 11/03/2010 10:25 PSYCH SALES SPECIALIST Subjective Pain Symptoms: No ANDERSON GARDUNO LPN - 11/03/2010 10:25 PSYCH SALES SPECIALIST Dependent Habits Tobacco Use/Currently Using: No ANDERSON GARDUNO LPN - 11/03/2010 10:25 PSYCH SALES SPECIALIST Tobacco Use Grid Other Tobacco Frequency: non ANDERSON GARDUNO LPN - 11/03/2010 10:25 PSYCH SALES SPECIALIST Allergy Allergies (Active) NKA Estimated Onset Date: Unspecified ; Created By: ANDERSON GARDUNO LPN; Reaction Status: Active ; Category: Drug ; Substance: NKA ; Type: Allergy ; Updated By: ANDERSON GARDUNO LPN;Reviewed Date: 06/12/2010 12:31 CDT Source: [facility] POWERCHART Document Id: [id number] PSYCH SALES SPECIALIST!22 documented in this encounter Plan of Treatment Not on filedocumented as of this encounter Visit Diagnoses Not on filedocumented in this encounter
--- OUTSIDE RECORDS SUMMARY | 2022-07-05 09:34 | XMS_ITS | Encounter Summary ---
:1995 Author Organization [facility] Address [address] [place] [address] Care Team Providers Name Role Phone Unavailable Primary Care Provider Unavailable Encounter Details Date Type Department Care Team Description 06/12/2010 Hospital Encounter [facility] Sherlyn Eaton i, M.D. [address] [place] [address] (Wo rk) Social History Tobacco Use Types Packs/Day Years Used Date Smoking Tobacco: Never Assessed Sex Assigned at Date Recorded Not on file documented as of this encounter Progress Notes Sherlyn Martinez M.D. - 06/12/2010 12:00 AM CDT [id number] IMPRESSION/REPORT/PLAN She has underlying eczema. This will [...] GONZALEZ MD On 07/09/2010 05:49 PM Source: [facility] [email or web address] Document Id: [id number] documented in this encounter Miscellaneous Notes Miscellaneous - Conversion, Historical Provider Ser - 06/12/2010 12:30 PM CDT Adult Cloth Desizing Range Operator Chief Intake/History Adult Cloth Desizing Range Operator Chief Intake/History Entered On: 06/12/2010 12:31 CDT Performed [...] CDT Dependent Habits Tobacco Use/Currently Using: No ANDEROSN GARDUNO LPN - 06/12/2010 12:30 CDT Allergies Source: [facility] POWERCHART Document Id: [id number] CDT!18 documented in this encounter Plan of Treatment Not on filedocumented as of this encounter Visit Diagnoses Not on filedocumented in this encounter
== END 2022-07-05 07:08 | disposition home or self-care (01) ==
LOC: NFLDREF 09:30
PROVIDERS: PCP Family Medicine; Visit Provider Family Medicine
DX: E03.9 Hypothyroidism, unspecified (principal)
CPT/HCPCS: 84443

== ENCOUNTER 2022-08-30 09:21 | Outpatient (CLI) | payer MEDICAID, SELFPAY | END 2022-08-30 09:22 | disposition home or self-care (01) | LOC: FBOREF 09:21 | PROVIDERS: PCP Family Medicine; Visit Provider Family Medicine | DX: E03.9 Hypothyroidism, unspecified (principal) | CPT/HCPCS: 84443 ==

== ENCOUNTER 2022-11-02 10:28 | Outpatient (CLI) | payer MEDICAID, SELFPAY | END 2022-11-02 10:29 | disposition home or self-care (01) | LOC: FBOREF 10:30 | PROVIDERS: PCP Family Medicine; Visit Provider Family Medicine | DX: E03.9 Hypothyroidism, unspecified (principal) | CPT/HCPCS: 84443 ==

== ENCOUNTER 2023-10-13 13:20 | Outpatient (CLI) | payer MEDICAID, SELFPAY | END 2023-10-13 13:21 | disposition home or self-care (01) | LOC: NFLDREF 10-14 05:24 | PROVIDERS: PCP Family Medicine; Referring Provider Family Medicine; Visit Provider Family Medicine | DX: E03.9 Hypothyroidism, unspecified (principal) | CPT/HCPCS: 84443 ==

== ENCOUNTER 2024-04-12 13:51 | Outpatient (CLI) | payer OTHER, MEDICAID, SELFPAY | END 2024-04-12 13:52 | disposition home or self-care (01) | PROVIDERS: PCP Nurse Practitioner Family; Visit Provider Nurse Practitioner Family | DX: E03.9 Hypothyroidism, unspecified (principal); E78.5 Hyperlipidemia, unspecified | CPT/HCPCS: 84443; 86376 ==

== ENCOUNTER 2024-06-14 07:02 | Outpatient (CLI) | payer OTHER, SELFPAY ==
--- NOTE | 2024-06-14 07:15 | CRLHL7_ITS ---
For Patients: As a result of the Century Cures Act, medical imaging exams and procedure reports are released immediately into your electronic medical record. You may view this report before your referring provider. If you have questions, please contact your health care provider. Indication: Thoracic spine pain. Technique: Multiplanar, multisequence MRI of the thoracic spine was performed without the use of intravenous contrast. Comparison: Thoracic spine radiographs 05/28/2024. Findings: The vertebral body heights are maintained without evidence of fracture. No marrow infiltrative process. Disc space heights are preserved. No spondylolisthesis. No abnormal cord signal. T9-10: Shallow right subarticular disc protrusion without spinal canal or neural foraminal narrowing. No overt evidence of spinal canal or neuroforaminal compromise throughout the thoracic spine. Impression: 1. Minimal spondylosis without spinal canal or neural foraminal narrowing. 2. No abnormal cord signal. Dictated by Obi Torres MD @ 06/14/2024 3:26:11 PM (Electronically Signed)
== END 2024-06-14 07:03 | disposition home or self-care (01) ==
LOC: MRI 07:03
PROVIDERS: PCP Nurse Practitioner Family; Visit Provider Nurse Practitioner Family
DX: M54.6 Pain in thoracic spine (principal); M47.894 Other spondylosis, thoracic region
CPT/HCPCS: 72146

== ENCOUNTER 2024-08-24 12:35 | Outpatient (CLI) | payer OTHER, SELFPAY | END 2024-08-24 12:36 | disposition home or self-care (01) | PROVIDERS: PCP Nurse Practitioner Family; Visit Provider Nurse Practitioner Family | DX: F41.9 Anxiety disorder, unspecified (principal); E03.9 Hypothyroidism, unspecified; E78.5 Hyperlipidemia, unspecified; R53.83 Other fatigue; Z13.21 Encounter for screening for nutritional disorder | CPT/HCPCS: 82180; 82306; 82607; 83540; 84443; 84446; 84590; 84630; 85025 ==

== ENCOUNTER 2025-06-10 09:25 | Outpatient (CLI) | payer OTHER, SELFPAY | END 2025-06-10 09:26 | disposition home or self-care (01) | LOC: KYNREF 09:26 | PROVIDERS: PCP Nurse Practitioner Family; Visit Provider Nurse Practitioner Family | DX: E03.9 Hypothyroidism, unspecified (principal) | CPT/HCPCS: 84443 ==

== ENCOUNTER 2025-07-04 09:20 | Emergency (ER) | payer OTHER, SELFPAY ==
--- OUTSIDE RECORDS SUMMARY | 2025-07-04 09:29 | XMS_ITS | Clinical Summary ---
Author Organization [facility] Address [address] [place] [address] Care Team Providers Care [address] Freight Name Role Phone Pcp, No Primary Care Provider Unavailabl e Allergies No known active allergies Medications escitalopram oxalate (LEXAPRO) 20 mg tablet Take 20 mg by mouth once daily. 09/04/2023 Active levothyroxine (SYNTHROID) 50 mcg tablet Take 50 mcg by mouth once daily. 09/09/2023 Active Active Problems No known active problems Immunizations Immunization Administration Dates Next Due DTaP 01/28/2000, 6,1995,1995 ,1995 Hepatitis B (Peds) 1995,1995, 995 Hepatitis B, Unspecified 1995,1995,0 1995 Inactivated Polio Vaccine 01/28/2000,1995, 1995,1995 Influenza, IIV3 (Age 6-35 mos) 08/04/2009 Influenza, IIV3 (Age >=3 years) 08/02/2011,08/03 Influenza, IIV4 (=>6mos) MDV 07/17/2019 MMR 01/28/2000,08/16/1996 MMRV 08/16/1996 Meningococcal Vaccine (Menactra) 01/26/2007 Meningococcal Vaccine (Menomune) 01/26/2007 Tdap 01/06/2018,01/26/2007 Family History Medical History Relation Name Comments Good Health Brother Thyroid Disease Father Cancer-breast Maternal Grandmother Diabetes Maternal Grandmother Thyroid Disease Mother Heart attack Paternal Grandfather Good Health Sister Relation Name Status Comments Brother Father Maternal Grandmother Mother Paternal Grandfather Sister Social History Tobacco Use Types Packs/Day Years Used Date Smoking Tobacco: Never Smokeless Tobacco: Never Tobacco Cessation:Counseling Given: Yes Alcohol Use Standard Drinks/Week Comments Yes 0 (1 standard drink = 0.6 oz pur e alcohol) PHQ-2 Answer Date Recorded PHQ-2 Score 0 07/17/2019 Comments No Sex and Gender Information Value Date Recorded Sex Assigned at Not on file 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 Gender Identity Not on file Sexual Orientation Not on file Obstetrics History Para Term AB IAB SAB Ectopic Multiple Livin g Live Births 1 1 1 0 0 1 Date Outcome GA Total Labor Labor/2nd/3rd Weight Sex Type Anes PTL Mera A1 A5 Name Clin Term Last Filed Vital Signs Vital Sign Reading Time Taken Comments Blood Pressure 120/71 06/22/2024 4:03 PM CDT Pulse 69 06/22/2024 4:03 PM CDT Temperature 36.7 C (98 F) 06/22/2024 4:03 PM CDT Respiratory Rate 18 06/22/2024 4:03 PM CDT Oxygen Saturation 100% 06/22/2024 4:03 PM CDT Inhaled Oxygen Concentration - - Weight 74.4 kg (164 lb) 06/22/2024 4:03 PM CDT Height 163.8 cm (5' 4.5) 07/17/2019 10:58 AM CD T Body Mass Index 27.72 07/17/2019 10:58 AM CDT Plan of Treatment Health Maintenance Due Date Last Done Comments HIV for age 15-65 2010 Hepatitis C screening for age 18-79 2013 BMI (ht and wt on same day) for age 18+ 07/17/2020 07/17/2019, 05/30/2018 Depression screening for age 12+ 07/17/2020 07/17/2019, 07/17/2019 HPV series for age 9-45 (1 - 3-dose SCDM series) 2022 Pap test for age 21-65 02/28/2024 02/27/2021, 06/02/ 2017 COVID-19 vaccine series ( season) 2025 Influenza Vaccine (#1) 2025 9, 08/02/2011, 08/03/2010, Additional history exists Tetanus booster 01/07/2028 01/06/2018, 01/26/2007 RSV vaccine for adults or (1 - 1-dose 75+ series) 2070 Hepatitis B series for 19+ Completed 10/11, 1995, 1995, Additional history exists Pneumococcal series for age 6-49 Aged Out No longer eligible based on patient's age to complete this topic Procedures Procedure Name Priority Date/Time Associated Diagnosis Comments 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 THIN PREP PAP SCREEN IMAGED Routine 02/27/2021 11:45 AM CDT from Last 3 Months or Most Recently Relevant to Health Maintenance Results * 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 THIN PREP PAP SCREEN IMAGED (02/27/2021 11:45 AM CDT) Case Report Gynecologic Cytology Report Case: [id number] Authorizing Provider: Radhika Gardner Collected: 02/27/2021 1145 MMD Ordering Location: [facility] Received: 03/02/2021 0913 First Screen: Fabiano Aguilar Rescreen: Mana Elam Specimen: 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 ThinPrep Vial Screening, Cervical/Vaginal 03/11/2021 10:17 AM CDT [facility] INTERPRETATION/ RESULT NEGATIVE FOR INTRAEPITHELIAL LESION OR MALIGNANCY (NIL) (none) 03/11/2021 10:17 AM CDT [facility] at 1017 CDT SPECIMEN ADEQUACY Satisfactory for evaluation Endocervical component present 03/11/2021 10:17 AM CDT [facility] HPV REQUEST HPV if ASCUS 03/11/2021 10:17 AM CDT [facility] Date of LMP 12/10/2020 03/11/2021 10:17 AM CDT [facility] Last Pap Date 03/18/2017 03/11/2021 10:17 AM CDT [facility] Last Pap Result NIL 10:17 AM CDT [facility] Menstrual Status 03/11/2021 10:17 AM CDT [facility] Additional Information 03/11/2021 10:17 AM CDT [facility] Comment: Interpreted at [facility] - [address], [place] [address] Automated Review Successful 03/11/2021 10:17 AM CDT [facility] Comment:Specimen processed s uccessfully by automated station operator device, ThinPrep Imaging System, [employer] Note The pap test is a screening technique, not a diagnostic procedure. It is used primarily to screen for squamous cancers and precursor lesions. Published studies have shown that it is subject to both false negative and false positive results. The pap test should not be used as the sole means to diagnose or exclude pre-malignant and malignant lesions. 03/11/2021 10:17 AM CDT [facility] Other (Cervical/Vagina l) 02/27/2021 11:45 AM CDT 03/02/2021 9:13 AM CDT us Radhika Gardner MD PATHOLOGY/CYTOLOGY Final Result [facility] [address] [place] [address], [place] from Last 3 Months or Most Recently Relevant to Health Maintenance Insurance [facility] Care Teams [address] Freight Relationship Specialty Start Date End Date Pcp, No . PCP - General 07/17/12
[2025-07-04 09:48] VITALS: BP 107/68; PULSE 66; RESP 16; TEMP 36.2; O2SAT 99; BMI 26.6
--- NOTE | 2025-07-04 10:15 | ED.BACK ---
HPI - Back Pain/Injury General Date Seen: 07/04/25 Chief Complaint: Back Injury/Pain Stated Complaint: back injury Time Seen by Provider: 07/04/25 09:54 Source: patient Mode of arrival: ambulatory Limitations: no limitations History of Present Illness HPI Narrative: Patient is a 30-year-old female presenting to the emergency department for right flank pain. She states she was working out and doing a chronic when she acutely developed this right flank pain. She states she had this exact same pain before and was told she had a muscle strain. She did physical therapy for it which helps some and then saw her chiropractor which she states helped more. States she was discharged home at that time with muscle relaxer and ibuprofen. She did not like the muscle relaxer cousin made her sleepy but did use ibuprofen. That injury occurred well lifting something at work. She states this time she was at the gym. Again states it feels exactly the same. Denies saddle anesthesia, urinary retention, urinary incontinence, history of IV drug use, fevers, chills. No other concerns noted. Related Data Previous Rx's ?Medication ?Instructions ?Recorded escitalopram oxalate 20 mg tablet 20 mg PO QDAY #90 tabs 06/10/25 hydroxyzine pamoate 25 mg capsule 25 mg PO BID PRN anxiety #180 caps 06/10/25 levothyroxine 50 mcg tablet 50 mcg PO QDAY #90 tabs 06/10/25 Allergies Allergy/AdvReac Type Severity Reaction Status Date / Time No Known Drug Allergies Allergy Verified 06/10/25 09:08 Review of Systems Narrative: Pertinent systems reviewed and were negative unless stated in HPI PFSH PFSH Medical History Major depression, single episode ?F32.9 - Major depressive disorder, single episode, unspecified (ICD-10) LANE (generalized anxiety disorder) ?F41.1 - Generalized anxiety disorder (ICD-10) -induced hypertension ?O13.9 - Gestational [-induced] hypertension without significant proteinuria, unspecified trimester (ICD-10) Hypothyroidism ?E03.9 - Hypothyroidism, unspecified (ICD-10) Hyperlipidemia ?E78.5 - Hyperlipidemia, unspecified (ICD-10) Group B Streptococcus carrier, +RV culture, currently ?O99.820 - Streptococcus B carrier state complicating (ICD-10) Colitis due to Clostridium difficile ?A04.72 - Enterocolitis due to Clostridium difficile, not specified as recurrent (ICD-10) Surgical History Normal spontaneous vaginal delivery ?O80 - Encounter for full-term uncomplicated delivery (ICD-10) Family History Maternal Grandmother Diabetes Thyroid dysfunction Grandfather Stroke Other Breast cancer High blood pressure Social History Narrative: SOCIAL HISTORY: Long-term partner who is a father both of her children ages 5 months and 4 years. She lives in [place]. She is sexually active. She walks about 3 times per week but this was just recently started. HABITS: No tobacco or recreational drug use. Alcohol use is rare only about 1 drink per month. FAMILY HISTORY: Grandfather with stroke. Grandmother with breast cancer. Grandmother with diabetes. Father and other family members with mental illness. Father's side with hypothyroidism affecting many relatives. Smoking Status: Never smoker Do you use any of these nicotine containing products: None Second hand tobacco smoke exposure: No Exam Narrative: Exam Narrative: Const: Well-nourished, Well-developed, in mild distress Eyes: PERRL, no conjunctival injection, and symmetrical lids HENT: Atraumatic external nose and ears. Moist mucous membranes. MSK:Extremities w/o deformity, Normal Active ROM, tenderness to right paraspinal muscles around T10 Skin: Warm, Dry. No rashes or lesions. Neuro: Normal Muscle tone, No focal neurological deficits. Psych: Awake, Alert, & Oriented x3. Appropriate mood and affect. Const: Vital Signs, click to edit/add: Vital Signs - 24 hr 07/04/25 09:48 Temperature 97.2 F L Pulse Rate [Pulse Oximeter] 66 Respiratory Rate 16 Blood Pressure [Ri ght Upper Arm] 107/68 Pulse Oximetry 99 Oxygen Delivery Me thod Room Air Course Vital Signs Vital signs: Initial Vital Signs Temperature 97.2 F L 07/04/25 09:48 Temperature Source Temporal Artery Scan 07/04/25 09:48 Pulse Rate 66 07/04/25 09:48 Pulse Rhythm Regular 07/04/25 09:48 Respiratory Rate 16 07/04/25 09:48 Blood Pressure 107/68 07/04/25 09:48 Blood Pressure Mean 81 07/04/25 09:48 Blood Pressure Position Sitting 07/04/25 09:48 Pulse Oximetry 99 07/04/25 09:48 Oxygen Delivery Method Room Air 07/04/25 09:48 Vital Signs Temperature 97.2 F L 07/04/25 09:48 Pulse Rate 66 07/04/25 09:48 Respiratory Rate 16 07/04/25 09:48 Blood Pressure 107/68 07/04/25 09:48 Pulse Oximetry 99 07/04/25 09:48 Oxygen Delivery Method Room Air 07/04/25 09:48 Temperature 97.2 F L 07/04/25 09:48 Pulse Rate 66 07/04/25 09:48 Respiratory Rate 16 07/04/25 09:48 Blood Pressure 107/68 07/04/25 09:48 Pulse Oximetry 99 07/04/25 09:48 Oxygen Delivery Method Room Air 07/04/25 09:48 MDM - Back Pain/Injury MDM Narrative Medical decision making narrative: Patient is a 30-year-old female presenting for right-sided back pain. Pain is around her right flank the considering the pain occurred suddenly while doing a workout seems unlikely to be a kidney stone. Appears much more likely to be a muscle strain as she does describe this pain is exactly similar to her previous pain. Pain is reproducible with movement. Is tender to palpation. She has a low risk for AAA and I do not believe imaging is necessary. X-rays unlikely to show any abnormalities and CT scan would be unnecessary radiation for this is likely muscle strain. She is safe for discharge. Will be prescribed Toradol via instymeds. She is agreeable to this plan. States he is able to follow up outpatient if needed Discharge Plan Discharge Clinical Impression: Strain of lumbar region Qualifiers: Encounter type: initial encounter Qualified Code(s): S39.012A - Strain of muscle, fascia and tendon of lower back, initial encounter Patient Disposition: Home, Self-Care Condition: Stable Instructions: Low Back Strain (ED) Additional Instructions: Take Toradol as needed for pain. [place] of via instymeds. When using the Toradol do not take other NSAIDs, for example naproxen or ibuprofen. You can use Tylenol though as it is a different class of drugs. Follow-up with your primary care provider if symptoms persist. Return to emergency department for new or worsening symptoms. Prescriptions: No Action escitalopram oxalate 20 mg tablet 20 mg PO QDAY Qty: 90 3RF hydroxyzine pamoate 25 mg capsule 25 mg PO BID PRN (Reason: anxiety) Qty: 180 3RF levothyroxine 50 mcg tablet 50 mcg PO QDAY Qty: 90 3RF Follow Up/Referrals: Meghan Ray APRN, BUSINESS TECHNOLOGY TEACHER [Primary Care Provider, Family Practice] Stand Alone Forms: The [email or web address] Info Instructions
== END 2025-07-04 10:28 | disposition home or self-care (01) ==
PROVIDERS: Emergency Provider Student in an Organized Health Care Education/Training Program; PCP Nurse Practitioner Family
DX: S39.012A Strain of muscle, fascia and tendon of lower back, initial encounter (principal); X50.0XXA Overexertion from strenuous movement or load, initial encounter
CPT/HCPCS: 99282; 99283